=== PATIENT | female | born 1950 | race Caucasian/White ===

== ENCOUNTER → 2017-08-22 14:49 | Outpatient (POV) | payer MEDICARE, MEDICAID, OTHER, SELFPAY ==
[2017-08-22 15:03] VITALS: BP 134/78; PULSE 97; RESP 15; O2SAT 97; BMI 37.0
--- NOTE | 2017-08-22 15:57 | HMH.PAINSOAP ---
[facility] Pain Management SOAP Note Subjective:: Patient is a 67-year-old white female who presents today to discuss increased right knee pain. Patient is currently being treated for chronic pain secondary to degenerative disc disease of the lumbar spine and lumbar radiculopathy. Patient has had arthritis in her right knee for some time. She has had injections in the past which have been very beneficial to her. She states she had 80-90% relief for several months. Patient is currently on diclofenac 75 mg 1 p.o. twice daily and gabapentin 600 mg 1 p.o. 4 times daily. Patient states that both medications are very helpful. She does not find the gabapentin as effective as it used to be. She denies any side effects to the medication. Patient has tried physical therapy in the past with no relief. She has had cervical pain increase. Patient states that she feels a cracking and popping at times. Patient is currently working on losing weight. ROS General: no recent weight change, no fever, no sleep disturbances Respiratory: Chronic cough, COPD Cardiovascular/Peripheral Vascular: No chest pain, No palpitations, no edema, no shortness of breath. Gastrointestinal: no incontinence, normal bowel movements reported Genitourinary: no incontinence Musculoskeletal: Back pain, neck pain, right knee pain Psychiatric: normal mood/ affect, Neurological: [denies weakness in extremities], [denies balance issues] Objective:: Physical Exam General: Alert and oriented x3, no acute distress, pleasant and cooperative, [on room air] Lungs: Resps E/U, Symmetrical chest expansion, Eyes: PERRL Musculoskeletal: Flexion and extension of cervical and lumbar spine somewhat guarded secondary to pain, deep tendon reflexes normal, strength in upper and lower extremities [5/5], [abnormal gait noted], tenderness to palpation of right knee Neurological: speech clear, occupational therapy professor equal, no gross sensory deficits Assessment:: Degenerative joint disease right knee, degenerative disc disease of the lumbar spine, cervical pain Plan:: We will plan intra-articular right knee injection to help with her arthritis. She has had such good relief with this in the past I believe that this would be advantageous for her. We will also order cervical spine MRI to assess pathology potential worsening neck pain. We will also increase her gabapentin to 800 mg 1 p.o. 4 times daily. Patient's [facility] #[id number] reviewed and appropriate. Dr. Singh has reviewed this chart and approves of the plan. We will follow-up with the patient after her cervical MRI. This note was dictated using voice recognition software and may contain errors or omissions
--- NOTE | 2017-08-22 16:00 | P.CONS_ITS ---
[facility] Pain Management SOAP Note Subjective:: Patient is a 67-year-old white female who presents today to discuss increased right knee pain. Patient is currently being treated for chronic pain secondary to degenerative disc disease of the lumbar spine and lumbar radiculopathy. Patient has had arthritis in her right knee for some time. She has had injections in the past which have been very beneficial to her. She states she had 80-90% relief for several months. Patient is currently on diclofenac 75 mg 1 p.o. twice daily and gabapentin 600 mg 1 p.o. 4 times daily. Patient states that both medications are very helpful. She does not find the gabapentin as effective as it used to be. She denies any side effects to the medication. Patient has tried physical therapy in the past with no relief. She has had cervical pain increase. Patient states that she feels a cracking and popping at times. Patient is currently working on losing weight. ROS General: no recent weight change, no fever, no sleep disturbances Respiratory: Chronic cough, COPD Cardiovascular/Peripheral Vascular: No chest pain, No palpitations, no edema, no shortness of breath. Gastrointestinal: no incontinence, normal bowel movements reported Genitourinary: no incontinence Musculoskeletal: Back pain, neck pain, right knee pain Psychiatric: normal mood/ affect, Neurological: [denies weakness in extremities], [denies balance issues] Objective:: Physical Exam General: Alert and oriented x3, no acute distress, pleasant and cooperative, [ on room air] Lungs: Resps E/U, Symmetrical chest expansion, Eyes: PERRL Musculoskeletal: Flexion and extension of cervical and lumbar spine somewhat guarded secondary to pain, deep tendon reflexes normal, strength in upper and lower extremities [5/5], [abnormal gait noted], tenderness to palpation of right knee Neurological: speech clear, staffing recruiter equal, no gross sensory deficits Assessment:: Degenerative joint disease right knee, degenerative disc disease of the lumbar spine, cervical pain Plan:: We will plan intra-articular right knee injection to help with her arthritis. She has had such good relief with this in the past I believe that this would be advantageous for her. We will also order cervical spine MRI to assess pathology potential worsening neck pain. We will also increase her gabapentin to 800 mg 1 p.o. 4 times daily. Patient's [facility] #[id number] reviewed and appropriate. Dr. Singh has reviewed this chart and approves of the plan. We will follow-up with the patient after her cervical MRI. This note was dictated using voice recognition software and may contain errors or omissions
--- NOTE | 2017-08-24 08:03 | PC.PHONENOTE ---
08/22/17-called in Rx for Gabapentin 800mg QID with 2 refills to pt pharmacy
== END ==
PROVIDERS: Family Provider Emergency Medicine; PCP Emergency Medicine; Visit Provider Clinical Nurse Specialist Family Health
DX: M25.561 Pain in right knee (principal); M54.16 Radiculopathy, lumbar region
CPT/HCPCS: 99212

== ENCOUNTER → 2017-09-01 09:28 | Outpatient (CLI) | payer MEDICARE, MEDICAID, SELFPAY ==
--- NOTE | 2017-09-01 09:35 | MR_ITS ---
MR cervical spine wo con HISTORY: Neck pain with right arm pain ITS.REASON: NECK PAIN ORDERING PHYSICIAN: Rafy Kiser MD PATIENT AGE: 67 years COMPARISON: Plain films of 08/29/2014 TECHNIQUE: Standard multiplanar multiecho sequences are performed without contrast. 3-D MIP and myelographic images are also rendered and reviewed FINDINGS: There is normal alignment. The craniocervical junction has an unremarkable appearance. C2-C3: Small left paracentral disc protrusion/herniation abutting the anterior aspect of the cord on the left with minimal contour deformity. There is narrowing of the canal at this level C3-C4: Small central disc protrusion abutting the anterior central aspect of the cord with narrowing of the canal at 10 mm. C4-C5: Small central disc protrusion abutting the anterior aspect of the cord without displacement or deformity with narrowing of the canal at 10 mm. C5-C6: Mild degenerative disc disease with mild bulging disc along with uncovertebral hypertrophy. There is narrowing of the canal at 10 mm there is mild right-sided foraminal narrowing from uncovertebral hypertrophy. C6-C7: Degenerative disc disease with bulging disc with minimal lobular central and right paracentral disc protrusion with resulting narrowing of the canal and right lateral recess narrowing. Sagittal images of the upper thoracic spine demonstrate minimal central disc protrusion versus disc bulges at C7-T1 and T1-T2 without impingement upon the cord. IMPRESSION: 1. Abnormal MRI of the cervical spine with multilevel cervical spondylosis with degenerative disc disease and canal stenosis with multilevel small disc protrusions. Please see above for detailed description at each level. 2. Small left paracentral disc protrusion/herniation at C2-C3 with minimal impingement upon the cord 3. Minimal lobular central and right paracentral disc protrusion at C6-C7 with right lateral recess narrowing
== END ==
PROVIDERS: Family Provider Emergency Medicine; PCP Emergency Medicine; Visit Provider Emergency Medicine
DX: M54.2 Cervicalgia (principal)
CPT/HCPCS: 72141; 76376

== ENCOUNTER 2017-09-16 11:51 | Day surgery (SDC) | payer MEDICARE, MEDICAID, SELFPAY ==
[2017-09-16 12:16] VITALS: BP 102/52; PULSE 73; O2SAT 96; BMI 36.1
[2017-09-16 12:42] VITALS: BP 110/55; PULSE 80; RESP 20
[2017-09-16 12:44] VITALS: BP 112/88; PULSE 82; RESP 20
--- NOTE | 2017-09-16 12:51 | HMH.PMPROC ---
- Procedure Date: 09/16/17 Time: 12:45 Anesthesiologist:: Adam Singh MD Complications:: None Pre-procedure Diagnosis:: Osteoarthritis of the right knee Post-procedure Diagnosis:: Same Indications for Procedure:: Patient is a pleasant 67-year-old white female who presents today for right intra-articular knee injection. She has had these injections in the past with good relief. Patient states she had 80-90% relief for several months with her last injections. Patient is interested in an additional intra-articular right knee injection today. I discussed the risks and benefits with her and she wishes to proceed. Procedure Details:: Same benefits of the procedure were explained to the patient and informed consent was obtained. Patient was taken to the procedure room where noninvasive monitors were placed including noninvasive blood pressure cuff and pulse oximeter. Right knee was prepped with ChloraPrep used as a cleansing solution. A 25-gauge needle was used first medially and then laterally to inject 10 mL of bupivacaine 0.25% and Depo-Medrol 40 mg. Bandages were placed after procedure. Patient tolerated the procedure well. Plan and Disposition:: We will see this patient back in 2 weeks to reassess her symptoms at that time. Patient is instructed to call the office if she has any issues prior to her appointment.
[2017-09-16 13:07] VITALS: BP 104/68; PULSE 85; RESP 16; O2SAT 95
== END 2017-09-16 12:50 | disposition home or self-care (01) ==
LOC: SC.PAINP 11:54
PROVIDERS: Family Provider Emergency Medicine; PCP Emergency Medicine; Visit Provider Anesthesiology
DX: M17.11 Unilateral primary osteoarthritis, right knee (principal)
CPT/HCPCS: 20610; J1040

== ENCOUNTER → 2017-10-03 09:38 | Outpatient (POV) | payer MEDICARE, MEDICAID, SELFPAY ==
[2017-10-03 10:05] VITALS: BP 138/76; PULSE 60; RESP 18; TEMP 36.6; O2SAT 96; BMI 36.1
--- NOTE | 2017-10-03 10:38 | HMH.PAINSOAP ---
[facility] Pain Management SOAP Note Subjective:: Patient is a pleasant 67-year-old white female who presents today for follow-up after right intra-articular knee injection. Patient states she had 3 days of pain relief however all of her pain came back. Patient has had rooster comb injections by Dr. Pagan in the past and wishes to have another one of these. Patient states she had 3 months relief with that injection. Patient is currently being managed with gabapentin 800 mg 1 p.o. daily. Patient states she is also having new onset muscle spasms. She is having pain on the right side of her body at her neck down her right arm and her right leg. Patient states that it is intermittent and muscular in nature. She rates her pain a 5 out of 10 today. ROS General: no recent weight change, no fever, no sleep disturbances Respiratory: no cough, no shortness of air, no recurring pulmonary infections Cardiovascular/Peripheral Vascular: No chest pain, No palpitations, no edema, no shortness of breath. Gastrointestinal: no incontinence, normal bowel movements reported Genitourinary: no incontinence Musculoskeletal: Neck pain, right knee pain Psychiatric: normal mood/ affect, Neurological: [denies weakness in extremities], [denies balance issues] Objective:: Physical Exam General: Alert and oriented x3, no acute distress, pleasant and cooperative, [on room air] Lungs: Resps E/U, Symmetrical chest expansion, Eyes: PERRL Musculoskeletal: Range of motion right knee somewhat guarded secondary to pain, deep tendon reflexes normal, strength in upper and lower extremities [5/5], [abnormal gait noted] Neurological: speech clear, industrial methods consultant equal, no gross sensory deficits Assessment:: Osteoarthritis of the right knee, muscle spasms Plan:: We will send the patient to Dr. Pagan for another rooster comb injection. We will continue her gabapentin 800 mg 1 p.o. 4 times daily and we will: Zanaflex 4 mg 1 p.o. 3 times daily as needed for 1 month. Patient's [facility] #[id number] reviewed and appropriate. We will follow-up with this patient in 3 months and reassess her symptoms at that time. This note was dictated using voice recognition software and may contain errors or omissions
--- NOTE | 2017-10-03 10:44 | P.CONS_ITS ---
[facility] Pain Management SOAP Note Subjective:: Patient is a pleasant 67-year-old white female who presents today for follow-up after right intra-articular knee injection. Patient states she had 3 days of pain relief however all of her pain came back. Patient has had rooster comb injections by Dr. Pagan in the past and wishes to have another one of these. Patient states she had 3 months relief with that injection. Patient is currently being managed with gabapentin 800 mg 1 p.o. daily. Patient states she is also having new onset muscle spasms. She is having pain on the right side of her body at her neck down her right arm and her right leg. Patient states that it is intermittent and muscular in nature. She rates her pain a 5 out of 10 today. ROS General: no recent weight change, no fever, no sleep disturbances Respiratory: no cough, no shortness of air, no recurring pulmonary infections Cardiovascular/Peripheral Vascular: No chest pain, No palpitations, no edema, no shortness of breath. Gastrointestinal: no incontinence, normal bowel movements reported Genitourinary: no incontinence Musculoskeletal: Neck pain, right knee pain Psychiatric: normal mood/ affect, Neurological: [denies weakness in extremities], [denies balance issues] Objective:: Physical Exam General: Alert and oriented x3, no acute distress, pleasant and cooperative, [ on room air] Lungs: Resps E/U, Symmetrical chest expansion, Eyes: PERRL Musculoskeletal: Range of motion right knee somewhat guarded secondary to pain, deep tendon reflexes normal, strength in upper and lower extremities [5/5], [ abnormal gait noted] Neurological: speech clear, roller leveler operator equal, no gross sensory deficits Assessment:: Osteoarthritis of the right knee, muscle spasms Plan:: We will send the patient to Dr. Pagan for another rooster comb injection. We will continue her gabapentin 800 mg 1 p.o. 4 times daily and we will: Zanaflex 4 mg 1 p.o. 3 times daily as needed for 1 month. Patient's [facility] #[id number] reviewed and appropriate. We will follow-up with this patient in 3 months and reassess her symptoms at that time. This note was dictated using voice recognition software and may contain errors or omissions
--- NOTE | 2017-10-04 13:09 | PC.PHONENOTE ---
Addendum entered by Destinee Shetty RN 10/04/17 13:11: Original note was incorrect. Gabapentin 800mg TID with 2 refills and Zanaflex 4mg TID with no refills was called into pt's pharmacy Original Note: 10/03/17-called in Rx for Gabapentin 800mg TId with 2 refills, Naproxen 500mg BID with 2 refills and Prednisone 20mg BID x5 days, no refills
== END ==
PROVIDERS: Family Provider Emergency Medicine; PCP Emergency Medicine; Visit Provider Clinical Nurse Specialist Family Health
DX: M17.11 Unilateral primary osteoarthritis, right knee (principal)
CPT/HCPCS: 99212

== ENCOUNTER → 2017-10-07 11:10 | Outpatient (CLI) | payer MEDICARE, MEDICAID, SELFPAY ==
--- NOTE | 2017-10-07 11:19 | XR_ITS ---
XR knee RT 4V COMPARISON: Right knee 03/18/2017 HISTORY: Right knee TECHNIQUE: AP lateral and oblique weightbearing views and sunrise view FINDINGS: There is moderate joint space narrowing medially. There is marked spurring of tibial spines. This faint calcification of the lateral meniscus. There is moderate narrowing of the patellofemoral space with spurring of the superior and inferior borders of the patella. There is no definite effusion. IMPRESSION: Prominent osteoarthritic changes of the knee which have shown interval progression from the previous study with more prominent tibial spine spurring and more prominent joint space narrowing medially. Mild chondrocalcinosis of the lateral meniscus is again noted
== END ==
PROVIDERS: PCP Emergency Medicine; Visit Provider Clinical Nurse Specialist Family Health
DX: M25.561 Pain in right knee (principal)
CPT/HCPCS: 73564

== ENCOUNTER → 2018-01-02 09:32 | Outpatient (POV) | payer MEDICARE, MEDICAID, SELFPAY ==
[2018-01-02 09:37] VITALS: BP 105/66; PULSE 52; RESP 18; O2SAT 98; BMI 38.0
--- NOTE | 2018-01-02 09:45 | HMH.PAINSOAP ---
[facility] Pain Management SOAP Note Subjective:: patient Is a pleasant 67-year-old white female who presents today for medication refills. Patient has been getting knee injections from Dr. Pagan and states that it helps some however it does not improve all the way. Patient is uninterested in surgical intervention at this time. Patient's currently being medically managed with gabapentin 800 mg 1 p.o. 4 times daily and Zanaflex 4 mg 1 p.o. 3 times daily. Patient states she is doing well on this she denies any side effects to the medication. She rates her pain as 7 out of 10 today. Patient's [facility] #[id number] reviewed and appropriate. ROS General: no recent weight change, no fever, no sleep disturbances Respiratory: no cough, no shortness of air, no recurring pulmonary infections Cardiovascular/Peripheral Vascular: No chest pain, No palpitations, no edema, no shortness of breath. Gastrointestinal: no incontinence, normal bowel movements reported Genitourinary: no incontinence Musculoskeletal: Neck pain, right knee pain Psychiatric: normal mood/ affect Neurological: [denies weakness in extremities], [denies balance issues] Objective:: Physical Exam General: Alert and oriented x3, no acute distress, pleasant and cooperative, [on room air] Lungs: Resps E/U, Symmetrical chest expansion, Eyes: PERRL Musculoskeletal: Range motion right knee somewhat guarded secondary to pain, deep tendon reflexes normal, strength in upper and lower extremities [5/5], [abnormal gait noted] Neurological: speech clear, live ammunition inspector equal, no gross sensory deficits Assessment:: Osteoarthritis of the right knee, muscle spasms Plan:: We will refill the patient's gabapentin 800 mg 1 p.o. 4 times daily and Zanaflex 4 mg 1 p.o. 3 times daily. Patient's [facility] has been reviewed and appropriate. Dr. Singh is reviewed this chart and agrees with this plan of care we will follow-up with the patient in 3 months. Patient is going continue with Dr. Pagan receiving rooster comb injections. This note was dictated using voice recognition software and may contain errors or omissions
--- NOTE | 2018-01-02 09:48 | P.CONS_ITS ---
[facility] Pain Management SOAP Note Subjective:: patient Is a pleasant 67-year-old white female who presents today for medication refills. Patient has been getting knee injections from Dr. Pagan and states that it helps some however it does not improve all the way. Patient is uninterested in surgical intervention at this time. Patient's currently being medically managed with gabapentin 800 mg 1 p.o. 4 times daily and Zanaflex 4 mg 1 p.o. 3 times daily. Patient states she is doing well on this she denies any side effects to the medication. She rates her pain as 7 out of 10 today. Patient's [facility] #[id number] reviewed and appropriate. ROS General: no recent weight change, no fever, no sleep disturbances Respiratory: no cough, no shortness of air, no recurring pulmonary infections Cardiovascular/Peripheral Vascular: No chest pain, No palpitations, no edema, no shortness of breath. Gastrointestinal: no incontinence, normal bowel movements reported Genitourinary: no incontinence Musculoskeletal: Neck pain, right knee pain Psychiatric: normal mood/ affect Neurological: [denies weakness in extremities], [denies balance issues] Objective:: Physical Exam General: Alert and oriented x3, no acute distress, pleasant and cooperative, [ on room air] Lungs: Resps E/U, Symmetrical chest expansion, Eyes: PERRL Musculoskeletal: Range motion right knee somewhat guarded secondary to pain, deep tendon reflexes normal, strength in upper and lower extremities [5/5], [ abnormal gait noted] Neurological: speech clear, corporate officer equal, no gross sensory deficits Assessment:: Osteoarthritis of the right knee, muscle spasms Plan:: We will refill the patient's gabapentin 800 mg 1 p.o. 4 times daily and Zanaflex 4 mg 1 p.o. 3 times daily. Patient's [facility] has been reviewed and appropriate. Dr. Singh is reviewed this chart and agrees with this plan of care we will follow-up with the patient in 3 months. Patient is going continue with Dr. Pagan receiving rooster comb injections. This note was dictated using voice recognition software and may contain errors or omissions
== END ==
PROVIDERS: Family Provider Emergency Medicine; PCP Emergency Medicine; Visit Provider Clinical Nurse Specialist Family Health
DX: M17.11 Unilateral primary osteoarthritis, right knee (principal)
CPT/HCPCS: 99212

== ENCOUNTER → 2018-03-27 13:35 | Outpatient (POV) | payer MEDICARE, MEDICAID, SELFPAY ==
[2018-03-27 14:34] VITALS: BP 123/68; PULSE 71; RESP 18; O2SAT 98; BMI 39.5
--- NOTE | 2018-03-27 14:56 | HMH.PAINSOAP ---
[facility] Pain Management SOAP Note Subjective:: Patient is a [id number]-[id number]-cdo white female who presents today for medication refills. Patient's been getting the injections from Dr. Pagan however she states she still having knee pain. Patient is also asking me about a back brace. Patient states that her back is giving her trouble. Patient is currently on gabapentin 800 mg 1 p.o. 4 times daily and Zanaflex 4 mg 1 p.o. 3 times daily. Patient is doing well in regards to her medication and denies any side effects. She rates her pain today a 6 out of 10. ROS General: no recent weight change, no fever, no sleep disturbances Respiratory: no cough, no shortness of air, no recurring pulmonary infections Cardiovascular/Peripheral Vascular: No chest pain, No palpitations, no edema, no shortness of breath. Gastrointestinal: no incontinence, normal bowel movements reported Genitourinary: no incontinence Musculoskeletal: Back pain, right knee pain Psychiatric: normal mood/ affect Neurological: [denies weakness in extremities], [denies balance issues] Objective:: Physical Exam General: Alert and oriented x3, no acute distress, pleasant and cooperative, [on room air] Lungs: Resps E/U, Symmetrical chest expansion, Eyes: PERRL Musculoskeletal: Flexion and extension of lumbar spine somewhat guarded secondary to pain, deep tendon reflexes normal, strength in upper and lower extremities [5/5], [abnormal gait noted] Neurological: speech clear, meter shop supervisor equal, no gross sensory deficits Assessment:: Arthritis of the right knee, degenerative disc disease lumbar spine with lumbar radiculopathy Plan:: We will refill the patient's gabapentin 800 mg 1 p.o. 4 times daily. Patient's [facility] has been reviewed. Dr. Singh has agreed with this. We will follow-up with this patient and see if this is beneficial. This note was dictated using voice recognition software and may contain errors or omissions
--- NOTE | 2018-03-27 14:59 | P.CONS_ITS ---
[facility] Pain Management SOAP Note Subjective:: Patient is a unbvrapt-jonf-bfe white female who presents today for medication refills. Patient's been getting the injections from Dr. Pagan however she states she still having knee pain. Patient is also asking me about a back brace. Patient states that her back is giving her trouble. Patient is cu rrently on gabapentin 800 mg 1 p.o. 4 times daily and Zanaflex 4 mg 1 p.o. 3 times daily. Patient is doing well in regards to her medication and denies any side effects. She rates her pain today a 6 out of 10. ROS General: no recent weight change, no fever, no sleep disturbances Respiratory: no cough, no shortness of air, no recurring pulmonary infections Cardiovascular/Peripheral Vascular: No chest pain, No palpitations, no edema, no shortness of breath. Gastrointestinal: no incontinence, normal bowel movements reported Genitourinary: no incontinence Musculoskeletal: Back pain, right knee pain Psychiatric: normal mood/ affect Neurological: [denies weakness in extremities], [denies balance issues] Objective:: Physical Exam General: Alert and oriented x3, no acute distress, pleasant and cooperative, [on room air] Lungs: Resps E/U, Symmetrical chest expansion, Eyes: PERRL Musculoskeletal: Flexion and extension of lumbar spine somewhat guarded secondary to pain, deep tendon reflexes normal, strength in upper and lower extremities [5/5], [abnormal gait noted] Neurological: speech clear, barrel plater equal, no gross sensory deficits Assessment:: Arthritis of the right knee, degenerative disc disease lumbar spine with lumbar radiculopathy Plan:: We will refill the patient's gabapentin 800 mg 1 p.o. 4 times daily. Patient's [facility] has been reviewed. Dr. Singh has agreed with this. We will follow-up with this patient and see if this is beneficial. This note was dictated using voice recognition software and may contain errors or omissions
--- NOTE | 2018-07-28 13:45 | PC.NURSE ---
gabapentin 800mg qid with 2 refills faxed to [facility] per provider order
== END ==
PROVIDERS: Family Provider Emergency Medicine; PCP Emergency Medicine; Visit Provider Clinical Nurse Specialist Family Health
DX: M51.16 Intervertebral disc disorders with radiculopathy, lumbar region (principal); M17.11 Unilateral primary osteoarthritis, right knee
CPT/HCPCS: 99213

== ENCOUNTER → 2018-06-14 14:30 | Outpatient (CLI) | payer MEDICARE, MEDICAID, SELFPAY ==
--- NOTE | 2018-06-14 14:32 | XR_ITS ---
XR knee LT 4V HISTORY: Left knee pain ITS.REASON: knee pain ORDERING PHYSICIAN: Johnny Ruggiero PATIENT AGE: 68 years COMPARISON: None FINDINGS: No fracture or dislocation. No lytic or blastic change. Normal mineralization. Mild to moderate osteoarthritic changes are present involving all 3 compartments mainly manifested by osteophyte formation with some decrease in the joint space. IMPRESSION: [id number] osteoarthritis
--- NOTE | 2018-06-14 14:32 | XR_ITS ---
EXAM: XR lumbar spine 2-3V HISTORY: ITS.REASON: back pain ORDERING PHYSICIAN: Johnny Ruggiero PATIENT AGE: 68 years COMPARISON: None FINDINGS: Normal alignment. There is mild multilevel degenerative disc disease from T12 to S1 with some decrease in the disc spaces and anterior osteophytes. Facet arthritic changes are present at L4-5 and L5-S1. No fracture or dislocation. No lytic or blastic change. IMPRESSION: Lumbar spondylosis with degenerative disc disease and facet arthritic change
== END ==
PROVIDERS: PCP Nurse Practitioner Family; Visit Provider Nurse Practitioner Family
DX: M79.605 Pain in left leg (principal); M54.9 Dorsalgia, unspecified
CPT/HCPCS: 72100; 73564

== ENCOUNTER → 2018-07-12 09:52 | Outpatient (CLI) | payer MEDICARE, MEDICAID, SELFPAY ==
--- NOTE | 2018-07-12 10:00 | US_ITS ---
US Arterial Ankle Brachial Ind History: ITS.REASON: Leg pain bilateral rest pain left greater than right with claudication, ORDERING PHYSICIAN: Vicky Donohue PATIENT AGE: 68 years TECHNIQUE: Segmental pressures obtained of both right and left leg. These are compared to brachial blood pressure to yield index at each level sampled including summary FRANCISCO. The data sheets from the procedure are available in PACS FINDINGS Rest study only performed today No prior studies available for comparison. Blood pressures reported are in millimeters mercury. RIGHT LEG FRANCISCO = 1.0. RIGHT LEG TBI=1.0 Brachial BP: 143 Thigh BP: 147 Calf BP: 149 Ankle PT: 137 Ankle DP : 138 Digit =159 LEFT LEG FRANCISCO = 1.0 LEFT LEG TBI= 0.9 Brachial BPD: 132 Thigh BP: 156 Calf BP: 168 Ankle PT:147 Ankle DP: 147 Digit = 123 Pulses and waveforms: Normal IMPRESSION: The ABIs as reported above are within normal limits. Waveforms and pulses are also unremarkable.
[2018-07-12 13:20] LABS: Alanine Aminotransferase 28 U/L (12-78); Albumin Level 3.8 gm/dL (3.4-5.0); Alkaline Phosphatase 102 U/L (46-116); Aspartate Amino Transferase 15 U/L (15-37); Bilirubin,Direct 0.1 mg/dL (0.0-0.2); Bilirubin,Indirect 0.2 mg/dL (0.0-0.9); Bilirubin,Total 0.3 mg/dL (0.2-1.0); Chol/HDL Ratio 3.1 (1-3.5); Cholesterol 174 mg/dL (140-200); HDL Cholesterol 56 mg/dL (29-89); LDL Cholesterol 101 mg/dL (0-130); Total Protein,Serum 7.3 gm/dL (6.4-8.2); Triglycerides 86 mg/dL (30-200); VLDL Cholesterol 17 mg/dL (0-40)
== END ==
PROVIDERS: Visit Provider Urology
DX: E78.5 Hyperlipidemia, unspecified (principal); I10 Essential (primary) hypertension; I25.10 Atherosclerotic heart disease of native coronary artery without angina pectoris; R06.00 Dyspnea, unspecified; R07.89 Other chest pain; M79.604 Pain in right leg; M79.605 Pain in left leg; R09.89 Other specified symptoms and signs involving the circulatory and respiratory systems
CPT/HCPCS: 36415; 80061; 80076; 93922

== ENCOUNTER → 2018-10-10 11:40 | Outpatient (CLI) | payer MEDICARE, MEDICAID, SELFPAY ==
[2018-10-10 14:34] LABS: Anion Gap 15.1 mEq/L (5-15); Blood Urea Nitrogen 17 mg/dL (7-18); Calcium 8.9 mg/dL (8.5-10.1); Carbon Dioxide 26 mmol/L (21.0-32.0); Chloride 102 mmol/L (98-107); Creatinine,Serum 1.05 mg/dL (0.55-1.02); Estimated Glomerular Filt Rate 52 ml/min (>60); GFR (African American) 63 ML/MIN (>60); Glucose 112 mg/dL (74-106); Potassium 4.1 mmoL/L (3.5-5.1); Sodium 139 mmol/L (136-145)
== END ==
PROVIDERS: Visit Provider Nurse Practitioner Family
DX: I25.10 Atherosclerotic heart disease of native coronary artery without angina pectoris (principal); R06.02 Shortness of breath; R07.89 Other chest pain
CPT/HCPCS: 36415; 80048

== ENCOUNTER → 2018-10-19 09:51 | Outpatient (CLI) | payer MEDICARE, MEDICAID, SELFPAY ==
--- NOTE | 2018-10-19 09:53 | CA_ITS ---
PROCEDURE: 2-D M-mode and color Doppler study INDICATIONS FOR THE TEST: Chest pain x COPDx Heart Murmur Tobacco Smoking Palpitations Fatigue Syncope Edema Hypertension Diabetes Mellitus Rheumatic Fever SOBxDOExObesityxHyperlipidemiax Family History HD Additional History cad TDS COPD OBESITY PATIENT INFORMATION HEIGHT: 67 WEIGHT:256 GENDER: Female B/P:116/62 2-D/M-MODE INTERPRETATION: 2-D MEASUREMENTS OBSERVED VALUES IN CMS Right Ventricular Dimension (RVDd) 2.4 Interventricular Septum (Thickness)(IVsd) 1.0 Left Ventricular Internal Dimensions(LVIDd) 5.5 Left Ventricular Posterior Wall (Thickness)(LVPWd) 1.1 Aortic Root 3.1 Aortic Cusp Separation 1.8 Left Atrial Dimensions (LAD) 3.1 2D 1. Left atrium is mildly enlarged, left ventricle is normal size, mild concentric left ventricular hypertrophy, septum has sigmoid configuration, visually estimated ejection fraction 55% with no regional wall motion abnormality. 2. The right atrium and right ventricle are normal size and contractility. 3. The aortic, mitral and tricuspid valvular grossly normal. 4. The pulmonic valve is poorly present. 5. No significant pericardial effusion noted. DOPPLER INTERROGATION: Doppler interrogation of the aortic, mitral and tricuspid valvular presence of mild mitral and tricuspid regurgitation, tricuspid regurgitation jet velocity is inadequate for calculation of the right ventricular systolic pressure, grade 1 diastolic dysfunction seen with tissue Doppler evidence of raised left atrial pressure. CONCLUSION: 1. Mildly enlarged left atrium, normal left ventricular size, mild concentric left ventricular hypertrophy, septum has sigmoid configuration, visually estimated ejection fraction 55% with no regional wall motion abnormality, grade 1 diastolic dysfunction seen with tissue Doppler evidence of raised left atrial pressure. 2. Mild mitral and tricuspid regurgitation, tricuspid regurgitation jet velocity is inadequate for calculation of the right ventricular systolic pressure, inferior vena cava is poorly visualized. 3. No significant pericardial effusion noted.
== END ==
PROVIDERS: PCP Emergency Medicine; Visit Provider Nurse Practitioner Family
DX: I25.10 Atherosclerotic heart disease of native coronary artery without angina pectoris (principal); R06.02 Shortness of breath; R07.89 Other chest pain; R60.0 Localized edema; R94.30 Abnormal result of cardiovascular function study, unspecified
CPT/HCPCS: 93306

== ENCOUNTER → 2018-11-06 14:08 | Outpatient (POV) | payer MEDICARE, MEDICAID, SELFPAY ==
--- NOTE | 2018-11-06 14:33 | P.CONS_ITS ---
[facility] Pain Management SOAP Note Subjective:: She is a pleasant 68-year-old white female who presents today to discuss her left knee pain. Patient has extreme left knee pain. Patient has had multiple intra-articular knee injections with no success. Patient and I discussed geniculate block. She would like to proceed with this. Patient's been to physical therapy. ROS General: no recent weight change, no fever, no sleep disturbances Respiratory: no cough, no shortness of air, no recurring pulmonary infections Cardiovascular/Peripheral Vascular: No chest pain, No palpitations, no edema, no shortness of breath. Gastrointestinal: no incontinence, normal bowel movements reported Genitourinary: no incontinence Musculoskeletal: Left knee pain Psychiatric: normal mood/ affect Neurological: [denies weakness in extremities], [denies balance issues] Objective:: Physical Exam General: Alert and oriented x3, no acute distress, pleasant and cooperative, [on room air] Lungs: Resps E/U, Symmetrical chest expansion, Eyes: PERRL Musculoskeletal: Flexion and extension left knee somewhat guarded secondary to pain, deep tendon reflexes normal, strength in upper and lower extremities [5/5], [abnormal gait noted] Neurological: speech clear, occupational health physician equal, no gross sensory deficits Assessment:: Degenerative joint disease left knee, arthritis Plan:: We will schedule left geniculate knee block patient may be an ablation candidate I will follow-up with the patient after injection reassess her symptoms at that time. Dr. Singh has reviewed this note and agrees with this plan of care. This note was dictated using voice recognition software and may contain errors or omissions
[2018-11-06 14:48] VITALS: BP 100/71; PULSE 78; RESP 18; O2SAT 98; BMI 41.8
== END ==
PROVIDERS: PCP Emergency Medicine; Visit Provider Clinical Nurse Specialist Family Health
DX: M17.12 Unilateral primary osteoarthritis, left knee; M19.90 Unspecified osteoarthritis, unspecified site
CPT/HCPCS: 99212

== ENCOUNTER → 2018-12-04 12:46 | Outpatient (POV) | payer MEDICARE, MEDICAID, SELFPAY ==
--- NOTE | 2018-12-04 13:13 | HMH.PAINSOAP ---
[facility] Pain Management SOAP Note Subjective:: Patient is a pleasant 68-year-old white female who is being treated for left knee pain with degenerative osteoarthritis. She is following up after a genicular nerve block. The patient says her pain has returned, but she did have 100% relief for 3 days with the genicular block. The patient has had several intra-articular knee injections with little to no relief. He has attempted physical therapy and NSAIDs. She would like to discuss RFA today. She rates her pain today a 6 out of 10 ROS General: no recent weight change, no fever, no sleep disturbances Respiratory: no cough, no shortness of air, no recurring pulmonary infections Cardiovascular/Peripheral Vascular: No chest pain, No palpitations, no edema, no shortness of breath. Gastrointestinal: no incontinence, normal bowel movements reported Genitourinary: no incontinence Musculoskeletal: Left knee pain Psychiatric: normal mood/ affect, [denies depression], [denies anxiety] Neurological: [denies weakness in extremities], [denies balance issues] Objective:: Physical Exam General: Alert and oriented x3, no acute distress, pleasant and cooperative, [on room air] Lungs: Resps E/U, Symmetrical chest expansion, Eyes: PERRL Musculoskeletal: Flexion and extension of left leg somewhat guarded secondary to pain and with decreased range of motion, deep tendon reflexes normal, Neurological: speech clear, religion department chair equal, no gross sensory deficits Assessment:: Left knee pain with degenerative osteoarthritis Plan:: We will schedule the patient for RFA of the left knee. Is not on any anticoagulation therapy. She is continuing a home stretching program and NSAIDs. We will see her after her procedure. She is been instructed to call the office if she has any concerns prior to her next visit. Dr. Singh has reviewed this note and agrees with this plan of care. This note was dictated using voice recognition software and may contain errors or omissions
--- NOTE | 2018-12-04 13:17 | P.CONS_ITS ---
[facility] Pain Management SOAP Note Subjective:: Patient is a pleasant 68-year-old white female who is being treated for left knee pain with degenerative osteoarthritis. She is following up after a genicular nerve block. The patient says her pain has returned, but she did have 100% relief for 3 days with the genicular block. The patient has had several intra-articular knee injections with little to no relief. He has attempted physical therapy and NSAIDs. She would like to discuss RFA today. She rates her pain today a 6 out of 10 ROS General: no recent weight change, no fever, no sleep disturbances Respiratory: no cough, no shortness of air, no recurring pulmonary infections Cardiovascular/Peripheral Vascular: No chest pain, No palpitations, no edema, no shortness of breath. Gastrointestinal: no incontinence, normal bowel movements reported Genitourinary: no incontinence Musculoskeletal: Left knee pain Psychiatric: normal mood/ affect, [denies depression], [denies anxiety] Neurological: [denies weakness in extremities], [denies balance issues] Objective:: Physical Exam General: Alert and oriented x3, no acute distress, pleasant and cooperative, [on room air] Lungs: Resps E/U, Symmetrical chest expansion, Eyes: PERRL Musculoskeletal: Flexion and extension of left leg somewhat guarded secondary to pain and with decreased range of motion, deep tendon reflexes normal, Neurological: speech clear, oil burner journeyman equal, no gross sensory deficits Assessment:: Left knee pain with degenerative osteoarthritis Plan:: We will schedule the patient for RFA of the left knee. Is not on any anticoagulation therapy. She is continuing a home stretching program and NSAIDs. We will see her after her procedure. She is been instructed to call the office if she has any concerns prior to her next visit. Dr. Singh has reviewed this note and agrees with this plan of care. This note was dictated using voice recognition software and may contain errors or omissions
[2018-12-04 13:24] VITALS: BP 98/65; PULSE 84; RESP 18; O2SAT 98; BMI 38.7
== END ==
PROVIDERS: PCP Emergency Medicine; Visit Provider Clinical Nurse Specialist Family Health
DX: M17.12 Unilateral primary osteoarthritis, left knee (principal)
CPT/HCPCS: 99212

== ENCOUNTER → 2019-05-18 06:24 | Outpatient (CLI) | payer MEDICARE, OTHER, SELFPAY ==
--- NOTE | 2019-05-18 06:25 | CA_ITS ---
APPROVED REPORT EXAM: Comprehensive 2D, Doppler, and color-flow Echocardiogram Keysmith: Martha Medina CRT Ht: 5 ft 6 in Wt: 246lbs BSA: 2.18 BP: 111/69 mmHg Indications: CP, CAD,SOB, COPD, EDEMA, hyperlipidemia, hypertension, obesity. M-Mode Dimensions RVDd 1.93 cm (0.9-2.6) LVDd 3.75 cm (3.5-5.7) LVDs 2.61 cm (3.5-5.7) IVSd 1.14 cm (0.6-1.1) PWd 0.86 cm (0.6-1.1) EF (Teich) 58.70% FS 30.40% EDV (Teich) 60.00 mL ESV (Teich) 24.80 mL LV Diastology E/A Ratio 1.02 Mitral Valve MV A Velocity 69.00 (40-130 cm/s) Left Ventricle Left atrium is mildly enlarged, left ventricle is normal size, mild concentric left ventricular hypertrophy, visually estimated ejection fraction 55% with no regional wall motion abnormality, grade 1 diastolic dysfunction seen with tissue Doppler evidence of raise left atrial pressure. Right Ventricle Right atrium and right ventricle are normal size and contractility. Aortic Valve Aortic valve is minimally thickened and fibrosed. There is no aortic stenosis aortic insufficiency. Mitral Valve Mitral valve is grossly normal, there is mild mitral regurgitation. Tricuspid Valve Tricuspid valve is grossly normal, there is mild tricuspid regurgitation. Pulmonic Valve Pulmonic valve is poorly visualized. Great Vessels Aortic root is normal size. Pericardium No significant pericardial effusion noted. Conclusion 1. Mildly enlarged left atrium, normal left ventricular size, mild concentric left ventricular hypertrophy, visually estimated ejection fraction 55% with no regional wall motion abnormality, grade 1 diastolic dysfunction seen without tissue Doppler evidence of raise left atrial pressure. 2. Mild mitral and tricuspid regurgitation. 3. No significant pericardial effusion noted. Electronically signed by : Tom Snider, 05/18/2019 15:19:38
--- NOTE | 2019-05-18 06:33 | CA_ITS ---
APPROVED REPORT Exam: Pharmacologic Technologist: emma way, Ht: 5 ft 6 in Wt: 230 lbs BSA: 2.12 m2 HR: 70 bpm BP: 111/69 mmHg Rhythm: NSR Indications: CP, SOB Medical History Medications: Omeprazole,,,,, Verapamil,,,,, Trazadone,,,,, Escitalopram,,,,, Lasix,,,,, Albuterol,,,,, Bisprolol,,,,, Venlafaxine,,,,, SpirOnolactone,,,,, BusIPIRONE,,,,, LipTOR,,,,, INCrUSE,,,,, Allergies: No known drug allergies Cardiac Risk Factors: HTN, Hyperlipidemia Stress Test Details Test: LEXISCAN HR Resting HR: 72 bpm Max Heart Rate (APMHR): 151 bpm Max HR Achieved: 104 bpm Target HR (85% APMHR): 128 bpm % of APMHR: 68 Recovery HR: 82 bpm BP Resting BP: 111/66 mmHg Max BP: 123/56 mmHg Recovery BP: 123.0/56.0 mmHg ECG Resting ECG: NSR Clinical Reason for Termination: Completed Protocol Exercise duration: 04:10 min Highest Stage Achieved: Stress ECG Conclusion No symptoms or arrhythmias. Less than 1.5mm ST Segment Changes. Non-Diagnostic. Electronically signed by : Tom Snider, 05/18/2019 14:49:07
--- NOTE | 2019-05-18 06:33 | NM_ITS ---
APPROVED REPORT Exam: Nuclear Stress Test Indication: chest pain, short of breath, fatigue Patient Location: Outpatient Stress Tech: Luh ArizmendiElvia CO Tech:NIKKIE Prado RT(R)(N) Ht: 5 ft 6 in Wt: 230 lbs Bra Size: 38c HR: 70 bpm BP: 111/69 mmHg BSA: 2.12 m2 BMI: 37.1 History: chest pain, short of breath, fatigue Procedure: Patient received a 0.4 mg of intravenous Lexiscan, resting heart rate 70 bpm, resting blood pressure 111/69 mmHg, with Lexiscan maximum heart rate achived was 103 bpm which is Less than 85 % of the maximum predicted heart rate and blood pressure was 103/61 mmHg. With Lexiscan, patient denied any complaint of chest pain. Electrocardiogram Resting electro cardia Reese showed sinus rhythm, with Lexiscan less than 1.[address] segment depression noted from the baseline EKG. The EKG portion of the Lexiscan Myoview is nondiagnostic. Cardiac Stress and Resting SPECT Images: Cardiac Stress and Resting SPECT images were obtained using technetium 99m Myoview 32.2 mCi stress and 10.88 mCi at rest. Gated SPECT with analysis of segmental wall motion and calculation of the ejection fraction also done. Cardiac stress and resting SPECT images show decreased tracer activity in the anterolateral wall which improves on the resting images suggestive of reversible ischemia, computer derived ejection fraction is over 65% with no regional wall motion abnormality, right ventricle is normal size and contractility. This study is technically limited due to patient's body habitus. Conclusion: 1. The EKG portion of the Lexiscan Myoview is nondiagnostic. 2. Scintigraphic evidence of mild reversible ischemia involving the anterolateral wall, computer derived ejection fraction is over 65% with no regional wall motion abnormality, right ventricle is normal size and contractility. 3. Likely abnormal Lexiscan Myoview study however the study is technically limited due to patient's body habitus. Electronically signed by : Tom Snider, 05/18/2019 14:50:49
--- NOTE | 2019-05-18 10:51 | HMH.ITSHM ---
Current Home Medications as stated by this patient Anitra Zhou or pharmaceutical sales representative. [] verapamil venlafaxine trazodone omeprazole lisinopril gabapentin furosemide bisoprolol asa
== END ==
PROVIDERS: PCP Emergency Medicine; Visit Provider Urology
DX: I10 Essential (primary) hypertension; I25.10 Atherosclerotic heart disease of native coronary artery without angina pectoris; R06.02 Shortness of breath; R07.89 Other chest pain; R60.0 Localized edema; E78.49 Other hyperlipidemia
CPT/HCPCS: 78452; 93017; 93306; A9502; J2785

== ENCOUNTER → 2019-09-21 14:26 | Outpatient (CLI) | payer MEDICARE, OTHER, SELFPAY ==
--- NOTE | 2019-09-21 14:32 | XR_ITS ---
PROCEDURE: XR KNEE LT 4V CLINICAL INDICATION: left knee pain Knee pain COMPARISON: [id number] KNEE-3 VIEWS-RT from 03/18/2017 [id number] XR knee RT 4V from 10/07/2017 [id number] XR knee LT 4V from 06/14/2018 FINDINGS: No fracture or dislocation. No lytic or blastic change. There is normal mineralization. There are mild to moderate osteoarthritic changes involving all 3 compartments which is slightly progressed from 06/14/2018. There is a bone island along the lateral aspect of the intercondylar notch. There lucency is present at the bases tibial spurs possibly related underlying fracture of the spur. Other findings:None. IMPRESSION: Osteoarthritis with possible fracture of tibial spurs Dictated by: Sarmad Mensah MD 09/21/2019 15:41 Electronically signed by Sarmad Mensah MD in [place] 09/21/2019 15:41
== END ==
PROVIDERS: PCP Emergency Medicine; Visit Provider Orthopaedic Surgery
DX: M25.562 Pain in left knee (principal)
CPT/HCPCS: 73564

== ENCOUNTER 2019-09-21 15:21 | Outpatient (RCR) | payer MEDICARE, OTHER, SELFPAY | END 2019-09-21 16:00 | disposition home or self-care (01) | LOC: PT 15:21 | PROVIDERS: Visit Provider Orthopaedic Surgery | DX: M17.12 Unilateral primary osteoarthritis, left knee (principal) | CPT/HCPCS: 97760 ==

== ENCOUNTER → 2019-11-21 17:00 | Outpatient (CLI) | payer MEDICARE, OTHER, SELFPAY ==
[2019-11-21 18:29] LABS: Basophils # 0.1 K/mm3 (0-0.2); Basophils % 1.1 % (0.1-2.0); Eosinophils # 0.2 K/mm3 (0.0-0.4); Eosinophils % 2.8 % (0.1-12.0); Hematocrit 42.2 % (37.0-47.0); Hemoglobin 13.9 g/dL (12.2-16.2); Lymphocytes # 1.4 K/mm3 (0.7-4.5); Lymphocytes % 26.3 % (10-50); Mean Corpuscular HGB Conc 33.1 g/dL (31.8-35.4); Mean Corpuscular Hemoglobin 30.5 pg (27.0-31.2); Mean Corpuscular Volume 92.1 fl (81-99); Mean Platelet Volume 10.8 fl (7.4-10.4); Monocytes # 0.3 K/mm3 (0.1-1.0); Monocytes % 6.1 % (1.7-9.3); Neutrophils # 3.4 K/mm3 (1.8-7.8); Neutrophils % 63.6 % (37.0-80.0); Platelet Count 132 K/mm3 (142-424); Red Blood Count 4.58 M/mm3 (4.20-5.40); Red Cell Distribution Width 12.9 % (11.5-17.5); White Blood Count 5.3 K/mm3 (4.8-10.8)
[2019-11-21 18:31] LABS: Alanine Aminotransferase 16 U/L (12-78); Albumin Level 4.4 g/dl (3.5-5.0); Albumin/Globulin Ratio 1.4 (1.1-1.8); Alkaline Phosphatase 109 U/L (38-126); Anion Gap 9.7 mEq/L (5-15); Aspartate Amino Transferase 25 U/L (14-36); Bilirubin,Total 0.4 mg/dl (0.2-1.3); Blood Urea Nitrogen 17 mg/dl (7-17); Calcium 9.8 mg/dl (8.4-10.2); Carbon Dioxide 29 mmol/L (22.0-30.0); Chloride 102 mmol/L (98-107); Chol/HDL Ratio 2.5 (1-3.5); Cholesterol 161 mg/dl (140-200); Estimated Glomerular Filt Rate 62 ml/min (>60); GFR (African American) 75 ML/MIN (>60); Globulin 3.1 g/dL (1.3-3.2); Glucose 109 mg/dl (74-100); HDL Cholesterol 65 mg/dl (40-60); Potassium 4.7 mmoL/L (3.5-5.1); Sodium 136 mmol/L (136-145); Total Protein,Serum 7.5 g/dl (6.3-8.2); Triglycerides 133 mg/dl (30-150); VLDL Cholesterol 27 mg/dL (0-40)
[2019-11-21 18:42] LABS: Direct LDL Cholesterol 87.22 mg/dL (100-129)
[2019-11-21 18:49] LABS: T4 (Thyroxine) 7.1 ug/dl (5.53-11.0)
[2019-11-21 19:03] LABS: Thyroid Stimulating Hormone 3.17 uIU/mL (0.465-4.68)
[2019-11-23 20:32] LABS: Vitamin D 25 Hydroxy 34.1 ng/mL (30.0-100.0)
== END ==
PROVIDERS: Visit Provider Nurse Practitioner Family
DX: I10 Essential (primary) hypertension (principal); R60.9 Edema, unspecified; R07.89 Other chest pain; R04.0 Epistaxis
CPT/HCPCS: 80053; 80061; 82652; 84436; 84443; 85025

== ENCOUNTER → 2020-01-02 14:50 | Outpatient (CLI) | payer MEDICARE, OTHER, SELFPAY ==
[2020-01-02 15:42] LABS: Chloride 101 mmol/L (98-107); Potassium 4.7 mmoL/L (3.5-5.1); Sodium 135 mmol/L (136-145)
[2020-01-02 15:45] LABS: Blood Urea Nitrogen 13 mg/dl (7-17); Estimated Glomerular Filt Rate 83 ml/min (>60); GFR (African American) 100 ML/MIN (>60)
[2020-01-02 15:46] LABS: Anion Gap 10.7 mEq/L (5-15); Calcium 9.6 mg/dl (8.4-10.2); Carbon Dioxide 28 mmol/L (22.0-30.0); Glucose 103 mg/dl (74-100)
[2020-01-02 15:55] LABS: NT Pro Brain Natriuretic Pep. 111 pg/mL (0-125)
== END ==
PROVIDERS: Visit Provider Urology
DX: E78.2 Mixed hyperlipidemia (principal); I10 Essential (primary) hypertension; I20.9 Angina pectoris, unspecified; R06.02 Shortness of breath
CPT/HCPCS: 36415; 80048; 83880

== ENCOUNTER → 2020-02-06 14:25 | Outpatient (CLI) | payer MEDICARE, OTHER, SELFPAY | PROVIDERS: PCP Emergency Medicine; Visit Provider Nurse Practitioner Family | DX: R00.2 Palpitations (principal); E78.2 Mixed hyperlipidemia; I10 Essential (primary) hypertension; I25.10 Atherosclerotic heart disease of native coronary artery without angina pectoris; R06.02 Shortness of breath; R07.89 Other chest pain; R60.0 Localized edema | CPT/HCPCS: 93270 ==

== ENCOUNTER → 2020-10-22 18:11 | Outpatient (CLI) | payer MEDICARE, OTHER, SELFPAY ==
[2020-10-22 18:31] LABS: Basophils # 0.1 K/mm3 (0-0.2); Basophils % 0.5 % (0.1-2.0); Eosinophils # 0.1 K/mm3 (0.0-0.4); Eosinophils % 1.1 % (0.1-12.0); Hematocrit 43.6 % (37.0-47.0); Lymphocytes # 1.6 K/mm3 (0.7-4.5); Lymphocytes % 16.4 % (10-50); Mean Corpuscular Hemoglobin 29.8 pg (27.0-31.2); Mean Corpuscular Volume 93.2 fl (81-99); Monocytes # 0.5 K/mm3 (0.1-1.0); Monocytes % 5.7 % (1.7-9.3); Neutrophils # 7.2 K/mm3 (1.8-7.8); Neutrophils % 76.3 % (37.0-80.0); Platelet Count 151 K/mm3 (142-424); Red Blood Count 4.68 M/mm3 (4.20-5.40); Red Cell Distribution Width 13.4 % (11.5-17.5); White Blood Count 9.5 K/mm3 (4.8-10.8)
[2020-10-22 18:55] LABS: Alanine Aminotransferase 22 U/L (12-78); Albumin Level 4.4 g/dl (3.5-5.0); Albumin/Globulin Ratio 1.5 (1.1-1.8); Alkaline Phosphatase 104 U/L (38-126); Anion Gap 15.5 mEq/L (5-15); Aspartate Amino Transferase 27 U/L (14-36); Bilirubin,Total 0.3 mg/dl (0.2-1.3); Blood Urea Nitrogen 22 mg/dl (7-17); Calcium 9.9 mg/dl (8.4-10.2); Carbon Dioxide 25 mmol/L (22.0-30.0); Chloride 104 mmol/L (98-107); Chol/HDL Ratio 3.2 (1-3.5); Cholesterol 179 mg/dl (140-200); Estimated Glomerular Filt Rate 55 ml/min (>60); GFR (African American) 66 ML/MIN (>60); Globulin 2.9 g/dL (1.3-3.2); Glucose 120 mg/dl (74-100); HDL Cholesterol 56 mg/dl (40-60); Potassium 4.5 mmoL/L (3.5-5.1); Sodium 140 mmol/L (136-145); Total Protein,Serum 7.3 g/dl (6.3-8.2); Triglycerides 127 mg/dl (30-150); VLDL Cholesterol 25 mg/dL (0-40)
[2020-10-22 19:04] LABS: NT Pro Brain Natriuretic Pep. 131 pg/mL (0-125)
[2020-10-22 19:06] LABS: Direct LDL Cholesterol 87.11 mg/dL (100-129)
[2020-10-22 19:13] LABS: Free T4 (Free Thyroxine) 1.05 ng/dl (0.78-2.19)
[2020-10-22 19:26] LABS: Thyroid Stimulating Hormone 2.54 uIU/mL (0.465-4.68)
[2020-10-24 16:41] LABS: Hemoglobin A1C 6.3 % (4.0-6.0)
== END ==
PROVIDERS: Visit Provider Emergency Medicine
DX: G62.9 Polyneuropathy, unspecified (principal); I50.9 Heart failure, unspecified; R73.09 Other abnormal glucose
CPT/HCPCS: 80053; 80061; 83036; 83880; 84439; 84443; 85025

== ENCOUNTER → 2020-10-30 07:50 | Outpatient (CLI) | payer MEDICARE, OTHER, SELFPAY ==
--- NOTE | 2020-10-30 08:13 | CA_ITS ---
APPROVED REPORT EXAM: Comprehensive 2D, Doppler, and color-flow Echocardiogram Patent Paralegal: Akosua Martinez, DONNIE, RVS Ht: 5 ft 7 in Wt: 253lbs BSA: 2.24 BP: 126/79 mmHg Indications: Palpitations, CP, COPD, SOA, HTN, HLD Echo Enhancing Agent Comments: mild pericadial effusion 2D Dimensions IVSd 0.92 cm LVEF (Visual) 67.60 % PWd 1.00 cm LA Volume 60.00 mL LVDd 4.49 cm LA Volume Index 26.90 mL/m2 (M/F) 16-34 LVDs 2.81 cm LVOT 1.89 cm (M/F) 1.5-2.5 M-Mode Dimensions LA Diam 4.16 cm (1.9-4.0) Ao Diam 2.98 cm (2.0-3.7) EPSs 0.51 cm TAPSE 2.47 (<1.7) LV Diastology E Decel Time 243.00 (160-240 msec) E/A Ratio 0.80 MED E' 10.00 (< 7 cm/sec) MED A' 13.90 cm/s E'/MED E' Ratio 6.49 (>14) LAT E' 14.30 (<10 cm/sec) LAT A' 6.60 cm/s E/LAT E' Ratio 4.54 (>14) Aortic Valve LVOT Max 105.00 (70-110 cm/s) LVOT VTI 21.53 cm AoV Peak Antonio. 144.00 (50-130 cm/s) AO Peak GR. 8.20 mmHg AO Mean GR. 3.70 (<5 mmHg) AO VTI 25.27 (18-25 cm) KOLTON (VTI) 2.39 (2.5-4.5 cm2) Mitral Valve MV A Velocity 81.00 (40-130 cm/s) E/A Ratio 0.80 MV Decel. Time 243.00 (160-240 ms) Pulmonary Valve PV Peak Velocity 83.00 (50-150 cm/s) Tricuspid Valve TR P. Velocity 267.00 cm/s RAP Estimate 10.00 mmHg RVSP 38.50 mmHg Left Ventricle Left atrium is mildly enlarged, left ventricle is normal size, mild concentric left ventricular hypertrophy, visually estimated ejection fraction 55% with no regional wall motion abnormality, grade 1 diastolic dysfunction seen without tissue Doppler evidence of raise left atrial pressure. Right Ventricle Right atrium and right ventricle and normal size and contractility. Aortic Valve Aortic valve is minimally thickened and fibrosed, there is no aortic stenosis or aortic insufficiency. Mitral Valve Mitral valve is grossly normal, there is trace mitral regurgitation. Tricuspid Valve Tricuspid grossly normal, there is trace tricuspid regurgitation, tricuspid regurgitation jet velocity is inadequate for calculation of the right ventricular systolic pressure Pulmonic Valve Pulmonic valve is poorly visualized. Great Vessels Aortic root is normal size. Pericardium No significant pericardial effusion noted. Conclusion 1. Normal left ventricular size, mild concentric left ventricular hypertrophy, visually estimated ejection fraction 55% with no regional wall motion abnormality, grade 1 diastolic dysfunction seen without tissue Doppler evidence of raise left atrial pressure. 2. Trace mitral and tricuspid regurgitation. 3. No significant pericardial effusion noted. Electronically signed by : Tom Snider, 10/30/2020 16:55:14
== END ==
PROVIDERS: PCP Emergency Medicine; Visit Provider Emergency Medicine
DX: E78.2 Mixed hyperlipidemia (principal); I10 Essential (primary) hypertension; J44.9 Chronic obstructive pulmonary disease, unspecified; R06.02 Shortness of breath; R07.89 Other chest pain; R60.0 Localized edema; R94.30 Abnormal result of cardiovascular function study, unspecified
CPT/HCPCS: 93306

== ENCOUNTER → 2020-12-02 15:58 | Outpatient (CLI) | payer MEDICARE, OTHER, SELFPAY ==
[2020-12-02 17:23] LABS: Anion Gap 11.3 mEq/L (5-15); Blood Urea Nitrogen 12 mg/dl (7-17); Calcium 9.3 mg/dl (8.4-10.2); Carbon Dioxide 27 mmol/L (22.0-30.0); Chloride 106 mmol/L (98-107); Estimated Glomerular Filt Rate 71 ml/min (>60); GFR (African American) 86 ML/MIN (>60); Glucose 101 mg/dl (74-100); Potassium 4.3 mmoL/L (3.5-5.1); Sodium 140 mmol/L (136-145)
== END ==
PROVIDERS: Visit Provider Urology
DX: E78.2 Mixed hyperlipidemia (principal); I10 Essential (primary) hypertension; I25.10 Atherosclerotic heart disease of native coronary artery without angina pectoris; R00.2 Palpitations; R06.02 Shortness of breath; R07.89 Other chest pain; R60.0 Localized edema
CPT/HCPCS: 36415; 80048

== ENCOUNTER → 2021-01-03 12:36 | Outpatient (CLI) | payer MEDICARE, OTHER, SELFPAY | PROVIDERS: PCP Emergency Medicine; Visit Provider Ophthalmology | DX: Z01.812 Encounter for preprocedural laboratory examination (principal) ==

== ENCOUNTER → 2021-01-03 13:25 | Outpatient (CLI) | payer MEDICARE, OTHER, SELFPAY | PROVIDERS: Visit Provider Ophthalmology | DX: Z01.812 Encounter for preprocedural laboratory examination (principal); Z20.822 Contact with and (suspected) exposure to COVID-19 | CPT/HCPCS: U0003 ==

== ENCOUNTER → 2021-02-02 14:59 | Outpatient (CLI) | payer MEDICARE, OTHER, SELFPAY | PROVIDERS: Visit Provider Ophthalmology | DX: Z01.812 Encounter for preprocedural laboratory examination (principal); Z20.822 Contact with and (suspected) exposure to COVID-19 | CPT/HCPCS: U0003 ==

== ENCOUNTER 2021-02-03 07:19 | Day surgery (SDC) | payer MEDICARE, OTHER, SELFPAY ==
[2021-01-30 12:31] VITALS: BMI 40.5
[2021-02-03] VITALS (9 sets, daily range): BP systolic 104–136; BP diastolic 59–70; PULSE 50–61; RESP 16–18; TEMP 36.4–36.7; O2SAT 93–99
== END 2021-02-03 10:05 | disposition home or self-care (01) ==
LOC: OR 07:21
PROVIDERS: PCP Emergency Medicine; Visit Provider Ophthalmology
DX: H25.813 Combined forms of age-related cataract, bilateral (principal); I25.10 Atherosclerotic heart disease of native coronary artery without angina pectoris; F32.9 Major depressive disorder, single episode, unspecified; E78.5 Hyperlipidemia, unspecified; R03.0 Elevated blood-pressure reading, without diagnosis of hypertension; Z79.82 Long term (current) use of aspirin; Z79.899 Other long term (current) drug therapy
CPT/HCPCS: 66984; V2632

== ENCOUNTER → 2021-02-16 14:28 | Outpatient (CLI) | payer MEDICARE, OTHER, SELFPAY | PROVIDERS: Visit Provider Ophthalmology | DX: Z01.812 Encounter for preprocedural laboratory examination (principal); Z20.822 Contact with and (suspected) exposure to COVID-19 | CPT/HCPCS: U0003 ==

== ENCOUNTER 2021-02-17 07:50 | Day surgery (SDC) | payer MEDICARE, OTHER, SELFPAY ==
[2021-02-13 08:31] VITALS: BMI 42.7
[2021-02-17 08:02] VITALS: BP 152/36; PULSE 53; RESP 18; TEMP 36.1; O2SAT 93
[2021-02-17 09:40] VITALS: BP 128/65; PULSE 51; RESP 16; O2SAT 96
[2021-02-17 09:45] VITALS: BP 128/72; PULSE 50; RESP 16; O2SAT 98
[2021-02-17 09:50] VITALS: BP 127/68; PULSE 50; RESP 16; O2SAT 98
[2021-02-17 09:55] VITALS: BP 143/63; PULSE 51; RESP 16; O2SAT 98
[2021-02-17 09:58] VITALS: BP 99/65; PULSE 62; RESP 16; TEMP 36.1; O2SAT 94
== END 2021-02-17 10:08 | disposition home or self-care (01) ==
LOC: OR 07:52
PROVIDERS: PCP Emergency Medicine; Visit Provider Ophthalmology
DX: H25.813 Combined forms of age-related cataract, bilateral (principal); H53.149 Visual discomfort, unspecified; E78.5 Hyperlipidemia, unspecified; I10 Essential (primary) hypertension; I25.10 Atherosclerotic heart disease of native coronary artery without angina pectoris; F32.9 Major depressive disorder, single episode, unspecified; R03.0 Elevated blood-pressure reading, without diagnosis of hypertension; Z79.82 Long term (current) use of aspirin; Z79.899 Other long term (current) drug therapy
CPT/HCPCS: 66984; V2632

== ENCOUNTER → 2021-03-20 17:09 | Outpatient (CLI) | payer MEDICARE, OTHER, SELFPAY ==
[2021-03-20 19:09] LABS: Basophils # 0.1 K/mm3 (0-0.2); Basophils % 0.9 % (0.1-2.0); Eosinophils # 0.2 K/mm3 (0.0-0.4); Hematocrit 40.9 % (37.0-47.0); Hemoglobin 13.3 g/dL (12.2-16.2); Lymphocytes # 1.2 K/mm3 (0.7-4.5); Lymphocytes % 23.5 % (10-50); Mean Corpuscular HGB Conc 32.5 g/dL (31.8-35.4); Mean Corpuscular Hemoglobin 31.1 pg (27.0-31.2); Mean Corpuscular Volume 95.9 fl (81-99); Mean Platelet Volume 11.5 fl (7.4-10.4); Monocytes # 0.3 K/mm3 (0.1-1.0); Monocytes % 6.7 % (1.7-9.3); Neutrophils # 3.3 K/mm3 (1.8-7.8); Neutrophils % 64.8 % (37.0-80.0); Platelet Count 117 K/mm3 (142-424); Red Blood Count 4.27 M/mm3 (4.20-5.40); Red Cell Distribution Width 12.8 % (11.5-17.5); White Blood Count 5.1 K/mm3 (4.8-10.8)
[2021-03-20 19:18] LABS: Alanine Aminotransferase 19 U/L (12-78); Albumin Level 3.7 g/dl (3.5-5.0); Albumin/Globulin Ratio 1.3 (1.1-1.8); Alkaline Phosphatase 101 U/L (38-126); Anion Gap 15.2 mEq/L (5-15); Aspartate Amino Transferase 30 U/L (14-36); Bilirubin,Total 0.2 mg/dl (0.2-1.3); Blood Urea Nitrogen 19 mg/dl (7-17); Calcium 8.9 mg/dl (8.4-10.2); Carbon Dioxide 25 mmol/L (22.0-30.0); Chloride 105 mmol/L (98-107); Chol/HDL Ratio 3.3 (1-3.5); Cholesterol 160 mg/dl (140-200); Estimated Glomerular Filt Rate 55 ml/min (>60); GFR (African American) 66 ML/MIN (>60); Globulin 2.9 g/dL (1.3-3.2); Glucose 81 mg/dl (74-100); HDL Cholesterol 48 mg/dl (40-60); Potassium 4.2 mmoL/L (3.5-5.1); Sodium 141 mmol/L (136-145); Total Protein,Serum 6.6 g/dl (6.3-8.2); Triglycerides 206 mg/dl (30-150); VLDL Cholesterol 41 mg/dL (0-40)
[2021-03-20 19:19] LABS: Amphetamine/Metha Screen,Urine Negative ng/ml (<1000); Barbiturates Screen,Urine Negative ng/ml (<200)
[2021-03-20 19:20] LABS: Benzodiazepines Screen,Urine Negative ng/ml (<200)
[2021-03-20 19:21] LABS: Cannabinoid Screen,Urine Negative ng/ml (<50); Cocaine Screen,Urine Negative ng/ml (<300)
[2021-03-20 19:22] LABS: Methadone Screen,Urine Negative ng/ml (<300); Opiate Screen,Urine Negative ng/ml (<300)
[2021-03-20 19:23] LABS: Phencyclidine Screen,Urine Negative ng/ml (<25)
[2021-03-20 19:29] LABS: Direct LDL Cholesterol 84.32 mg/dL (100-129)
[2021-03-20 19:36] LABS: 25-OH Vitamin D, Total 38.8 ng/mL (30-100)
[2021-03-20 19:37] LABS: T4 (Thyroxine) 6.4 ug/dl (5.53-11.0)
[2021-03-20 19:50] LABS: Thyroid Stimulating Hormone 1.93 uIU/mL (0.465-4.68)
[2021-03-20 20:22] LABS: Hemoglobin A1C 6.4 % (4.0-6.0)
== END ==
PROVIDERS: Visit Provider Emergency Medicine
DX: E78.5 Hyperlipidemia, unspecified (principal); G47.9 Sleep disorder, unspecified; I10 Essential (primary) hypertension; J44.9 Chronic obstructive pulmonary disease, unspecified; R60.9 Edema, unspecified; R73.03 Prediabetes; E55.9 Vitamin D deficiency, unspecified; I25.10 Atherosclerotic heart disease of native coronary artery without angina pectoris; R40.0 Somnolence; Z79.899 Other long term (current) drug therapy
CPT/HCPCS: 80053; 80061; 80305; 82306; 83036; 84436; 84443; 85025

== ENCOUNTER → 2021-04-24 10:01 | Outpatient (CLI) | payer MEDICARE, OTHER, SELFPAY ==
--- NOTE | 2021-04-24 10:04 | XR_ITS ---
PROCEDURE INFORMATION: Exam: XR Right Knee Exam date and time: 04/24/2021 10:04 AM Age: 71 years old Clinical indication: Pain; Knee; Right; Additional info: Bl knee pain TECHNIQUE: Imaging protocol: XR Right knee. Views: 4 or more views. COMPARISON: CR [id number] XR knee RT 4V 10/07/2017 11:43 AM FINDINGS: Bones/joints: Moderate degenerative changes within the medial compartment and the lateral compartment. Joint space narrowing with osteophytosis. severe patellofemoral degenerative changes. Soft tissues: Normal. IMPRESSION: 1. Moderate degenerative changes within the medial compartment and the lateral compartment. Joint space narrowing with osteophytosis. 2. Severe patellofemoral degenerative changes.
--- NOTE | 2021-04-24 10:04 | XR_ITS ---
PROCEDURE INFORMATION: Exam: XR Left Knee Exam date and time: 04/24/2021 10:04 AM Age: 71 years old Clinical indication: Pain; Knee; Left; Additional info: Bl knee pain TECHNIQUE: Imaging protocol: XR Left knee. Views: 4 or more views. COMPARISON: CR XR KNEE LT 4V 09/21/2019 2:34 PM FINDINGS: Bones/joints: Moderate degenerative changes within the medial compartment and to a lesser degree the lateral compartment. Joint space narrowing with osteophytosis. severe patellofemoral degenerative changes. Soft tissues: Normal. IMPRESSION: 1. Moderate degenerative changes within the medial compartment and to a lesser degree the lateral compartment. Joint space narrowing with osteophytosis. 2. Severe patellofemoral degenerative changes.
== END ==
PROVIDERS: PCP Emergency Medicine; Visit Provider Orthopaedic Surgery
DX: M25.561 Pain in right knee (principal); M25.562 Pain in left knee
CPT/HCPCS: 73564

== ENCOUNTER 2021-09-15 10:44 | Emergency (ER) | payer MEDICARE, OTHER, SELFPAY ==
[2021-09-15] VITALS (10 sets, daily range): BP systolic 103–126; BP diastolic 61–78; PULSE 65–89; RESP 12–24; TEMP 36.7; O2SAT 96–99; BMI 45.1
--- NOTE | 2021-09-15 10:44 | ECG_ITS ---
APPROVED REPORT Exam: Resting ECG HR:88 bpm ECG Measurements Heart Rate 88 AXES DC 163 P 60 QRSd 98 QRS -20 QT 294 T 62 QTc 339 Conclusion SINUS RHYTHM NONSPECIFIC T-WAVE ABNORMALITY BORDERLINE ECG UNCONFIRMED REPORT Electronically signed by : Chris Cool MD 09/16/2021 18:13:56
--- NOTE | 2021-09-15 10:59 | XR_ITS ---
FINAL REPORT CLINICAL HISTORY: Chest heaviness, SOA, cOPD COMPARISON: 05/25/2019 FINDINGS: SINGLE VIEW CHEST The heart is normal in size. The mediastinum is unremarkable. The lungs are clear. There is no pneumothorax. IMPRESSION: No acute cardiopulmonary process. Reviewed, Interpreted and Dictated by Mingo Evans MD Transcribed by Marlin Power Authenticated by Mingo Evans MD on 09/15/2021 11:49:19 AM [facility]
--- NOTE | 2021-09-15 11:00 | PC.NURSE ---
Notified Uli in Rad of CXR order
[2021-09-15 11:07] LABS: Basophils # 0.1 K/mm3 (0-0.2); Basophils % 1.2 % (0.1-2.0); Chloride 106 mmol/L (98-107); Eosinophils # 0.2 K/mm3 (0.0-0.4); Eosinophils % 3.8 % (0.1-12.0); Hematocrit 43.6 % (37.0-47.0); Hemoglobin 13.9 g/dL (12.2-16.2); Lymphocytes # 1.2 K/mm3 (0.7-4.5); Lymphocytes % 25.2 % (10-50); Mean Corpuscular HGB Conc 31.9 g/dL (31.8-35.4); Mean Corpuscular Hemoglobin 30.8 pg (27.0-31.2); Mean Corpuscular Volume 96.5 fl (81-99); Mean Platelet Volume 10.1 fl (7.4-10.4); Monocytes # 0.3 K/mm3 (0.1-1.0); Neutrophils # 2.9 K/mm3 (1.8-7.8); Neutrophils % 62.9 % (37.0-80.0); Platelet Count 129 K/mm3 (142-424); Red Blood Count 4.52 M/mm3 (4.20-5.40); White Blood Count 4.6 K/mm3 (4.8-10.8)
[2021-09-15 11:08] LABS: Potassium 3.9 mmoL/L (3.5-5.1); Sodium 138 mmol/L (136-145)
[2021-09-15 11:10] LABS: Blood Urea Nitrogen 17 mg/dl (7-17); Creatinine Clearance Estimated 48 mL/min (50-200); Estimated Glomerular Filt Rate 71 ml/min (>60); GFR (African American) 86 ML/MIN (>60)
[2021-09-15 11:11] LABS: Anion Gap 12.9 mEq/L (5-15); Carbon Dioxide 23 mmol/L (22.0-30.0); Glucose 121 mg/dl (74-100)
[2021-09-15 11:26] LABS: Troponin I < 0.01 ng/ml (0.00-0.034)
--- NOTE | 2021-09-15 13:21 | HMH.EDGENADL ---
ED Disposition Clinical Impression: COPD exacerbation Disposition: Home, Self-Care Condition on Discharge: Good Prescriptions: Azithromycin 1 gm PO DIRECTED #1 packet Transmission Status: Received by [facility] Referrals: Rafy Kiser MD [Primary Care Provider] - - Critical Care Critical Care Time: No Attestation: On 09/15/21, the high probability of a clinically significant, sudden or life threatening deterioration of the following system(s) required my full and direct attention, intervention and personal management. The time I documented below is in addition to time spent performing reported procedures but includes the following listed in this critical care notation. Medical Decision Making - Medical Records Medical records reviewed: Yes: I reviewed the patient's medical records. - Sumeet Inquiry Pt receiving controlled substance: No Sumeet was queried for this patient: No Vital Signs: 09/15/21 10:44 09/15/21 12:13 Temperature 98.1 F Temperature Source Oral Pulse Rate 70 Pulse Rate [Right Radial] 89 Respiratory Rate 21 Blood Pressure [Right Arm] 126/68 Blood Pressure Mean [Right Arm] 87 Blood Pressure Source [Right Arm] Automatic Cuff Blood Pressure Position [Right Arm] Sitting 02 Sat by Pulse Oximetry 99 Oxygen Delivery Method Room Air - Lab Data Lab Results 09/15/21 10:50: WBC 4.6 L, RBC 4.52, Hgb 13.9, Hct 43.6, MCV 96.5, MCH 30.8, MCHC 31.9, RDW 13.0, Plt Count 129 L, MPV 10.1, Neut % (Auto) 62.9, Lymph % (Auto) 25.2, Dent % (Auto) 7.0, Eos % (Auto) 3.8, Baso % (Auto) 1.2, Neut # (Auto) 2.9, Lymph # (Auto) 1.2, Dent # (Auto) 0.3, Eos # (Auto) 0.2, Baso # (Auto) 0.1 09/15/21 10:50: Sodium 138, Potassium 3.9, Chloride 106, Carbon Dioxide 23, Anion Gap 12.9, BUN 17, Creatinine 0.80, Estimated Creat Clear 48, Estimated GFR 71, Est GFR ( Amer) 86, Glucose 121 H, Calcium 9.0, Troponin I < 0.01 Result diagrams: 09/15/21 10:50 09/15/21 10:50 Orders (Tests/Meds): ED MEDICATIONS Generic Name Dose Route Start Last Admin Trade Name Freq PRN Reason Stop Dose Admin Sodium Chloride 10 ml 09/15/21 10:59 Sodium Chloride 0.9% 10ml Flush Syringe IV 10/15/21 10:58 NEEDED PRN Maintain IV Site Discontinued Medications Generic Name Dose Route Start Last Admin Trade Name Freq PRN Reason Stop Dose Admin Albuterol/Ipratropium 3 ml 09/15/21 11:59 09/15/21 12:12 Ipratropium/Albuterol 3 Ml Neb IH 09/15/21 12:00 3 ml ONCE ONE Administration Hydroxyzine Pamoate 50 mg 09/15/21 11:59 09/15/21 12:01 Hydroxyzine Pamoate 25mg Capsule PO 09/15/21 12:00 50 mg ONCE ONE Administration ORDERS Category Date Time Status Troponin I Q3H Lab 09/15/21 14:00 Ordered Troponin I Q3H Lab 09/15/21 17:00 Ordered - JOSE Score for Non-Stemi Age of Patient: 70-79 years old Heart Rate: 70-89 bpm Systolic Blood Pressure: 120-139 mmhg Serum Creatinine: 0.80-1.19 mg/dl CHF Killip Class: I-No CHF Other Risk Factors: None Non-Stemi Risk Score: 125 Medical Decision Narrative: Patient is a 71-year-old female presenting to the emergency department chief complaint of pain, chest pressure. Differential diagnosis the patient includes ACS, pneumothorax, COPD exacerbation, pneumonia, influenza others. Given this we will order CBC, CMP, chest x-ray, EKG, troponins. Patient does not have elevation in her initial troponin. Patient is also describing some mild weakness more on the left side, patient exhibiting no signs of an acute stroke, no dysarthria. Patient had some mild wheezing on examination, will give her a duo nebs. EKG normal sinus rhythm, patient was hemodynamically stable throughout the emergency department stay. CBC and CMP did not have any significant abnormalities, troponin was not elevated. Chest x-ray showed no signs of pneumonia or acute consolidation. When I reevaluated the patient, she had relief of symptoms, stated that
== END 2021-09-15 14:38 | disposition home or self-care (01) ==
PROVIDERS: Emergency Provider Emergency Medicine; PCP Emergency Medicine
DX: J44.1 Chronic obstructive pulmonary disease with (acute) exacerbation (principal); F41.8 Other specified anxiety disorders; E78.5 Hyperlipidemia, unspecified; I10 Essential (primary) hypertension; Z79.899 Other long term (current) drug therapy
CPT/HCPCS: 71045; 80048; 84484; 85025; 93005; 99283

== ENCOUNTER → 2022-04-08 13:45 | Outpatient (CLI) | payer MEDICARE, OTHER, SELFPAY ==
--- NOTE | 2022-04-08 13:46 | CA_ITS ---
APPROVED REPORT EXAM: Comprehensive 2D, Doppler, and color-flow Echocardiogram Cook Starch: DONNIE Sullivan, RVS Ht: 5 ft 6 in Wt: 260lbs BSA: 2.24 BP: 158/84 mmHg Indications: HILLIARD, COPD, HTN, HLD, Palpitations, Obesity Echo Enhancing Agent Comments: Poor acoustic windows throughout exam due to lung impedence/body habitus 2D Dimensions Aortic Root 2.95 cm LA Volume 47.50 mL Left Atrium 3.76 cm LA Volume Index 21.20 mL/m2 (M/F) 16-34 LVOT 1.92 cm (M/F) 1.5-2.5 Ascending Aorta 2.64 cm M-Mode Dimensions RVDd 2.09 cm (0.9-2.6) LA Diam 4.28 cm (1.9-4.0) LVDd 4.86 cm (3.5-5.7) Ao Diam 2.78 cm (2.0-3.7) LVDs 2.85 cm (3.5-5.7) IVSd 1.04 cm (0.6-1.1) PWd 0.96 cm (0.6-1.1) EF (Teich) 72.10% EPSs 0.57 cm FS 41.40% EDV (Teich) 110.70 mL TAPSE 3.06 (<1.7) ESV (Teich) 30.90 mL LV Diastology E Decel Time 193.00 (160-240 msec) E/A Ratio 0.91 MED E' 6.50 (< 7 cm/sec) MED A' 11.30 cm/s E'/MED E' Ratio 11.42 (>14) LAT E' 4.90 (<10 cm/sec) LAT A' 9.10 cm/s E/LAT E' Ratio 15.14 (>14) Aortic Valve LVOT Max 124.00 (70-110 cm/s) LVOT VTI 23.91 cm AoV Peak Antonio. 145.00 (50-130 cm/s) AO Peak GR. 8.40 mmHg AO Mean GR. 4.20 (<5 mmHg) AO VTI 27.16 (18-25 cm) KOLTON (VTI) 2.55 (2.5-4.5 cm2) Mitral Valve MV A Velocity 82.00 (40-130 cm/s) E/A Ratio 0.91 MV Decel. Time 193.00 (160-240 ms) MV PHT 57.00 ms Pulmonary Valve PV Peak Velocity 98.00 (50-150 cm/s) Tricuspid Valve TR P. Velocity 236.00 cm/s RAP Estimate 10.00 mmHg RVSP 32.20 mmHg Left Ventricle Technically difficult study because of the patient factors and poor acoustic windows. Left atrium is mildly enlarged, left ventricle is normal size, mild concentric left ventricular hypertrophy, estimated ejection fraction 55% with no regional wall motion abnormality, grade 1 diastolic dysfunction seen without tissue Doppler evidence of raise left atrial pressure. Right Ventricle Right atrium and right ventricle are normal size and contractility. Aortic Valve Aortic valve is minimally thickened and fibrosed there is no aortic stenosis or aortic insufficiency. Mitral Valve Mitral valve grossly normal, there is trace mitral regurgitation. Tricuspid Valve Tricuspid valve grossly normal, there is trace tricuspid regurgitation, tricuspid regurgitation jet velocity is inadequate for calculation of the right ventricular systolic pressure. Pulmonic Valve Pulmonic valve is poorly visualized Great Vessels Aortic root is normal size. Inferior vena cava is normal size with normal inspiratory collapse. Pericardium No significant pericardial effusion noted. Conclusion 1. Mildly enlarged left atrium, normal left ventricular size, mild concentric left ventricular hypertrophy, estimated ejection fraction 55% with no regional wall motion abnormality, grade 1 diastolic dysfunction seen without tissue Doppler evidence of raise left atrial pressure. 2. Trace mitral and tricuspid regurgitation. 3. No significant pericardial effusion noted. 4. Inferior vena cava is normal size with normal inspiratory collapse. Electronically signed by : Tom Snider MD 04/09/2022 12:36:23
== END ==
PROVIDERS: PCP Emergency Medicine; Visit Provider Physician Assistant
DX: I10 Essential (primary) hypertension (principal); J44.9 Chronic obstructive pulmonary disease, unspecified; R00.2 Palpitations; R06.00 Dyspnea, unspecified; R06.01 Orthopnea; R06.02 Shortness of breath
CPT/HCPCS: 93306

== ENCOUNTER 2022-04-28 13:22 | Emergency (ER) | payer MEDICARE, OTHER, SELFPAY ==
[2022-04-28] VITALS (8 sets, daily range): BP systolic 133–150; BP diastolic 75–91; PULSE 64–77; RESP 15–21; TEMP 36.9; O2SAT 95–98; BMI 41.9
--- NOTE | 2022-04-28 13:20 | ECG_ITS ---
APPROVED REPORT Exam: Resting ECG HR:78 bpm ECG Measurements Heart Rate 78 AXES RI 151 P 65 QRSd 98 QRS 8 QT 376 T 82 QTc 410 Conclusion SINUS RHYTHM NORMAL ECG UNCONFIRMED REPORT Electronically signed by : Chris Cool MD 04/30/2022 13:30:40
--- NOTE | 2022-04-28 13:49 | XR_ITS ---
FINAL REPORT CLINICAL HISTORY: SOA, CHEST PAIN COMPARISON: 09/15/2021 FINDINGS: SINGLE-VIEW CHEST There is cardiomegaly. The mediastinum is normal. The lungs are clear. There is no pneumothorax. IMPRESSION: No acute cardiopulmonary process. Reviewed, Interpreted and Dictated by Scot Munoz III, MD Transcribed by Marlin Power Authenticated and [facility]
[2022-04-28 14:11] LABS: Anion Gap 16.2 mEq/L (5-15); Basophils # 0.1 K/mm3 (0-0.2); Basophils % 0.9 % (0.1-2.0); Blood Urea Nitrogen 20 mg/dl (7-17); Carbon Dioxide 26 mmol/L (22.0-30.0); Chloride 100 mmol/L (98-107); Creatinine Clearance Estimated 48 mL/min (50-200); Eosinophils # 0.1 K/mm3 (0.0-0.4); Eosinophils % 2.1 % (0.1-12.0); Estimated Glomerular Filt Rate 62 ml/min (>60); GFR (African American) 74 ML/MIN (>60); Glucose 95 mg/dl (74-100); Hematocrit 42.6 % (37.0-47.0); Hemoglobin 13.8 g/dL (12.2-16.2); Lymphocytes # 1.3 K/mm3 (0.7-4.5); Lymphocytes % 21.8 % (10-50); Mean Corpuscular HGB Conc 32.3 g/dL (31.8-35.4); Mean Corpuscular Hemoglobin 29.5 pg (27.0-31.2); Mean Corpuscular Volume 91.2 fl (81-99); Mean Platelet Volume 11.1 fl (7.4-10.4); Monocytes # 0.5 K/mm3 (0.1-1.0); Neutrophils # 4.1 K/mm3 (1.8-7.8); Neutrophils % 67.2 % (37.0-80.0); Platelet Count 130 K/mm3 (142-424); Potassium 4.2 mmoL/L (3.5-5.1); Red Blood Count 4.67 M/mm3 (4.20-5.40); Red Cell Distribution Width 13.3 % (11.5-17.5); Sodium 138 mmol/L (136-145); White Blood Count 6.1 K/mm3 (4.8-10.8)
[2022-04-28 14:23] LABS: NT Pro Brain Natriuretic Pep. 72.8 pg/mL (0-125)
[2022-04-28 14:33] LABS: Troponin I < 0.01 ng/ml (0.00-0.034)
--- NOTE | 2022-04-28 14:44 | HMH.EDGENADL ---
Discharge Plan Disposition Patient Disposition: Home, Self-Care Condition: Good Prescriptions Prescriptions: No Action aspirin 81 mg tablet,delayed release (DR/EC) 81 mg PO DAILY Qty: 90 0RF gabapentin 800 mg tablet 800 mg PO QID Qty: 120 2RF ipratropium-albuterol 0.5 mg-3 mg(2.5 mg base)/3 mL solution for nebulization 3 ml INHALATION Q4-6H PRN (Reason: shortness of breath or wheezing) Qty: 180 0RF furosemide 40 mg tablet See Rx Instructions .ROUTE .COMPLEX Qty: 30 5RF Dose Instruction: TAKE ONE TABLET BY MOUTH ONCE A DAY Rx Instructions: TAKE ONE TABLET BY MOUTH ONCE A DAY cetirizine 10 mg tablet See Rx Instructions .ROUTE .COMPLEX Qty: 30 0RF Dose Instruction: TAKE ONE TABLET BY MOUTH ONCE A DAY Rx Instructions: TAKE ONE TABLET BY MOUTH ONCE A DAY atorvastatin 40 mg tablet See Rx Instructions .ROUTE .COMPLEX Qty: 30 2RF Dose Instruction: TAKE ONE TABLET BY MOUTH ONCE A DAY FOR CHOLESTEROL Rx Instructions: TAKE ONE TABLET BY MOUTH ONCE A DAY FOR CHOLESTEROL buspirone 10 mg tablet See Rx Instructions .ROUTE .COMPLEX Qty: 90 2RF Dose Instruction: TAKE ONE TABLET BY MOUTH 3 TIMES A DAY FOR ANXIETY Rx Instructions: TAKE ONE TABLET BY MOUTH 3 TIMES A DAY FOR ANXIETY lisinopril 20 mg tablet See Rx Instructions .ROUTE .COMPLEX Qty: 30 2RF Dose Instruction: TAKE ONE TABLET BY MOUTH ONCE A DAY FOR HYPERTENSION Rx Instructions: TAKE ONE TABLET BY MOUTH ONCE A DAY FOR HYPERTENSION venlafaxine 37.5 mg tablet See Rx Instructions .ROUTE .COMPLEX Qty: 60 2RF Dose Instruction: TAKE ONE TABLET BY MOUTH 2 TIMES A DAY FOR DEPRESSION Rx Instructions: TAKE ONE TABLET BY MOUTH 2 TIMES A DAY FOR DEPRESSION spironolactone 25 mg tablet See Rx Instructions .ROUTE .COMPLEX Qty: 60 2RF Dose Instruction: TAKE ONE TABLET BY MOUTH 2 TIMES A DAY FOR DIURETIC Rx Instructions: TAKE ONE TABLET BY MOUTH 2 TIMES A DAY FOR DIURETIC albuterol sulfate 90 mcg/actuation HFA aerosol inhaler See Rx Instructions .ROUTE .COMPLEX Qty: 8.5 2RF Dose Instruction: INHALE 2 PUFFS BY MOUTH EVERY 6 HOURS NEEDED FOR SHORTNESS OF BREATH Rx Instructions: INHALE 2 PUFFS BY MOUTH EVERY 6 HOURS NEEDED FOR SHORTNESS OF BREATH hydroxyzine pamoate 25 mg capsule See Rx Instructions .ROUTE .COMPLEX Qty: 30 2RF Dose Instruction: TAKE ONE CAPSULE BY MOUTH AT BEDTIME Rx Instructions: TAKE ONE CAPSULE BY MOUTH AT BEDTIME verapamil 80 mg tablet See Rx Instructions .ROUTE .COMPLEX Qty: 90 2RF Dose Instruction: TAKE ONE TABLET BY MOUTH 3 TIMES A DAY FOR HIGH BLOOD PRESSURE Rx Instructions: TAKE ONE TABLET BY MOUTH 3 TIMES A DAY FOR HIGH BLOOD PRESSURE escitalopram oxalate 20 mg tablet See Rx Instructions .ROUTE .COMPLEX Qty: 30 2RF Dose Instruction: TAKE ONE TABLET BY MOUTH ONCE A DAY Rx Instructions: TAKE ONE TABLET BY MOUTH ONCE A DAY omeprazole 20 mg capsule,delayed release(DR/EC) See Rx Instructions .ROUTE .COMPLEX Qty: 30 2RF Dose Instruction: TAKE ONE CAPSULE BY MOUTH ONCE A DAY NEEDED FOR GERD Rx Instructions: TAKE ONE CAPSULE BY MOUTH ONCE A DAY NEEDED FOR GERD Anoro Ellipta 62.5-25 mcg/actuation blister with device See Rx Instructions .ROUTE .COMPLEX Qty: 60 2RF Dose Instruction: INHALE 1 PUFF BY MOUTH ONCE A DAY FOR ASTHMA Rx Instructions: INHALE 1 PUFF BY MOUTH ONCE A DAY FOR ASTHMA trazodone 100 mg tablet 100 mg PO HS PRN (Reason: insomnia) Qty: 90 0RF Activity Restrictions/Add. Instructions Additional Instructions/Restrictions: You were evaluated in the emergency department today. Please follow-up with your primary care provider over the next 48 hours. Return to the emergency department for any new or worsening symptoms. Continue using her medications at home as prescribed. Clinical Impressions Cl
[2022-04-28 17:52] LABS: Troponin I < 0.01 ng/ml (0.00-0.034)
== END 2022-04-28 19:01 | disposition home or self-care (01) ==
PROVIDERS: Emergency Provider Emergency Medicine; PCP Emergency Medicine
DX: R07.9 Chest pain, unspecified (principal); R61 Generalized hyperhidrosis; R50.9 Fever, unspecified; R05.9 Cough, unspecified; I25.10 Atherosclerotic heart disease of native coronary artery without angina pectoris; G89.29 Other chronic pain; R40.0 Somnolence; J44.9 Chronic obstructive pulmonary disease, unspecified; E66.9 Obesity, unspecified; F41.9 Anxiety disorder, unspecified; Z79.51 Long term (current) use of inhaled steroids; Z79.52 Long term (current) use of systemic steroids; Z79.82 Long term (current) use of aspirin; Z79.899 Other long term (current) drug therapy; Z95.5 Presence of coronary angioplasty implant and graft; Z68.41 Body mass index [BMI] 40.0-44.9, adult; Z82.49 Family history of ischemic heart disease and other diseases of the circulatory system; Z83.3 Family history of diabetes mellitus; Z82.5 Family history of asthma and other chronic lower respiratory diseases
CPT/HCPCS: 36415; 71045; 80048; 83880; 84484; 85025; 93005; 99284

== ENCOUNTER 2022-05-02 13:04 | Emergency (ER) | payer MEDICARE, OTHER, SELFPAY ==
[2022-05-02] VITALS (9 sets, daily range): BP systolic 111–129; BP diastolic 62–71; PULSE 64–73; RESP 18–20; TEMP 36.6; O2SAT 96–98; BMI 41.9
--- NOTE | 2022-05-02 13:01 | ECG_ITS ---
APPROVED REPORT Exam: Resting ECG HR:78 bpm ECG Measurements Heart Rate 78 AXES MA 150 P 57 QRSd 94 QRS -12 QT 381 T 70 QTc 415 Conclusion SINUS RHYTHM WITH OCCASIONAL VENTRICULAR PREMATURE COMPLEXES BORDERLINE ECG UNCONFIRMED REPORT Electronically signed by : Chris Cool MD 05/04/2022 18:10:04
--- NOTE | 2022-05-02 13:06 | XR_ITS ---
PROCEDURE INFORMATION: Exam: XR Chest Exam date and time: 05/02/2022 1:12 PM Age: 72 years old Clinical indication: Pain; Chest pressure; Additional info: Chest pain TECHNIQUE: Imaging protocol: Radiologic exam of the chest. Views: 2 views. COMPARISON: CR XR CHEST PORTABLE 04/28/2022 2:03 PM FINDINGS: Lungs: Unremarkable. No consolidation. Pleural spaces: Unremarkable. No pleural effusion. No pneumothorax. Heart/Mediastinum: Cardiomegaly. Bones/joints: Thoracic spondylosis. IMPRESSION: No evidence of acute cardiopulmonary disease.
[2022-05-02 13:19] LABS: Coronavirus 19, PCR Not Detected (NotDetected); Influenza A, PCR Not Detected (NotDetected); Influenza B, PCR Not Detected (NotDetected)
[2022-05-02 13:22] LABS: Chloride 103 mmol/L (98-107); Sodium 138 mmol/L (136-145)
[2022-05-02 13:23] LABS: Potassium 4.2 mmoL/L (3.5-5.1)
[2022-05-02 13:24] LABS: Basophils # 0.1 K/mm3 (0-0.2); Basophils % 1.1 % (0.1-2.0); Eosinophils # 0.1 K/mm3 (0.0-0.4); Eosinophils % 1.8 % (0.1-12.0); Hematocrit 43.2 % (37.0-47.0); Hemoglobin 13.7 g/dL (12.2-16.2); Lymphocytes # 1.2 K/mm3 (0.7-4.5); Mean Corpuscular HGB Conc 31.7 g/dL (31.8-35.4); Mean Corpuscular Volume 94.7 fl (81-99); Mean Platelet Volume 10.1 fl (7.4-10.4); Monocytes # 0.4 K/mm3 (0.1-1.0); Monocytes % 7.4 % (1.7-9.3); Neutrophils # 3.3 K/mm3 (1.8-7.8); Neutrophils % 65.7 % (37.0-80.0); Platelet Count 120 K/mm3 (142-424); Red Blood Count 4.56 M/mm3 (4.20-5.40); Red Cell Distribution Width 13.2 % (11.5-17.5); White Blood Count 5.1 K/mm3 (4.8-10.8)
[2022-05-02 13:25] LABS: Alanine Aminotransferase 24 U/L (12-78); Albumin Level 4.3 g/dl (3.5-5.0); Albumin/Globulin Ratio 1.4 (1.1-1.8); Alkaline Phosphatase 117 U/L (38-126); Anion Gap 14.2 mEq/L (5-15); Aspartate Amino Transferase 44 U/L (14-36); Bilirubin,Total 0.4 mg/dl (0.2-1.3); Blood Urea Nitrogen 15 mg/dl (7-17); Carbon Dioxide 25 mmol/L (22.0-30.0); Creatinine Clearance Estimated 48 mL/min (50-200); Estimated Glomerular Filt Rate 62 ml/min (>60); GFR (African American) 74 ML/MIN (>60); Total Protein,Serum 7.3 g/dl (6.3-8.2)
[2022-05-02 13:26] LABS: Calcium 9.9 mg/dl (8.4-10.2); Glucose 109 mg/dl (74-100)
--- NOTE | 2022-05-02 13:26 | PC.NURSE ---
pt to rad
[2022-05-02 13:45] LABS: Troponin I < 0.01 ng/ml (0.00-0.034)
--- NOTE | 2022-05-02 14:04 | HMH.EDGENADL ---
Discharge Plan Disposition Patient Disposition: Home, Self-Care Condition: Fair Prescriptions Prescriptions: New prednisone 20 mg tablet 40 mg PO DAILY 5 Days Qty: 10 0RF azithromycin 250 mg tablet See Rx Instructions .ROUTE .COMPLEX Qty: 6 0RF Rx Instructions: For 250 mg dose pack: take 500 mg today (day 1), then 250 mg for 4 days (days 2-5) No Action aspirin 81 mg tablet,delayed release (DR/EC) 81 mg PO DAILY Qty: 90 0RF gabapentin 800 mg tablet 800 mg PO QID Qty: 120 2RF ipratropium-albuterol 0.5 mg-3 mg(2.5 mg base)/3 mL solution for nebulization 3 ml INHALATION Q4-6H PRN (Reason: shortness of breath or wheezing) Qty: 180 0RF furosemide 40 mg tablet See Rx Instructions .ROUTE .COMPLEX Qty: 30 5RF Dose Instruction: TAKE ONE TABLET BY MOUTH ONCE A DAY Rx Instructions: TAKE ONE TABLET BY MOUTH ONCE A DAY cetirizine 10 mg tablet See Rx Instructions .ROUTE .COMPLEX Qty: 30 0RF Dose Instruction: TAKE ONE TABLET BY MOUTH ONCE A DAY Rx Instructions: TAKE ONE TABLET BY MOUTH ONCE A DAY atorvastatin 40 mg tablet See Rx Instructions .ROUTE .COMPLEX Qty: 30 2RF Dose Instruction: TAKE ONE TABLET BY MOUTH ONCE A DAY FOR CHOLESTEROL Rx Instructions: TAKE ONE TABLET BY MOUTH ONCE A DAY FOR CHOLESTEROL buspirone 10 mg tablet See Rx Instructions .ROUTE .COMPLEX Qty: 90 2RF Dose Instruction: TAKE ONE TABLET BY MOUTH 3 TIMES A DAY FOR ANXIETY Rx Instructions: TAKE ONE TABLET BY MOUTH 3 TIMES A DAY FOR ANXIETY lisinopril 20 mg tablet See Rx Instructions .ROUTE .COMPLEX Qty: 30 2RF Dose Instruction: TAKE ONE TABLET BY MOUTH ONCE A DAY FOR HYPERTENSION Rx Instructions: TAKE ONE TABLET BY MOUTH ONCE A DAY FOR HYPERTENSION venlafaxine 37.5 mg tablet See Rx Instructions .ROUTE .COMPLEX Qty: 60 2RF Dose Instruction: TAKE ONE TABLET BY MOUTH 2 TIMES A DAY FOR DEPRESSION Rx Instructions: TAKE ONE TABLET BY MOUTH 2 TIMES A DAY FOR DEPRESSION spironolactone 25 mg tablet See Rx Instructions .ROUTE .COMPLEX Qty: 60 2RF Dose Instruction: TAKE ONE TABLET BY MOUTH 2 TIMES A DAY FOR DIURETIC Rx Instructions: TAKE ONE TABLET BY MOUTH 2 TIMES A DAY FOR DIURETIC albuterol sulfate 90 mcg/actuation HFA aerosol inhaler See Rx Instructions .ROUTE .COMPLEX Qty: 8.5 2RF Dose Instruction: INHALE 2 PUFFS BY MOUTH EVERY 6 HOURS NEEDED FOR SHORTNESS OF BREATH Rx Instructions: INHALE 2 PUFFS BY MOUTH EVERY 6 HOURS NEEDED FOR SHORTNESS OF BREATH hydroxyzine pamoate 25 mg capsule See Rx Instructions .ROUTE .COMPLEX Qty: 30 2RF Dose Instruction: TAKE ONE CAPSULE BY MOUTH AT BEDTIME Rx Instructions: TAKE ONE CAPSULE BY MOUTH AT BEDTIME verapamil 80 mg tablet See Rx Instructions .ROUTE .COMPLEX Qty: 90 2RF Dose Instruction: TAKE ONE TABLET BY MOUTH 3 TIMES A DAY FOR HIGH BLOOD PRESSURE Rx Instructions: TAKE ONE TABLET BY MOUTH 3 TIMES A DAY FOR HIGH BLOOD PRESSURE escitalopram oxalate 20 mg tablet See Rx Instructions .ROUTE .COMPLEX Qty: 30 2RF Dose Instruction: TAKE ONE TABLET BY MOUTH ONCE A DAY Rx Instructions: TAKE ONE TABLET BY MOUTH ONCE A DAY omeprazole 20 mg capsule,delayed release(DR/EC) See Rx Instructions .ROUTE .COMPLEX Qty: 30 2RF Dose Instruction: TAKE ONE CAPSULE BY MOUTH ONCE A DAY NEEDED FOR GERD Rx Instructions: TAKE ONE CAPSULE BY MOUTH ONCE A DAY NEEDED FOR GERD Anoro Ellipta 62.5-25 mcg/actuation blister with device See Rx Instructions .ROUTE .COMPLEX Qty: 60 2RF Dose Instruction: INHALE 1 PUFF BY MOUTH ONCE A DAY FOR ASTHMA Rx Instructions: INHALE 1 PUFF BY MOUTH ONCE A DAY FOR ASTHMA trazodone 100 mg tablet 100 mg PO HS PRN (Reason: insomnia) Qty: 90 0RF Referrals Follow up/Referrals: Rafy Kiser MD [Primary Care Provider] - See instructions
[2022-05-02 16:47] LABS: Troponin I < 0.01 ng/ml (0.00-0.034)
== END 2022-05-02 17:25 | disposition home or self-care (01) ==
PROVIDERS: Emergency Provider Student in an Organized Health Care Education/Training Program; PCP Emergency Medicine
DX: J44.1 Chronic obstructive pulmonary disease with (acute) exacerbation (principal); R07.2 Precordial pain; E78.5 Hyperlipidemia, unspecified; R50.9 Fever, unspecified; Z20.822 Contact with and (suspected) exposure to COVID-19; I10 Essential (primary) hypertension; I25.10 Atherosclerotic heart disease of native coronary artery without angina pectoris; F32.A Depression, unspecified; F41.9 Anxiety disorder, unspecified; Z79.51 Long term (current) use of inhaled steroids; Z79.52 Long term (current) use of systemic steroids; Z79.82 Long term (current) use of aspirin; Z79.899 Other long term (current) drug therapy; Z82.49 Family history of ischemic heart disease and other diseases of the circulatory system; Z82.5 Family history of asthma and other chronic lower respiratory diseases; Z83.3 Family history of diabetes mellitus
CPT/HCPCS: 36415; 71046; 80053; 84484; 85025; 93005; 96372; 96374; 99284; C9803; U0003; U0005

== ENCOUNTER → 2022-06-02 14:21 | Outpatient (CLI) | payer MEDICARE, OTHER, SELFPAY ==
--- NOTE | 2022-06-02 14:21 | CT_ITS ---
FINAL REPORT CLINICAL HISTORY: SOB FINDINGS: Axial images were obtained from the lung apex to the mid abdomen by computed tomography. Coronal reformatted images were obtained. This study was performed with techniques to keep radiation doses as low as reasonably achievable, (ALARA). Individualized dose reduction techniques using automated exposure control or adjustment of mA and/or kV according to the patient's size were employed. There is no axillary adenopathy. There is no hilar or mediastinal adenopathy. Heart size is normal. There is a small pericardial effusion. There is no pleural effusion. Limited images of the upper abdomen demonstrate a moderate hiatal hernia. 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 No suspicious infiltrate or nodule is identified. There are mild areas of scarring. IMPRESSION: No suspicious infiltrate or nodule. Small pericardial effusion. Moderate hiatal hernia. Reviewed, Interpreted and Dictated by Scot Munoz III, MD Transcribed by Weston Trotter Authenticated and . [facility]
[2022-06-02 15:30] VITALS: PULSE 70; PULSE 76
== END ==
PROVIDERS: PCP Emergency Medicine; Visit Provider Internal Medicine Pulmonary Disease
DX: R93.89 Abnormal findings on diagnostic imaging of other specified body structures (principal); R06.09 Other forms of dyspnea
CPT/HCPCS: 71250; 94060; 94618; 94640; 94727; 94729; 94762

== ENCOUNTER → 2022-07-09 08:32 | Outpatient (CLI) | payer MEDICARE, OTHER, SELFPAY ==
--- NOTE | 2022-07-09 08:41 | FL_ITS ---
FINAL REPORT CLINICAL HISTORY: dysphagia, pain, heart burn fluoro time: .40 FINDINGS: ESOPHAGRAM HISTORY: Abdominal pain, nausea. PROCEDURE: The patient ingested barium. Effervescent crystals were also administered. Spot and overhead films were obtained. FINDINGS: The esophagus is normal. There is a small to moderate hiatal hernia. There is Marked gastroesophageal reflux to the proximal third of the esophagus. A 13 mm barium tablet was administered which passed through the entirety of the esophagus without delay. Peristalsis is normal. IMPRESSION: Hiatal hernia with marked gastroesophageal reflux. No evidence of stricture. fluoroscopy time: 0.4 minutes Films reviewed , interpreted and dictated by Dr. Munoz Transcribed by Adal Dangelo PA-C. Reviewed, Interpreted and Dictated by Scot Munoz III, MD Transcribed by JENN Jaramillo Authenticated and [facility]
== END ==
PROVIDERS: PCP Emergency Medicine; Visit Provider Surgery
DX: R13.10 Dysphagia, unspecified (principal)
CPT/HCPCS: 74220

== ENCOUNTER 2022-07-30 07:08 | Day surgery (SDC) | payer MEDICARE, OTHER, SELFPAY ==
[2022-07-27 14:33] VITALS: BMI 41.9
[2022-07-30 07:28] VITALS: BP 130/71; PULSE 86; RESP 18; TEMP 36.6; O2SAT 95
--- NOTE | 2022-07-30 08:02 | P.PN_ITS ---
[facility] Disclaimer: The information contained in this section may have been updated after the patient was seen, as this information can be updated by other users. 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 Anesthesia Checklist Patient Identification Patient Identification: Arm Band and Verbal (Name & ) Structural Data Admitted From: Home Planned Operative Procedure/s: EGD Consent for Planned Operative Procedure(s) Verified: Yes Verified Documents: Surgical Consent NPO Status Verified Time NPO: 19:00 Airway Assessment C-Spine Mobility Assessed: Yes TMJ Mobility Assessed: Yes Dentition: Poor Dentition Neurological Assessment Level of Consciousness: Awake, Alert and Appropriate Anesthesia Plan ASA Class: III Anesthesia Type: MAC
[2022-07-30 08:04] VITALS: O2SAT 95
--- NOTE | 2022-07-30 08:22 | HMH.SCOPE ---
Procedure: Date: 07/30/22 Patient Date of :: 1950 Procedure Performed:: Esophagogastroduodenoscopy with biopsies Indications:: Patient presents for upper endoscopy.? She is a 72-year-old female with history of COPD, coronary artery disease with apparent previous coronary stenting, atypical chest pain, hypertension.? Primary care provider is Dr. Kiser.? She was apparently referred by cardiology for possible upper endoscopy.? She is somewhat of a poor historian.? She has a longstanding history of upper GI symptomatology.? She describes symptoms occurring for a long time .? She describes when she lays down at night she has some substernal burning.? She also has some difficulty swallowing.? She states that I have a high hernia .? She feels that this is causing a multitude of problems with her chest pain and difficulty swallowing.? She does state that she had previously had a scope done and had her esophagus tube stretched apparently.? Review of the record reveals that she had an upper endoscopy by Dr. Fuentes in 2013 and this revealed esophageal dysmotility, medium sized hiatal hernia, esophageal diverticulum.? Patient is currently on omeprazole and states that it ain't no good. ? Dr. Mcneil had ordered a barium swallow in 2016 and this revealed degenerative disc disease, epiphrenic diverticulum, small hiatal hernia with marked radiographic reflux.? Patient states that years ago she had a stomach tumor removed surgically in [place] but she does not know the details.? After my initial evaluation I informed her that upper endoscopy would not be a treatment for reflux or hiatal hernia but diagnostic measure.? Given prior endoscopic findings and prior barium swallow I ordered a repeat barium swallow.? This revealed findings of hiatal hernia with marked gastroesophageal reflux and no evidence of any stricture.? There is no mention of any diverticulum. Performing Provider:: Scot Gallagher MD Referring Provider:: Charlie Kiser Sedation:: MAC sedation Procedure:: Patient was taken to endoscopy procedure room. She was positioned in lateral decubitus position. Adequate intravenous sedation was achieved with anesthesia titration of propofol. Olympus endoscope was inserted via the oropharynx. Esophagus was cannulated. There were findings suggestive of esophageal dysmotility. Gastroesophageal junction was encountered at 35 cm. Stomach was cannulated and insufflated. There is some diffuse gastropathy. Attempt was made to insufflate the stomach but this proved somewhat difficult as she had persistent belching of gas. Therefore the hiatal hernia was difficult to evaluate regarding size but this appeared to be moderate to moderately large. Pylorus was traversed. Duodenum appeared normal. Gastric antral mucosal biopsies obtained for CLOtest for H. pylori. Additional gastric mucosal biopsies obtained for histopathologic analysis. Several biopsies were obtained at the gastroesophageal junction to evaluate for potential Kelley's esophagus. Stomach was desufflated and the endoscope was withdrawn. Findings:: Findings suggestive of esophageal dysmotility Gastroesophageal junction at 35 cm Probable moderate to moderately large sliding hiatal hernia Diffuse nonerosive gastropathy Recommendations:: Follow-up on histopathology. Much of her symptoms may be secondary to hiatal hernia. Complications:: None immediately apparent Estimated blood obtained (mL): 3
[2022-07-30 08:25] VITALS: BP 94/49; PULSE 72; RESP 17; TEMP 36.2; O2SAT 91
[2022-07-30 08:35] VITALS: BP 105/50; PULSE 74; RESP 16; O2SAT 92
[2022-07-30 08:45] VITALS: BP 122/65; PULSE 75; RESP 16; O2SAT 93
[2022-07-30 08:55] VITALS: BP 109/65; PULSE 69; RESP 18; O2SAT 94
== END 2022-07-30 08:55 | disposition home or self-care (01) ==
PROVIDERS: PCP Emergency Medicine; Visit Provider Surgery
PROC: 0DJ08ZZ Inspection of Upper Intestinal Tract, Via Natural or Artificial Opening Endoscopic (ICD-10-PCS; CPT 43235; principal; 2022-07-30 07:30)
DX: K21.9 Gastro-esophageal reflux disease without esophagitis (principal); K31.9 Disease of stomach and duodenum, unspecified; Z72.0 Tobacco use
CPT/HCPCS: 43239; 71045; 80053; 83605; 84484; 85007; 85025; 87040; 87339; 88305; 93005

== ENCOUNTER 2022-07-30 15:47 | Emergency (ER) | payer MEDICARE, OTHER, SELFPAY ==
--- NOTE | 2022-07-30 15:47 | ECG_ITS ---
APPROVED REPORT Exam: Resting ECG HR:98 bpm ECG Measurements Heart Rate 98 AXES IA 126 P 34 QRSd 89 QRS 8 QT 332 T 57 QTc 387 Conclusion SINUS RHYTHM INDETERMINATE AXIS NORMAL ECG UNCONFIRMED REPORT Electronically signed by : Chris Cool MD 07/30/2022 20:53:07
--- NOTE | 2022-07-30 15:52 | XR_ITS ---
FINAL REPORT CLINICAL HISTORY: chest pain COMPARISON: 05/02/2022 FINDINGS: SINGLE-VIEW CHEST There is cardiomegaly. The mediastinum is normal. The lungs are clear. There is no pneumothorax. IMPRESSION: No acute cardiopulmonary process. Reviewed, Interpreted and Dictated by Scot Munoz III, MD Transcribed by Marlin Power Authenticated and [facility]
[2022-07-30 16:00] VITALS: BP 172/81; PULSE 106; RESP 20; O2SAT 93; BMI 39.1
[2022-07-30 16:07] LABS: Basophils # 0.1 K/mm3 (0-0.2); Basophils % 0.5 % (0.1-2.0); Eosinophils # 0.1 K/mm3 (0.0-0.4); Eosinophils % 0.4 % (0.1-12.0); Hematocrit 44.7 % (37.0-47.0); Hemoglobin 14.3 g/dL (12.2-16.2); Lymphocytes # 0.7 K/mm3 (0.7-4.5); Lymphocytes % 5.9 % (10-50); Mean Corpuscular HGB Conc 32.1 g/dL (31.8-35.4); Mean Corpuscular Hemoglobin 29.5 pg (27.0-31.2); Mean Corpuscular Volume 92.2 fl (81-99); Mean Platelet Volume 9.4 fl (7.4-10.4); Monocytes # 0.5 K/mm3 (0.1-1.0); Monocytes % 4.2 % (1.7-9.3); Neutrophils # 10.1 K/mm3 (1.8-7.8); Neutrophils % 88.9 % (37.0-80.0); Platelet Count 139 K/mm3 (142-424); Red Blood Count 4.85 M/mm3 (4.20-5.40); Red Cell Distribution Width 13.1 % (11.5-17.5); White Blood Count 11.4 K/mm3 (4.8-10.8)
[2022-07-30 16:09] LABS: MANUAL DIFFERENTIAL MANUAL DIFFERENTIAL (MANUAL DIFF)
[2022-07-30 16:18] LABS: Alanine Aminotransferase 33 U/L (12-78); Albumin Level 4.4 g/dl (3.5-5.0); Albumin/Globulin Ratio 1.4 (1.1-1.8); Alkaline Phosphatase 117 U/L (38-126); Anion Gap 11.7 mEq/L (5-15); Aspartate Amino Transferase 36 U/L (14-36); Bilirubin,Total 0.4 mg/dl (0.2-1.3); Blood Urea Nitrogen 14 mg/dl (7-17); Calcium 9.3 mg/dl (8.4-10.2); Carbon Dioxide 27 mmol/L (22.0-30.0); Chloride 104 mmol/L (98-107); Estimated Glomerular Filt Rate 62 ml/min (>60); GFR (African American) 74 ML/MIN (>60); Globulin 3.1 g/dL (1.3-3.2); Glucose 150 mg/dl (74-100); Potassium 3.7 mmoL/L (3.5-5.1); Sodium 139 mmol/L (136-145); Total Protein,Serum 7.5 g/dl (6.3-8.2)
--- NOTE | 2022-07-30 16:20 | HMH.EDGENADL ---
Discharge Plan Disposition Patient Disposition: Home, Self-Care Prescriptions Prescriptions: No Action aspirin 81 mg tablet,delayed release (DR/EC) 81 mg PO DAILY Qty: 90 0RF ipratropium-albuterol 0.5 mg-3 mg(2.5 mg base)/3 mL solution for nebulization 3 ml INHALATION Q4-6H PRN (Reason: shortness of breath or wheezing) Qty: 180 0RF gabapentin 800 mg tablet 800 mg PO QID Qty: 120 2RF furosemide 40 mg tablet See Rx Instructions .ROUTE .COMPLEX Rx Instructions: TAKE ONE TABLET BY MOUTH ONCE A DAY atorvastatin 40 mg tablet See Rx Instructions .ROUTE .COMPLEX Rx Instructions: TAKE ONE TABLET BY MOUTH ONCE A DAY FOR CHOLESTEROL cetirizine 10 mg tablet See Rx Instructions .ROUTE .COMPLEX Rx Instructions: TAKE ONE TABLET BY MOUTH ONCE A DAY lisinopril 20 mg tablet See Rx Instructions .ROUTE .COMPLEX Rx Instructions: TAKE ONE TABLET BY MOUTH ONCE A DAY FOR HYPERTENSION spironolactone 25 mg tablet 25 mg PO BID trazodone 100 mg tablet See Rx Instructions .ROUTE .COMPLEX Rx Instructions: TAKE ONE TABLET BY MOUTH AT BEDTIME NEEDED FOR INSOMNIA venlafaxine 37.5 mg tablet See Rx Instructions .ROUTE .COMPLEX Rx Instructions: TAKE ONE TABLET BY MOUTH 2 TIMES A DAY FOR DEPRESSION buspirone 10 mg tablet See Rx Instructions .ROUTE .COMPLEX Rx Instructions: TAKE ONE TABLET BY MOUTH 3 TIMES A DAY FOR ANXIETY omeprazole 20 mg capsule,delayed release(DR/EC) See Rx Instructions .ROUTE .COMPLEX Rx Instructions: TAKE ONE CAPSULE BY MOUTH ONCE A DAY NEEDED FOR GERD verapamil 80 mg tablet See Rx Instructions .ROUTE .COMPLEX Rx Instructions: TAKE ONE TABLET BY MOUTH 3 TIMES A DAY FOR HIGH BLOOD PRESSURE albuterol sulfate 90 mcg/actuation HFA aerosol inhaler See Rx Instructions .ROUTE .COMPLEX Rx Instructions: INHALE 2 PUFFS BY MOUTH EVERY 6 HOURS NEEDED FOR SHORTNESS OF BREATH hydroxyzine pamoate 25 mg capsule See Rx Instructions .ROUTE .COMPLEX Rx Instructions: TAKE ONE CAPSULE BY MOUTH AT BEDTIME escitalopram oxalate 20 mg tablet See Rx Instructions .ROUTE .COMPLEX Rx Instructions: TAKE ONE TABLET BY MOUTH ONCE A DAY budesonide-formoterol [Symbicort] 160-4.5 mcg/actuation HFA aerosol inhaler 2 puff inhalation BID Referrals Follow up/Referrals: Rafy Kiser MD [Primary Care Provider] - See instructions Activity Restrictions/Add. Instructions Additional Instructions/Restrictions: Your chest discomfort and throat discomfort today was relieved with a GI cocktail. Given the fact that your EKG your blood test and your chest x-ray were unremarkable this is most likely secondary to recent instrumentation from being intubated and having an endoscopy. There is no evidence of any acute perforation. Please return to the emergency department with any worsening symptoms. Your symptoms should improve over time as the superficial mucosal inflammation from the surgical procedures improve. Please follow-up with your surgeon and your primary care doctor as needed Clinical Impressions Clinical Impression: Atypical chest pain Discharge ED Provider: Chet Treadwell General Adult HPI General Chief complaint: Shortness of Breath/Dyspnea Stated complaint: chest pain Time Seen by Provider: 07/30/22 16:20 History of Present Illness HPI narrative: Patient is a 72-year-old female who presents today status post an EGD here at [facility] Dr. Gallagher. Patient states that she felt fine prior to the procedure however following the procedure she complains of bilateral neck pain left upper extremity pain and chest pain. She states that this is worsened with any type of swallowing and that her mouth feels dry. She also is very anxious secondary to this and deals with chronic anxiety. She denies any exertional symptoms denies any fevers. Denies being told any co
[2022-07-30 16:24] LABS: Lactic Acid 1.9 mmol/L (0.7-2.1)
[2022-07-30 16:31] LABS: Troponin I < 0.01 ng/ml (0.00-0.034)
[2022-07-30 17:00] VITALS: BP 114/63; PULSE 83; RESP 18; O2SAT 96
[2022-07-30 17:01] LABS: Lymphocytes % 11 % (10-50); Monocytes % 3 % (2-9); Neutrophils % 86 % (42-76); Total Cells Counted 100
[2022-07-30 17:02] LABS: Platelet Estimate Slight Decrease; RBC Morphology Normal
[2022-07-30 17:30] VITALS: BP 122/63; PULSE 87; RESP 18; O2SAT 98
[2022-07-30 18:01] VITALS: BP 102/58; PULSE 87; RESP 15; O2SAT 98
[2022-07-30 18:36] VITALS: BP 110/78; PULSE 84; RESP 20; TEMP 36.8; O2SAT 98
== END 2022-07-30 18:38 | disposition home or self-care (01) ==
PROVIDERS: Emergency Provider Student in an Organized Health Care Education/Training Program; PCP Emergency Medicine
DX: R07.89 Other chest pain (principal); J44.9 Chronic obstructive pulmonary disease, unspecified; K21.9 Gastro-esophageal reflux disease without esophagitis; E78.5 Hyperlipidemia, unspecified; I10 Essential (primary) hypertension; K44.9 Diaphragmatic hernia without obstruction or gangrene; Z90.710 Acquired absence of both cervix and uterus; Z95.828 Presence of other vascular implants and grafts; F17.210 Nicotine dependence, cigarettes, uncomplicated; Z83.3 Family history of diabetes mellitus; Z82.49 Family history of ischemic heart disease and other diseases of the circulatory system
CPT/HCPCS: 71045; 80053; 83605; 84484; 85007; 85025; 87040; 93005; 99285

== ENCOUNTER → 2022-08-24 13:54 | Outpatient (CLI) | payer MEDICARE, OTHER, SELFPAY ==
[2022-08-24 14:50] LABS: Basophils # 0.1 K/mm3 (0-0.2); Basophils % 0.9 % (0.1-2.0); Eosinophils # 0.1 K/mm3 (0.0-0.4); Eosinophils % 2.3 % (0.1-12.0); Hematocrit 42.6 % (37.0-47.0); Hemoglobin 13.6 g/dL (12.2-16.2); Lymphocytes # 1.3 K/mm3 (0.7-4.5); Lymphocytes % 26.9 % (10-50); Mean Corpuscular Hemoglobin 29.9 pg (27.0-31.2); Mean Corpuscular Volume 93.6 fl (81-99); Mean Platelet Volume 10.3 fl (7.4-10.4); Monocytes # 0.4 K/mm3 (0.1-1.0); Monocytes % 8.8 % (1.7-9.3); Neutrophils % 61.1 % (37.0-80.0); Platelet Count 138 K/mm3 (142-424); Red Blood Count 4.55 M/mm3 (4.20-5.40); White Blood Count 4.9 K/mm3 (4.8-10.8)
[2022-08-24 15:07] LABS: Anion Gap 7.2 mEq/L (5-15); Blood Urea Nitrogen 12 mg/dl (7-17); Calcium 9.2 mg/dl (8.4-10.2); Carbon Dioxide 25 mmol/L (22.0-30.0); Chloride 107 mmol/L (98-107); Estimated Glomerular Filt Rate 71 ml/min (>60); GFR (African American) 85 ML/MIN (>60); Glucose 106 mg/dl (74-100); Potassium 4.2 mmoL/L (3.5-5.1); Sodium 135 mmol/L (136-145)
== END ==
PROVIDERS: PCP Emergency Medicine; Visit Provider Nurse Practitioner
DX: R60.0 Localized edema (principal); J44.9 Chronic obstructive pulmonary disease, unspecified
CPT/HCPCS: 36415; 80048; 85025

== ENCOUNTER → 2022-09-07 10:58 | Outpatient (CLI) | payer MEDICARE, OTHER, SELFPAY ==
--- NOTE | 2022-09-07 | CA_ITS ---
APPROVED REPORT Exam: Pharmacologic Technologist: Hali Willis Ht: 5 ft 6 in Wt: 255 lbs BSA: 2.22 m2 HR: 68 bpm BP: 116/64 mmHg Indications: Shortness of Breath, CAD, Abnormal EKG Medical History Medications: Lisinopril,,,,, Omeprazole,,,,, Aspirin,,,,, Verapamil,,,,, Gabapentin,,,,, Pantoprazole,,,,, Atorvastatin,,,,, Escitalopram,,,,, Buspirone,,,,, Duoneb,,,,, SyMBICORT,,,,, Albuterol,,,,, Stress Test Details Test: LEXISCAN HR Resting HR: 72 bpm Max Heart Rate (APMHR): 148.105099 bpm Max HR Achieved: 100 bpm Target HR (85% APMHR): 125.765831 bpm % of APMHR: 67.57 Recovery HR: 77 bpm BP Resting BP: 116.0/64.0 mmHg Max BP: 146.0/72.0 mmHg Recovery BP: 112.0/70.0 mmHg ECG Resting ECG: Normal sinus rhythm, rightward axis, low voltage QRS Clinical Exercise duration: 04:12 min Highest Stage Achieved: Stress ECG Conclusion Symptoms: Shortness of air, mild chest and stomach discomfort. Arrhythmias/Ectopy: None ST-T Changes: No significant changes. Conclusion: Unremarkable Lexiscan stress. Myoview images reported separately. Test Summary REST . . . . . . . Resting REST 03:32 . . 72 . 116/ 64 . . Stage 1 . . . . . . . Myoview Injected Stage 1 01:00 . . 86 . . . . Stage 2 01:00 . . 98 . 143/ 73 . . Stage 3 01:00 . . 88 . 146/ 72 . . Stage 4 01:00 . . 85 . 134/ 65 . . Stage 4 01:12 . . 85 . 134/ 65 . Stop exercise at 04:12 RECOVERY 01:00 . . 79 . . . . RECOVERY 02:00 . . 78 . 133/ 65 . . RECOVERY 03:00 . . 77 . 112/ 70 . . RECOVERY 03:18 . . 76 . 112/ 70 . . Electronically signed by : Tom Snider MD 09/07/2022 18:57:28
--- NOTE | 2022-09-07 11:01 | CA_ITS ---
APPROVED REPORT EXAM: Comprehensive 2D, Doppler, and color-flow Echocardiogram Director Of Casino: Martha Medina CRT Ht: 5 ft 6 in Wt: 255lbs BSA: 2.22 BP: 133/73 mmHg Indications: Chest Pain, COPD, Shortness of Breath, asthma 2D Dimensions LVOT 1.90 cm (M/F) 1.5-2.5 M-Mode Dimensions RVDd 2.84 cm (0.9-2.6) LA Diam 4.45 cm (1.9-4.0) LVDd 4.33 cm (3.5-5.7) Ao Diam 3.81 cm (2.0-3.7) LVDs 2.88 cm (3.5-5.7) IVSd 1.82 cm (0.6-1.1) PWd 1.70 cm (0.6-1.1) EF (Teich) 62.40% FS 33.50% EDV (Teich) 84.40 mL TAPSE 1.87 (<1.7) ESV (Teich) 31.70 mL LV Diastology E Decel Time 183.00 (160-240 msec) E/A Ratio 0.83 MED E' 5.20 (< 7 cm/sec) MED A' 8.80 cm/s E'/MED E' Ratio 14.19 (>14) LAT E' 5.40 (<10 cm/sec) LAT A' 10.60 cm/s E/LAT E' Ratio 13.67 (>14) Aortic Valve AO Peak GR. 10.50 mmHg Mitral Valve MV E Max Antonio. 74.00 (40-130 cm/s) MV A Velocity 89.00 (40-130 cm/s) E/A Ratio 0.83 MV Decel. Time 183.00 (160-240 ms) MV PHT 54.00 ms Pulmonary Valve PV Peak Velocity 147.00 (50-150 cm/s) Tricuspid Valve TR P. Velocity 242.00 cm/s RAP Estimate 10.00 mmHg RVSP 33.40 mmHg Left Ventricle Left atrium is mildly enlarged left ventricle is normal size mild concentric left ventricular hypertrophy estimated ejection fraction 55% with no regional wall motion abnormality, grade 1 diastolic dysfunction seen without tissue Doppler evidence of late left atrial pressure. Right Ventricle Right atrium and right ventricular mildly enlarged with normal contractility. Aortic Valve Aortic valve is minimally thickened and fibrosed there is no aortic stenosis or aortic insufficiency. Mitral Valve Mitral valve is grossly normal, there is trace mitral regurgitation. Tricuspid Valve Tricuspid grossly normal, there is trace tricuspid regurgitation, tricuspid regurgitation jet velocity is inadequate for calculation of the right ventricular systolic pressure. Pulmonic Valve Pulmonic valve is poorly visualized. Great Vessels Aortic root is normal size. Inferior vena cava normal 7 normal inspiratory collapse. Pericardium No significant pericardial effusion noted. Conclusion 1. Mild biatrial enlargement, normal left ventricular size mild concentric left ventricular hypertrophy, estimated ejection fraction 55% with no regional wall motion abnormality, grade 1 diastolic dysfunction seen without tissue Doppler evidence of raise left atrial pressure. 2. Mildly enlarged right ventricle with normal contractility. 3. Trace mitral and tricuspid regurgitation. 4. No significant pericardial effusion noted. 5. Inferior vena cava normal size with normal inspiratory collapse. Electronically signed by : Tom Snider MD 09/07/2022 19:31:40
--- NOTE | 2022-09-07 11:53 | NM_ITS ---
APPROVED REPORT Exam: Nuclear Stress Test Indication: chest pain..short of breath..palpiations..syncope..fatigue Patient Location: Outpatient Stress Tech: Hali Willis NM Tech:NIKKIE Warner RT (R)(N)(M) Ht: 5 ft 6 in Wt: 250 lbs Bra Size: B HR: 68 bpm BP: 116/64 mmHg BSA: 2.20 m2 TID: 1.40 BMI: 40.3 History: chest pain..short of breath..palpiations..syncope..fatigue Procedure: Patient received 0.4 mg of intravenous Lexiscan, resting heart rate 68 bpm, resting blood pressure 116/64 mmHg, with Lexiscan maximum heart rate achieved was 98 bpm which is Less than 85 % of the maximum predicted heart rate and blood pressure was 143/73 mmHg. With Lexiscan, patient denied any complaint of chest pain. The patient was unable to lay on her belly for prone images. Electrocardiogram Resting electrocardiogram shows sinus rhythm with Lexiscan there is less than 1.[address] segment depression noted from the baseline EKG. The EKG portion of the Lexiscan is nondiagnostic. Cardiac Stress and Resting SPECT Images: Cardiac Stress and Resting SPECT images were obtained using technetium 99m Myoview 31.2 mCi stress and 10.07 mCi at rest. Gated SPECT analysis of segmental wall motion and calculation of the ejection fraction also done. Cardiac stress and rest respectively show uniform myocardial activity without segmental perfusion abnormality, computer derived ejection fraction over 65% with no regional wall motion abnormality, right ventricle is mildly enlarged with normal contractility. There is transient ischemic dilatation of the left ventricle is noted which is likely artifactual. Conclusion: 1. The EKG portion of the Lexiscan is nondiagnostic. 2. No scintigraphic evidence of reversible ischemia seen, computer derived ejection fraction is over 65% with no regional wall motion abnormality, right ventricle is mildly enlarged with normal contractility. There is transient ischemic dilatation reported in the study which is likely artifactual. 3. Likely normal Lexiscan Myoview study. Electronically signed by : Tom Snider MD 09/07/2022 19:03:33
== END ==
PROVIDERS: PCP Emergency Medicine; Visit Provider Nurse Practitioner
DX: R06.00 Dyspnea, unspecified (principal); R60.0 Localized edema; R07.89 Other chest pain
CPT/HCPCS: 78452; 93017; 93306; A9502; J2785

== ENCOUNTER → 2023-02-21 12:28 | Outpatient (CLI) | payer MEDICARE, OTHER, SELFPAY ==
--- NOTE | 2023-02-21 12:28 | CT_ITS ---
FINAL REPORT TECHNIQUE: Routine axial images were obtained from the lung apices to below the diaphragm following IV contrast administration. Individualized dose reduction techniques using automated exposure control or adjustment of the mA and/or kV according to the patient size were employed. CLINICAL HISTORY: rule out neoplasia COMPARISON: 06/02/2022 FINDINGS: Mediastinal vasculature is well opacified. There are few small scattered mediastinal lymph nodes. There are mild chronic changes at the lung bases. No acute lung disease is present. No pleural or pericardial effusion is seen. Moderate hiatal hernia is noted. There are calcified granulomas in the spleen. IMPRESSION: Moderate hiatal hernia. Reviewed, Interpreted and Dictated by Mingo Evans MD Transcribed by Christina Reilly Authenticated and [facility]
[2023-02-21 13:00] LABS: Blood Urea Nitrogen 19 mg/dl (7-17); Estimated Glomerular Filt Rate 61 ml/min (>60); GFR (African American) 74 ML/MIN (>60)
== END ==
PROVIDERS: PCP Emergency Medicine; Visit Provider Emergency Medicine
DX: K44.9 Diaphragmatic hernia without obstruction or gangrene (principal); D49.9 Neoplasm of unspecified behavior of unspecified site
CPT/HCPCS: 36415; 71260; 82565; 84520; Q9967

== ENCOUNTER → 2023-03-02 12:38 | Outpatient (CLI) | payer MEDICARE, OTHER, SELFPAY ==
--- NOTE | 2023-03-02 12:38 | MM_ITS ---
PROCEDURE INFORMATION: Exam: MG Bilateral Screening 3D Mammography Exam date and time: 03/02/2023 1:05 PM Age: 73 years old Clinical indication: Screening examination TECHNIQUE: Imaging protocol: Bilateral Screening tomosynthesis and 2D mammography including computer-aided detection (CAD) when performed. COMPARISON: 1. MG DMBAV DIG MAMM- SHARMILA ADD VIEWS 06/18/2016 1:12 PM 2. MG DMSB DIG MAMM-SCREEN SHARMILA 05/24/2016 5:02 PM FINDINGS: MAMMOGRAPHY: Breast composition: The breasts are heterogeneously dense, which may obscure small masses. Mass: Three adjacent masses in the posterior right approximate 11-1 o'clock axis measuring 1.7, 1.4, and 1.3 cm respectively. These are likely on the basis of underlying cystic change Architectural distortion: None. Calcifications: No suspicious calcifications. Asymmetric density: None. Skin thickening: None. Axillary adenopathy: None. IMPRESSION: Patient to be recalled for right breast ultrasound further evaluation of multiple right breast masses ASSESSMENT: BI-RADS Category 0: Incomplete- Need Additional Imaging Evaluation and/or Prior Mammograms for Comparison
== END ==
PROVIDERS: PCP Emergency Medicine; Visit Provider Emergency Medicine
DX: Z12.31 Encounter for screening mammogram for malignant neoplasm of breast (principal)
CPT/HCPCS: 77063; 77067

== ENCOUNTER → 2023-03-08 14:10 | Outpatient (CLI) | payer MEDICARE, OTHER, SELFPAY ==
--- NOTE | 2023-03-08 14:39 | US_ITS ---
PROCEDURE INFORMATION: Exam: US Right Breast, Complete Exam date and time: 03/08/2023 2:45 PM Age: 73 years old Clinical indication: Patient recalled for further evaluation of 3 right breast masses TECHNIQUE: Imaging protocol: Complete ultrasound of all four quadrants of the right breast and the retroareolar regions, including ultrasound of the axilla when performed. COMPARISON: BR US BREAST-RT COMPLETE W/AXILLA 06/18/2016 1:43 PM FINDINGS: Breast: Sonographic images of the right 1 o'clock axis 5 cm from the nipple demonstrates 3 adjacent cysts with a combined dimension of 2.2 cm corresponding to the 3 masses seen on mammography. An additional 0.4 cm cyst is noted in the right 2 o'clock axis 6 cm from the nipple. 0.4 cm cyst in the right 9 o'clock axis 5 cm from the nipple. 1.4 cm cyst in the right 10 o'clock axis 3 cm from the nipple. No solid masses. No architectural distortion or acoustical shadowing. No axillary adenopathy. IMPRESSION: Masses on screening mammography correspond to underlying benign cystic change sonographically. No mammographic evidence of malignancy. Annual screening is recommended unless otherwise clinically indicated. ASSESSMENT: BI-RADS Category 2: Benign
== END ==
PROVIDERS: PCP Emergency Medicine; Visit Provider Emergency Medicine
DX: R92.8 Other abnormal and inconclusive findings on diagnostic imaging of breast (principal)
CPT/HCPCS: 76641

== ENCOUNTER 2023-04-01 16:31 | Emergency (ER) | payer MEDICARE, OTHER, SELFPAY ==
[2023-04-01] VITALS (7 sets, daily range): BP systolic 117–146; BP diastolic 65–75; PULSE 62–95; RESP 19–26; TEMP 36.7–36.8; O2SAT 96–98; BMI 29.9
--- NOTE | 2023-04-01 16:34 | HMH.EDGENADL ---
Discharge Plan Disposition Patient Disposition: Home, Self-Care Condition: Good Prescriptions Prescriptions: New doxycycline hyclate 100 mg tablet 100 mg PO BID 7 Days Qty: 14 0RF prednisone 20 mg tablet 20 mg PO BID 5 Days Qty: 10 0RF No Action aspirin 81 mg tablet,delayed release (DR/EC) 81 mg PO DAILY Qty: 90 0RF pantoprazole [Protonix] 40 mg tablet,delayed release (DR/EC) 40 mg PO DAILY Qty: 30 5RF ipratropium-albuterol 0.5 mg-3 mg(2.5 mg base)/3 mL solution for nebulization 3 ml INHALATION Q4-6H PRN (Reason: shortness of breath or wheezing) Qty: 270 2RF budesonide-formoterol [Symbicort] 160-4.5 mcg/actuation HFA aerosol inhaler 2 puff inhalation BID 90 Days Qty: 10.2 2RF albuterol sulfate 90 mcg/actuation HFA aerosol inhaler 2 inh inhalation QID PRN (Reason: shortness of breath or wheezing) 90 Days Qty: 8.5 2RF gabapentin 800 mg tablet 800 mg PO QID Qty: 120 2RF furosemide 40 mg tablet 40 mg PO DAILY Qty: 90 1RF escitalopram oxalate 20 mg tablet See Rx Instructions .ROUTE .COMPLEX Qty: 30 3RF Dose Instruction: TAKE ONE TABLET BY MOUTH ONCE A DAY Rx Instructions: TAKE ONE TABLET BY MOUTH ONCE A DAY atorvastatin 40 mg tablet See Rx Instructions .ROUTE .COMPLEX Qty: 30 2RF Dose Instruction: TAKE ONE TABLET BY MOUTH ONCE A DAY FOR CHOLESTEROL Rx Instructions: TAKE ONE TABLET BY MOUTH ONCE A DAY FOR CHOLESTEROL buspirone 10 mg tablet See Rx Instructions .ROUTE .COMPLEX Qty: 90 2RF Dose Instruction: TAKE ONE TABLET BY MOUTH 3 TIMES A DAY FOR ANXIETY Rx Instructions: TAKE ONE TABLET BY MOUTH 3 TIMES A DAY FOR ANXIETY venlafaxine 37.5 mg tablet See Rx Instructions .ROUTE .COMPLEX Qty: 60 2RF Dose Instruction: TAKE ONE TABLET BY MOUTH 2 TIMES A DAY FOR DEPRESSION Rx Instructions: TAKE ONE TABLET BY MOUTH 2 TIMES A DAY FOR DEPRESSION lisinopril 20 mg tablet See Rx Instructions .ROUTE .COMPLEX Qty: 30 2RF Dose Instruction: TAKE ONE TABLET BY MOUTH ONCE A DAY FOR HYPERTENSION Rx Instructions: TAKE ONE TABLET BY MOUTH ONCE A DAY FOR HYPERTENSION hydroxyzine pamoate 25 mg capsule See Rx Instructions .ROUTE .COMPLEX Qty: 30 1RF Dose Instruction: TAKE ONE CAPSULE BY MOUTH AT BEDTIME Rx Instructions: TAKE ONE CAPSULE BY MOUTH AT BEDTIME spironolactone 25 mg tablet 25 mg PO BID Qty: 180 1RF cetirizine 10 mg tablet See Rx Instructions .ROUTE .COMPLEX Rx Instructions: TAKE ONE TABLET BY MOUTH ONCE A DAY furosemide 40 mg tablet 40 mg PO DAILY atorvastatin 40 mg tablet 40 mg PO DAILY ipratropium-albuterol 0.5 mg-3 mg(2.5 mg base)/3 mL solution for nebulization 3 ml INHALATION Q6HP PRN (Reason: Dyspnea) spironolactone 25 mg tablet 25 mg PO DAILY trazodone 100 mg tablet 100 mg PO HS pantoprazole 40 mg tablet,delayed release (DR/EC) 40 mg PO DAILY albuterol sulfate [Ventolin HFA] 90 mcg/actuation HFA aerosol inhaler 90 mcg INHALATION Q6HP PRN (Reason: Dyspnea) hydroxyzine pamoate 25 mg capsule 25 mg PO BID budesonide-formoterol [Symbicort] 160-4.5 mcg/actuation HFA aerosol inhaler 1 inh INHALATION Q6HP PRN (Reason: Dyspnea) trazodone 100 mg tablet 100 mg PO HS Rx Instructions: TAKE ONE TABLET BY MOUTH AT BEDTIME NEEDED FOR INSOMNIA verapamil 80 mg tablet 80 mg PO TID Rx Instructions: TAKE ONE TABLET BY MOUTH 3 TIMES A DAY FOR HIGH BLOOD PRESSURE Referrals Follow up/Referrals: Rafy Kiser MD [Primary Care Provider] - See instructions Activity Restrictions/Add. Instructions Additional Instructions/Restrictions: Please return if you have any new or worsening symptoms. Clinical Impressions Clinical Impression: COPD exacerbation Instructions Patient Instructions: DI for Chronic Obstructive Pulmonary Disease Discharge ED Provider: Ranjit Keys
--- NOTE | 2023-04-01 16:37 | ECG_ITS ---
APPROVED REPORT Exam: Resting ECG HR:75 bpm ECG Measurements Heart Rate 75 AXES DC 152 P 56 QRSd 94 QRS -9 QT 385 T 76 QTc 414 Conclusion SINUS RHYTHM LOW QRS VOLTAGE IN PRECORDIAL LEADS [QRS DEFLECTION < 1.0 mV IN CHEST LEADS] BORDERLINE ECG UNCONFIRMED REPORT Electronically signed by : Chris Cool MD 04/02/2023 07:55:51
--- NOTE | 2023-04-01 17:23 | XR_ITS ---
PROCEDURE INFORMATION: Exam: XR Chest Exam date and time: 04/01/2023 5:30 PM Age: 73 years old Clinical indication: Shortness of breath; Additional info: SOA TECHNIQUE: Imaging protocol: Radiologic exam of the chest. Views: 2 views. COMPARISON: CT CHEST W CON 02/21/2023 1:17 PM FINDINGS: Lungs: Unremarkable. No consolidation. Pleural spaces: Unremarkable. No pleural effusion. No pneumothorax. Heart/Mediastinum: Cardiac silhouette is mildly enlarged and stable. Bones/joints: Moderate degenerative changes throughout the thoracic spine and both shoulders. No acute fracture. IMPRESSION: No acute interval change
[2023-04-01 17:28] LABS: Alanine Aminotransferase 30 U/L (12-78); Albumin Level 3.9 g/dl (3.5-5.0); Albumin/Globulin Ratio 1.1 (1.1-1.8); Alkaline Phosphatase 110 U/L (38-126); Anion Gap 11.4 mEq/L (5-15); Aspartate Amino Transferase 33 U/L (14-36); Bilirubin,Total 0.2 mg/dl (0.2-1.3); Blood Urea Nitrogen 14 mg/dl (7-17); Calcium 8.9 mg/dl (8.4-10.2); Carbon Dioxide 25 mmol/L (22.0-30.0); Chloride 108 mmol/L (98-107); Creatinine Clearance Estimated 67 mL/min (50-200); Estimated Glomerular Filt Rate 61 ml/min (>60); GFR (African American) 74 ML/MIN (>60); Globulin 3.5 g/dL (1.3-3.2); Glucose 132 mg/dl (74-100); Potassium 4.4 mmoL/L (3.5-5.1); Sodium 140 mmol/L (136-145); Total Protein,Serum 7.4 g/dl (6.3-8.2)
[2023-04-01 17:29] LABS: Basophils % 0.4 % (0.1-2.0); Eosinophils # 0.3 K/mm3 (0.0-0.4); Eosinophils % 5.8 % (0.1-12.0); Hematocrit 41.2 % (37.0-47.0); Hemoglobin 13.2 g/dL (12.2-16.2); Lymphocytes # 1.5 K/mm3 (0.7-4.5); Lymphocytes % 26.2 % (10-50); Mean Corpuscular Hemoglobin 29.8 pg (27.0-31.2); Mean Platelet Volume 9.4 fl (7.4-10.4); Monocytes # 0.4 K/mm3 (0.1-1.0); Monocytes % 7.1 % (1.7-9.3); Neutrophils # 3.4 K/mm3 (1.8-7.8); Neutrophils % 60.6 % (37.0-80.0); Platelet Count 131 K/mm3 (142-424); Red Blood Count 4.43 M/mm3 (4.20-5.40); Red Cell Distribution Width 13.1 % (11.5-17.5); White Blood Count 5.6 K/mm3 (4.8-10.8)
[2023-04-01 17:36] LABS: VBG Base Excess -2.4 mmol/L (-2.4-2.3); VBG HCO3 22.4 mmol/L (23-30); VBG PCO2 36.9 mmol/L (35-51); VBG Total CO2 23.5 mmol/L (23-27)
[2023-04-01 17:51] LABS: Coronavirus 19, PCR Not Detected (NotDetected); Influenza A, PCR Not Detected (NotDetected); Influenza B, PCR Not Detected (NotDetected)
[2023-04-01 17:54] LABS: Troponin I < 0.01 ng/ml (0.00-0.034)
[2023-04-01 18:14] LABS: NT Pro Brain Natriuretic Pep. 119 pg/mL (0-125)
[2023-04-01 20:26] LABS: Troponin I < 0.01 ng/ml (0.00-0.034)
--- NOTE | 2023-04-01 20:28 | PC.NURSE ---
ready for re eval
== END 2023-04-01 20:38 | disposition home or self-care (01) ==
PROVIDERS: Emergency Provider Emergency Medicine; PCP Emergency Medicine
DX: J44.1 Chronic obstructive pulmonary disease with (acute) exacerbation (principal); R07.89 Other chest pain; M62.831 Muscle spasm of calf; E11.9 Type 2 diabetes mellitus without complications; K21.9 Gastro-esophageal reflux disease without esophagitis; I10 Essential (primary) hypertension; E78.5 Hyperlipidemia, unspecified; G25.81 Restless legs syndrome; K44.9 Diaphragmatic hernia without obstruction or gangrene; F41.9 Anxiety disorder, unspecified; Z79.4 Long term (current) use of insulin
CPT/HCPCS: 71046; 80053; 82803; 83880; 84484; 85025; 87636; 93005; 96365; 96374; 96375; 99284; J3475

== ENCOUNTER 2023-04-02 01:02 | Emergency (ER) | payer MEDICARE, OTHER, SELFPAY ==
[2023-04-02 01:05] VITALS: BP 154/72; PULSE 107; RESP 28; TEMP 37.2; O2SAT 98; BMI 29.9
--- NOTE | 2023-04-02 01:39 | HMH.EDGENADL ---
Discharge Plan Disposition Patient Disposition: Home, Self-Care Condition: Fair Prescriptions Prescriptions: New azithromycin 250 mg tablet See Rx Instructions .ROUTE .COMPLEX Qty: 6 0RF Rx Instructions: For 250 mg dose pack: take 500 mg today (day 1), then 250 mg for 4 days (days 2-5) prednisone 50 mg tablet 50 mg PO DAILY 5 Days Qty: 5 0RF Discontinued doxycycline hyclate 100 mg tablet 100 mg PO BID 7 Days Qty: 14 0RF prednisone 20 mg tablet 20 mg PO BID 5 Days Qty: 10 0RF No Action aspirin 81 mg tablet,delayed release (DR/EC) 81 mg PO DAILY Qty: 90 0RF pantoprazole [Protonix] 40 mg tablet,delayed release (DR/EC) 40 mg PO DAILY Qty: 30 5RF ipratropium-albuterol 0.5 mg-3 mg(2.5 mg base)/3 mL solution for nebulization 3 ml INHALATION Q4-6H PRN (Reason: shortness of breath or wheezing) Qty: 270 2RF budesonide-formoterol [Symbicort] 160-4.5 mcg/actuation HFA aerosol inhaler 2 puff inhalation BID 90 Days Qty: 10.2 2RF albuterol sulfate 90 mcg/actuation HFA aerosol inhaler 2 inh inhalation QID PRN (Reason: shortness of breath or wheezing) 90 Days Qty: 8.5 2RF gabapentin 800 mg tablet 800 mg PO QID Qty: 120 2RF furosemide 40 mg tablet 40 mg PO DAILY Qty: 90 1RF escitalopram oxalate 20 mg tablet See Rx Instructions .ROUTE .COMPLEX Qty: 30 3RF Dose Instruction: TAKE ONE TABLET BY MOUTH ONCE A DAY Rx Instructions: TAKE ONE TABLET BY MOUTH ONCE A DAY atorvastatin 40 mg tablet See Rx Instructions .ROUTE .COMPLEX Qty: 30 2RF Dose Instruction: TAKE ONE TABLET BY MOUTH ONCE A DAY FOR CHOLESTEROL Rx Instructions: TAKE ONE TABLET BY MOUTH ONCE A DAY FOR CHOLESTEROL buspirone 10 mg tablet See Rx Instructions .ROUTE .COMPLEX Qty: 90 2RF Dose Instruction: TAKE ONE TABLET BY MOUTH 3 TIMES A DAY FOR ANXIETY Rx Instructions: TAKE ONE TABLET BY MOUTH 3 TIMES A DAY FOR ANXIETY venlafaxine 37.5 mg tablet See Rx Instructions .ROUTE .COMPLEX Qty: 60 2RF Dose Instruction: TAKE ONE TABLET BY MOUTH 2 TIMES A DAY FOR DEPRESSION Rx Instructions: TAKE ONE TABLET BY MOUTH 2 TIMES A DAY FOR DEPRESSION lisinopril 20 mg tablet See Rx Instructions .ROUTE .COMPLEX Qty: 30 2RF Dose Instruction: TAKE ONE TABLET BY MOUTH ONCE A DAY FOR HYPERTENSION Rx Instructions: TAKE ONE TABLET BY MOUTH ONCE A DAY FOR HYPERTENSION hydroxyzine pamoate 25 mg capsule See Rx Instructions .ROUTE .COMPLEX Qty: 30 1RF Dose Instruction: TAKE ONE CAPSULE BY MOUTH AT BEDTIME Rx Instructions: TAKE ONE CAPSULE BY MOUTH AT BEDTIME spironolactone 25 mg tablet 25 mg PO BID Qty: 180 1RF cetirizine 10 mg tablet See Rx Instructions .ROUTE .COMPLEX Rx Instructions: TAKE ONE TABLET BY MOUTH ONCE A DAY furosemide 40 mg tablet 40 mg PO DAILY atorvastatin 40 mg tablet 40 mg PO DAILY ipratropium-albuterol 0.5 mg-3 mg(2.5 mg base)/3 mL solution for nebulization 3 ml INHALATION Q6HP PRN (Reason: Dyspnea) spironolactone 25 mg tablet 25 mg PO DAILY trazodone 100 mg tablet 100 mg PO HS pantoprazole 40 mg tablet,delayed release (DR/EC) 40 mg PO DAILY albuterol sulfate [Ventolin HFA] 90 mcg/actuation HFA aerosol inhaler 90 mcg INHALATION Q6HP PRN (Reason: Dyspnea) hydroxyzine pamoate 25 mg capsule 25 mg PO BID budesonide-formoterol [Symbicort] 160-4.5 mcg/actuation HFA aerosol inhaler 1 inh INHALATION Q6HP PRN (Reason: Dyspnea) trazodone 100 mg tablet 100 mg PO HS Rx Instructions: TAKE ONE TABLET BY MOUTH AT BEDTIME NEEDED FOR INSOMNIA verapamil 80 mg tablet 80 mg PO TID Rx Instructions: TAKE ONE TABLET BY MOUTH 3 TIMES A DAY FOR HIGH BLOOD PRESSURE Referrals Follow up/Referrals: Rafy Kiser MD [Primary Care Provider] - See instructions Activity Restrictions/Add. Instructions Additional Instructi
--- NOTE | 2023-04-02 01:55 | ECG_ITS ---
APPROVED REPORT Exam: Resting ECG HR:84 bpm ECG Measurements Heart Rate 84 AXES MS 148 P 42 QRSd 93 QRS -15 QT 365 T 58 QTc 405 Conclusion SINUS RHYTHM NORMAL ECG UNCONFIRMED REPORT Electronically signed by : Chris Cool MD 04/03/2023 07:34:43
[2023-04-02 02:00] VITALS: BP 134/63; PULSE 89; O2SAT 96
[2023-04-02 02:20] LABS: Troponin I < 0.01 ng/ml (0.00-0.034)
[2023-04-02 02:45] VITALS: BP 134/63; PULSE 89; RESP 20; TEMP 36.9; O2SAT 95
== END 2023-04-02 02:51 | disposition home or self-care (01) ==
PROVIDERS: Emergency Provider Emergency Medicine; PCP Emergency Medicine
DX: J44.1 Chronic obstructive pulmonary disease with (acute) exacerbation (principal); E11.9 Type 2 diabetes mellitus without complications; K21.9 Gastro-esophageal reflux disease without esophagitis; I10 Essential (primary) hypertension; E78.5 Hyperlipidemia, unspecified; G25.81 Restless legs syndrome; K44.9 Diaphragmatic hernia without obstruction or gangrene; F41.9 Anxiety disorder, unspecified; Z79.4 Long term (current) use of insulin
CPT/HCPCS: 84484; 93005; 99283

== ENCOUNTER 2023-06-30 09:08 | Outpatient (CLI) | payer MEDICARE, OTHER, SELFPAY ==
[2023-06-30 10:05] VITALS: PULSE 76; PULSE 78
[2023-06-30] MEDS: ALBUTEROL 0.083% 2.5 MG/3 ML NEB IH (10:05)
== END 2023-06-30 23:59 ==
LOC: RT 09:08
PROVIDERS: PCP Emergency Medicine; Visit Provider Internal Medicine Pulmonary Disease
DX: R06.02 Shortness of breath (principal)
CPT/HCPCS: 94060; 94640

== ENCOUNTER 2023-07-02 18:13 | Emergency (ER) | payer MEDICARE, OTHER, SELFPAY ==
[2023-07-02 18:14] VITALS: BP 171/89; PULSE 102; RESP 18; TEMP 36.6; O2SAT 97; BMI 46.1
[2023-07-02 18:29] VITALS: BMI 46.1
[2023-07-02 18:30] VITALS: BP 133/77; PULSE 94; O2SAT 99
--- NOTE | 2023-07-02 18:33 | ECG_ITS ---
APPROVED REPORT Exam: Resting ECG HR:78 bpm ECG Measurements Heart Rate 78 AXES SD 159 P 69 QRSd 92 QRS 52 QT 389 T 77 QTc 422 Conclusion SINUS RHYTHM POSSIBLE RIGHT VENTRICULAR CONDUCTION DELAY [RSR (QR) IN V1/V2] BORDERLINE ECG UNCONFIRMED REPORT Electronically signed by : Chris Cool MD 07/03/2023 09:02:53
[2023-07-02 18:34] LABS: Coronavirus 19, PCR Not Detected (NotDetected); Influenza A, PCR Not Detected (NotDetected); Influenza B, PCR Not Detected (NotDetected)
--- NOTE | 2023-07-02 18:34 | XR_ITS ---
PROCEDURE INFORMATION: Exam: XR Chest Exam date and time: 07/02/2023 6:43 PM Age: 73 years old Clinical indication: Cough and shortness of breath; Additional info: Cough SOB edema TECHNIQUE: Imaging protocol: Radiologic exam of the chest. Views: 1 view. COMPARISON: 1. CT CHEST W CON 02/21/2023 1:17 PM 2. CR XR CHEST 2V 04/01/2023 5:30 PM FINDINGS: Lungs: Left lower lobe haziness likely related to a prominent epicardial fat pad. No consolidation. Pleural spaces: Unremarkable. No pleural effusion. No pneumothorax. Heart/Mediastinum: Cardiomegaly. Calcified atherosclerotic changes of the thoracic aorta. Bones/joints: Unremarkable. IMPRESSION: No acute findings.
[2023-07-02 18:36] LABS: Microscopic, Urine URINE MICROSCOPIC (MICROSCOPIC)
[2023-07-02 18:46] LABS: Appearance,Urine CLEAR (Clear); Blood, Urine Negative (Negative); Color,Urine YELLOW (Yellow); Glucose,Urine (UA) Negative (Negative); Ketones,Urine Negative (Negative); Leukocyte Esterase,Urine TRACE (Negative); Nitrate,Urine Negative (Negative); Protein,Urine Negative (Negative); Specific Gravity, Urine 1.025 (1.005-1.030)
[2023-07-02 18:52] LABS: Basophils # 0.1 K/mm3 (0-0.2); Basophils % 0.8 % (0.1-2.0); Eosinophils # 0.3 K/mm3 (0.0-0.4); Hematocrit 40.8 % (37.0-47.0); Lymphocytes # 1.4 K/mm3 (0.7-4.5); Lymphocytes % 23.3 % (10-50); Mean Corpuscular HGB Conc 34.3 g/dL (31.8-35.4); Mean Corpuscular Hemoglobin 30.8 pg (27.0-31.2); Mean Corpuscular Volume 89.9 fl (81-99); Mean Platelet Volume 10.4 fl (7.4-10.4); Monocytes # 0.4 K/mm3 (0.1-1.0); Monocytes % 6.4 % (1.7-9.3); Neutrophils # 3.9 K/mm3 (1.8-7.8); Neutrophils % 64.5 % (37.0-80.0); Platelet Count 111 K/mm3 (142-424); Red Blood Count 4.54 M/mm3 (4.20-5.40); Red Cell Distribution Width 13.2 % (11.5-17.5)
[2023-07-02 18:54] LABS: Bilirubin,Urine 1+ (Negative)
[2023-07-02 18:58] LABS: Alanine Aminotransferase 26 U/L (12-78); Albumin Level 4.1 g/dl (3.5-5.0); Albumin/Globulin Ratio 1.3 (1.1-1.8); Alkaline Phosphatase 128 U/L (38-126); Anion Gap 12.9 mEq/L (5-15); Aspartate Amino Transferase 34 U/L (14-36); Bilirubin,Total 0.3 mg/dl (0.2-1.3); Blood Urea Nitrogen 20 mg/dl (7-17); Calcium 9.1 mg/dl (8.4-10.2); Carbon Dioxide 23 mmol/L (22.0-30.0); Chloride 101 mmol/L (98-107); Creatinine Clearance Estimated 47 mL/min (50-200); Estimated Glomerular Filt Rate 61 ml/min (>60); GFR (African American) 74 ML/MIN (>60); Globulin 3.2 g/dL (1.3-3.2); Glucose 119 mg/dl (74-100); Magnesium 1.8 mg/dl (1.6-2.3); Potassium 3.9 mmoL/L (3.5-5.1); Sodium 133 mmol/L (136-145); Total Protein,Serum 7.3 g/dl (6.3-8.2)
--- NOTE | 2023-07-02 18:58 | HMH.EDGENADL ---
Discharge Plan Disposition Patient Disposition: Home, Self-Care Prescriptions Prescriptions: New sulfamethoxazole-trimethoprim 800-160 mg tablet 1 tab PO BID 7 Days Qty: 14 0RF sulfamethoxazole-trimethoprim 800-160 mg tablet 1 tab PO BID 7 Days Qty: 14 0RF No Action aspirin 81 mg tablet,delayed release (DR/EC) 81 mg PO DAILY Qty: 90 0RF gabapentin 800 mg tablet 800 mg PO QID Qty: 120 2RF escitalopram oxalate 20 mg tablet See Rx Instructions .ROUTE .COMPLEX Qty: 30 1RF Dose Instruction: TAKE ONE TABLET BY MOUTH ONCE A DAY Rx Instructions: TAKE ONE TABLET BY MOUTH ONCE A DAY hydroxyzine pamoate 25 mg capsule See Rx Instructions .ROUTE .COMPLEX Qty: 30 2RF Dose Instruction: TAKE ONE CAPSULE BY MOUTH AT BEDTIME Rx Instructions: TAKE ONE CAPSULE BY MOUTH AT BEDTIME venlafaxine 37.5 mg tablet See Rx Instructions .ROUTE .COMPLEX Qty: 60 0RF Dose Instruction: TAKE ONE TABLET BY MOUTH 2 TIMES A DAY FOR DEPRESSION Rx Instructions: TAKE ONE TABLET BY MOUTH 2 TIMES A DAY FOR DEPRESSION buspirone 10 mg tablet See Rx Instructions .ROUTE .COMPLEX Qty: 90 0RF Dose Instruction: TAKE ONE TABLET BY MOUTH 3 TIMES A DAY FOR ANXIETY Rx Instructions: TAKE ONE TABLET BY MOUTH 3 TIMES A DAY FOR ANXIETY furosemide 40 mg tablet 40 mg PO DAILY Qty: 90 1RF atorvastatin 40 mg tablet See Rx Instructions .ROUTE .COMPLEX Qty: 30 0RF Dose Instruction: TAKE ONE TABLET BY MOUTH ONCE A DAY FOR CHOLESTEROL Rx Instructions: TAKE ONE TABLET BY MOUTH ONCE A DAY FOR CHOLESTEROL verapamil 80 mg tablet See Rx Instructions .ROUTE .COMPLEX Qty: 90 0RF Dose Instruction: TAKE ONE TABLET BY MOUTH 3 TIMES A DAY FOR HIGH BLOOD PRESSURE Rx Instructions: TAKE ONE TABLET BY MOUTH 3 TIMES A DAY FOR HIGH BLOOD PRESSURE trazodone 100 mg tablet See Rx Instructions .ROUTE .COMPLEX Qty: 30 0RF Dose Instruction: TAKE ONE TABLET BY MOUTH AT BEDTIME NEEDED FOR INSOMNIA Rx Instructions: TAKE ONE TABLET BY MOUTH AT BEDTIME NEEDED FOR INSOMNIA lisinopril 20 mg tablet See Rx Instructions .ROUTE .COMPLEX Qty: 30 0RF Dose Instruction: TAKE ONE TABLET BY MOUTH ONCE A DAY FOR HYPERTENSION Rx Instructions: TAKE ONE TABLET BY MOUTH ONCE A DAY FOR HYPERTENSION cetirizine 10 mg tablet See Rx Instructions .ROUTE .COMPLEX Rx Instructions: TAKE ONE TABLET BY MOUTH ONCE A DAY ipratropium-albuterol 0.5 mg-3 mg(2.5 mg base)/3 mL solution for nebulization 3 ml INHALATION Q6HP PRN (Reason: Dyspnea) spironolactone 25 mg tablet 25 mg PO DAILY pantoprazole 40 mg tablet,delayed release (DR/EC) 40 mg PO DAILY albuterol sulfate [Ventolin HFA] 90 mcg/actuation HFA aerosol inhaler 90 mcg INHALATION Q6HP PRN (Reason: Dyspnea) budesonide-formoterol [Symbicort] 160-4.5 mcg/actuation HFA aerosol inhaler 1 inh INHALATION Q6HP PRN (Reason: Dyspnea) Referrals Follow up/Referrals: Desmond Anderson DO [Primary Care Provider] - See instructions Activity Restrictions/Add. Instructions Additional Instructions/Restrictions: Please take Bactrim as prescribed for urinary tract infection. Please take your Lasix 40 mg twice a day for the next 2 days instead of once a day. Please follow-up with your primary care provider as soon as possible for reassessment. Please follow-up to have a DVT ultrasound performed, they should be calling. Please return to the emergency department if you develop any new or worsening symptoms or become concerned for your health. Clinical Impressions Clinical Impression: Acute UTI, SOB (shortness of breath), Volume overload, Acute pain of right lower extremity Discharge ED Provider: Dion Cox General Adult HPI General Chief complaint: Shortness of Breath/Dyspnea Stated complaint: cold sweats, poss dehydration, soa Time Seen by Provider: 07/02/23 18:19 Mode of Arrival: Ambulatory Source of Information: Patient Limitations: No Limitations Description of Symptoms (Recalled from ER Triage Doc. by RN): pt comes in with c/o increased shortness of air, staying on oxygen at all times, breaks out in cold sweats, productive cough with muscus, body aches. History of Present Illness HPI narrative: 73-year-old female presents with worsening shortness of breath as well as cold sweats, productive cough, body aches and chest pain this morning. She reports that her chest pain was this morning, resolved after taking her anxiety medications. She reports worsening lower extremity swelling despite taking her water pills and peeing a lot. She has oxygen at home as needed, but has required it 17/01 for the last few days. Patient reports some burning with urination. After multiple discussions with patient, she has essentially stewart positive review of systems and has somewhat low health literacy. Related Data Home Medications Medication Instructions Recorded Confirmed cetirizine 10 mg tablet See Rx Instructions .Route 07/30/22 07/02/23 .COMPLEX allergies albuterol sulfate 90 mcg/actuation 90 mcg inhalation Q6HP PRN Dyspnea 04/02/23 07/02/23 aerosol inhaler (Ventolin HFA) budesonide-formoterol HFA 160 1 inh inhalation Q6HP PRN Dyspnea 04/02/23 07/02/23 mcg-4.5 mcg/actuation aerosol inhaler (Symbicort) ipratropium 0.5 mg-albuterol 3 mg 3 ml inhalation Q6HP PRN Dyspnea 04/02/23 07/02/23 (2.5 mg base)/3 mL nebulization soln pantoprazole 40 mg tablet,delayed 40 mg PO DAILY 04/02/23 07/02/23 release spironolactone 25 mg tablet 25 mg PO DAILY 04/02/23 07/02/23 Previous Rx's Medication Instructions Recorded aspirin 81 mg tablet,delayed 81 mg PO DAILY heart [place] #90 11/21/19 release tabs buspirone 10 mg tablet See Rx Instructions .Route 05/06/23 .COMPLEX #90 tabs escitalopram oxalate 20 mg tablet See Rx Instructions .Route 05/06/23 .COMPLEX #30 tabs furosemide 40 mg tablet 40 mg PO DAILY Fluid #90 tabs 05/06/23 hydroxyzine pamoate 25 mg capsule See Rx Instructions .Route 05/06/23 .COMPLEX #30 caps venlafaxine 37.5 mg tablet See Rx Instructions .Route 05/06/23 .COMPLEX #60 tabs gabapentin 800 mg tablet 800 mg PO QID neuropathy #120 tabs 05/16/23 atorvastatin 40 mg tablet See Rx Instructions .Route 05/18/23 .COMPLEX #30 tabs trazodone 100 mg tablet See Rx Instructions .Route 06/07/23 .COMPLEX #30 tabs verapamil 80 mg tablet See Rx Instructions .Route 06/07/23 .COMPLEX #90 tabs lisinopril 20 mg tablet See Rx Instructions .Route 06/28/23 .COMPLEX #30 tabs sulfamethoxazole 800 1 tab PO BID 7 days #14 tabs 07/02/23 mg-trimethoprim 160 mg tablet sulfamethoxazole 800 1 tab PO BID 7 days #14 tabs 07/02/23 mg-trimethoprim 160 mg tablet Allergies Allergy/AdvReac Type Severity Reaction Status Date / Time No Known Allergies Allergy Verified 05/16/23 13:07 [facility] Disclaimer: The information contained in this section may have been updated after the patient was seen, as this information can be updated by other users. Medical History Anxiety Asthma Chronic obstructive pulmonary disease Daytime somnolence Dyspnea on exertion GERD (gastroesophageal reflux disease) Symptomatic Hiatal hernia She has a moderate size hiatal hernia associated with epigastric discomfort, symptomatic GERD and dyspnea with essentially noncontributory PFTs and overnight oximetry without evidence of significant SaO2 saturation. Hiatal hernia may be the main etiology for dyspnea since on occasion taken because left atrial compression, increased pulmonary venous pressure with production of interstitial edema and reduction of pulmonary compliance. Hyperlipidemia Hypertensive disorder On statin therapy Pulmonary emphysema Restless sleeper Surgical History History of abdominal surgery History of breast surgery History of cardiac cath History of esophagogastroduodenoscopy (EGD) History of heart artery stent History of hysterectomy Hx of heart artery stent Family History Other COPD (chronic obstructive pulmonary disease) Diabetes Heart disease Social History Smoking Status: Never smoker second hand exposure: No alcohol intake: never substance use type: denies use current occupational status: disabled Travel in the last 8 weeks: None household members: spouse housing: house current occupational exposures/hazards: No caffeine: Yes ROS Obtained: Yes All systems reviewed & no additional complaints except as documented Physical Exam General General appearance: alert and in no apparent distress Head Head exam: atraumatic and normocephalic Eye Eye exam: Present normal appearance, PERRL and EOMI ENT ENT exam: Present normal oropharynx and normal external ear exam Neck Neck exam: Present normal inspection and full ROM Chest Chest inspection: Present normal inspection and symmetric chest wall rise; Absent tenderness Respiratory Respiratory exam: Present normal lung sounds bilaterally; Absent respiratory distress, wheezes or stridor Cardiovascular Cardiovascular exam: Present regular rate and normal rhythm Abdominal Exam Abdominal exam: Present soft; Absent distention, tenderness or guarding Extremities Exam Extremities exam: Present normal inspection and edema (Bilateral lower extremity. Mild posterior calf and popliteal tenderness in the right side. No unilateral changes in color or swelling noted); Absent joint swelling Back Exam Back exam: Present normal inspection; Absent tenderness Neurological Exam Neurological exam: Present alert and oriented X3; Absent motor sensory deficit Psychiatric Psychiatric exam: Present normal affect and normal mood Skin Skin exam: Present warm, dry and normal color Lymphatic Lymphatic Findings: no adenopathy Medical Decision Making Medical Records Medical records reviewed: Yes I reviewed the patient's medical records. Sumeet Inquiry Pt receiving controlled substance: No Sumeet was queried for this patient: No Vital Signs: 07/02/23 18:14 07/02/23 18:30 07/02/23 19:00 Temperature 97.8 F Temperature Source Oral Pulse Rate 94 H 75 Pulse Rate [Left Radial] 102 H Respiratory Rate 18 18 Blood Pressure 133/77 126/76 Blood Pressure [Right Arm] 171/89 H Blood Pressure Mean 95 88 Blood Pressure Mean [Right Arm] 116 02 Sat by Pulse Oximetry 97 99 98 Oxygen Delivery Method Nasal Cannula Room Air Nasal Cannula Oxygen Flow Rate (LPM) 3 3 07/02/23 19:30 07/02/23 20:00 07/02/23 20:55 Temperature 97.8 F Temperature Source Oral Pulse Rate 73 71 67 Pulse Rate [Left Radial] Respiratory Rate 20 18 18 Blood Pressure 126/65 137/74 134/75 Blood Pressure [Right Arm] Blood Pressure Mean 78 90 Blood Pressure Mean [Right Arm] 02 Sat by Pulse Oximetry 98 97 Oxygen Delivery Method Nasal Cannula Nasal Cannula Nasal Cannula Oxygen Flow Rate (LPM) 3 3 3 Lab Data Lab results reviewed: Yes I reviewed the patient's lab results. Lab Results 07/02/23 18:20: Urine Color Yellow, Urine Appearance Clear, Urine pH 6.0, Ur Specific [place] 1.025, Urine Protein Negative, Urine Glucose (UA) Negative, Urine Ketones Negative, Urine Blood Negative, Urine Nitrate Negative, Urine Bilirubin 1+ A, Urine Urobilinogen 1.0, Ur Leukocyte Esterase Trace, Urine RBC None, Urine WBC 3-5, Ur Squamous Epith Cells 3-5, Urine Bacteria Trace 07/02/23 18:25: SARS-CoV-2 (PCR) Not detected, Influenza A Untype (PCR) Not detected, Influenza Type B (PCR) Not detected 07/02/23 18:37: WBC 6.0, RBC 4.54, Hgb 14.0, Hct 40.8, MCV 89.9, MCH 30.8, MCHC 34.3, RDW 13.2, Plt Count 111 L, MPV 10.4, Neut % (Auto) 64.5, Lymph % (Auto) 23.3, [place] % (Auto) 6.4, Eos % (Auto) 5.0, Baso % (Auto) 0.8, Neut # (Auto) 3.9, Lymph # (Auto) 1.4, [place] # (Auto) 0.4, Eos # (Auto) 0.3, Baso # (Auto) 0.1, D-Dimer 0.83 H, Sodium 133 L, Potassium 3.9, Chloride 101, Carbon Dioxide 23, Anion Gap 12.9, BUN 20 H, Creatinine 0.90, Estimated Creat Clear 47, Estimated GFR 61, Est GFR ( Amer) 74, Glucose 119 H, Calcium 9.1, Magnesium 1.8, Total Bilirubin 0.3, AST 34, ALT 26, Alkaline Phosphatase 128 H, Troponin I < 0.01, NT-Pro-B Natriuret Pep 73.6, Total Protein 7.3, Albumin 4.1, Globulin 3.2, Albumin/Globulin Ratio 1.3 07/02/23 18:37 07/02/23 18:37 Orders (Tests/Meds): ED MEDICATIONS Discontinued Medications Generic Name Dose Route Start Last Admin Trade Name Freq PRN Reason Stop Dose Admin Sodium Chloride 10 ml 07/02/23 18:51 Sodium Chloride 0.9% 10ml Flush Syringe IV 08/01/23 18:50 NEEDED PRN Maintain IV Site Trimethoprim/Sulfamethoxazole 1 each 07/02/23 20:25 07/02/23 20:44 Sulfa/Trimethoprim 1 Tablet PO 07/02/23 20:26 1 each ONCE ONE Administration ORDERS Category Date Time Status CXR --portable [XR chest portable] Stat Exams 07/02/23 18:34 Completed BNP [Brain Natriuretic Peptide] Stat Lab 07/02/23 18:37 Completed CBC w/Auto Diff [Complete Blood Count Auto Diff] Stat Lab 07/02/23 18:37 Completed CMP [Comprehensive Metabolic Panel] Stat Lab 07/02/23 18:37 Completed D-Dimer Stat Lab 07/02/23 18:37 Completed Magnesium Stat Lab 07/02/23 18:37 Completed Rapid PCR Covid and Flu A/B Stat Lab 07/02/23 18:25 Completed Troponin I Q3H Lab 07/02/23 18:37 Completed Urinalysis and Microscopic Stat Lab 07/02/23 18:20 Completed ECG initial [place] Routine Y 07/02/23 18:33 Completed ECG Data Tracing #1: I reviewed this ECG and interpreted as documented below: Sinus rhythm, rate of 78, no concerning ST changes or arrhythmias ECG initial impression date: 07/02/23 ECG initial impression time: 19:03 HEART Score History (anamnesis): Slightly suspicious ECG: Normal Age: >65 years Risk factors: Atherosclerosis history Troponin: </= normal limit HEART Score: 4 Medical Decision Narrative: 73-year-old female, history of COPD on intermittent oxygen at home, heart failure coronary artery disease presents with a wide variety of complaints including worsening shortness of breath at home, increased oxygen use, cold chills, chest pain earlier today. Patient also reports burning with urination starting today. History was obtained via conversation with patient, family, chart review. On arrival, patient is [afebrile, hemodynamically stable, satting appropriately on 2 L nasal cannula, alert, oriented x4, GCS 15], moving all extremities spontaneously. Full physical exam performed and significant for clear lungs bilaterally, bilateral lower extremity edema noted, intermittent cough Differential includes but is not limited to COVID, flu, ACS, heart failure, PE, COPD exacerbation. Workup initiated including CBC CMP D-dimer troponin mag COVID flu UA chest x-ray. On re-evaluation, patient [remains afebrile, HD stable.] Continues to sat appropriately on home oxygen, continues to be chest pain-free. Laboratory workup independently interpreted by me and significant for D-dimer 0.83, negative by years criteria. Initial troponin negative (1 will be sufficient given her episode of chest pain was this morning, several hours ago). Urine shows 3-5 WBCs and trace bacteria. In the setting of burning with urination, we will treat as UTI. Negative COVID flu. Imaging independently interpreted by me and significant for no focal opacity. See radiology read for full review of final results. EKG independently interpreted by me and significant for Sinus rhythm, rate of 78, no significant ST changes. Given patient history, exam and workup, patient's presentation most likely represents urinary tract infection, mild volume overload. Patient is on Lasix 40 daily and spironolactone. I instructed patient to take her Lasix twice a day for the next few days. Patient was given dose of Bactrim in ED and discharged with prescription for same. At the time of this discussion, patient began to complain about unilateral right leg pain which she says has been ongoing for the last few days. On exam she does have calf tenderness and popliteal tenderness, but no significant swelling or erythema compared to contralateral side. She has never had a blood clot before. She is relatively high risk for blood thinner usage given her age and fall risk. She is moderate risk by Wells criteria for DVT, in the setting of positive dimer she needs a DVT ultrasound. I cannot call an ultrasound to assess at this time given weekend night. I ordered an outpatient ultrasound with the plan that she will be called back in the morning and have the ultrasound performed and then be reassessed. I had extensive discussion with patient and family regarding blood thinner usage, given we will plan for ultrasound in the next 24 hours, we will hold off on initiating anticoagulation therapy at this time. Family in agreement. Patient discharged in stable condition with plan to come back for DVT ultrasound tomorrow. Procedures Risk/Benefits of Procedure(s) Were Explained: Yes Critical Care Critical Care Time Critical Care Time: No
[2023-07-02 19:00] VITALS: BP 126/76; PULSE 75; RESP 18; O2SAT 98
[2023-07-02 19:02] LABS: D-Dimer 0.83 ug/mL (0.0-0.5)
[2023-07-02 19:05] LABS: Bacteria,Urine Trace /lpf
[2023-07-02 19:13] LABS: Troponin I < 0.01 ng/ml (0.00-0.034)
[2023-07-02 19:17] LABS: NT Pro Brain Natriuretic Pep. 73.6 pg/mL (0-125)
[2023-07-02 19:30] VITALS: BP 126/65; PULSE 73; RESP 20; O2SAT 98
[2023-07-02 20:00] VITALS: BP 137/74; PULSE 71; RESP 18; O2SAT 97
[2023-07-02] MEDS: SULFA/TRIMETHOPRIM 1 TABLET 1 EACH PO (20:44)
[2023-07-02 20:55] VITALS: BP 134/75; PULSE 67; RESP 18; TEMP 36.6; O2SAT 97
== END 2023-07-02 21:01 | disposition home or self-care (01) ==
PROVIDERS: Emergency Provider Emergency Medicine; PCP Internal Medicine
DX: N39.0 Urinary tract infection, site not specified (principal); R06.02 Shortness of breath; E87.70 Fluid overload, unspecified; M79.604 Pain in right leg; J43.9 Emphysema, unspecified; E78.5 Hyperlipidemia, unspecified; I11.0 Hypertensive heart disease with heart failure; I50.9 Heart failure, unspecified; I25.10 Atherosclerotic heart disease of native coronary artery without angina pectoris
CPT/HCPCS: 71045; 80053; 81001; 83735; 83880; 84484; 85025; 85378; 87636; 93005; 99285

== ENCOUNTER 2023-07-03 15:58 | Outpatient (CLI) | payer MEDICARE, OTHER, SELFPAY ==
--- NOTE | 2023-07-03 | CA_ITS ---
FINAL REPORT TECHNIQUE: Multiple transverse and longitudinal images were performed of right the femoral-popliteal deep venous system with augmentation and compression maneuvers. CLINICAL HISTORY: Edema and pain x years FINDINGS: Right lower extremity duplex ultrasound demonstrates normal flow in the deep venous system. There is no abnormal echogenicity to suggest thrombus. There is normal compression and augmentation. IMPRESSION: No evidence of right DVT. Reviewed, Interpreted and Dictated by Scot Munoz III, MD Transcribed by Dagmar Carter Authenticated and [facility]
== END 2023-07-03 23:59 ==
LOC: RT 16:00
PROVIDERS: PCP Internal Medicine
DX: M79.604 Pain in right leg (principal); R60.0 Localized edema
CPT/HCPCS: 93971

== ENCOUNTER 2023-07-05 17:20 | Outpatient (CLI) | payer MEDICARE, OTHER, SELFPAY ==
--- NOTE | 2023-07-05 17:38 | XR_ITS ---
PROCEDURE INFORMATION: Exam: XR Chest Exam date and time: 07/05/2023 5:31 PM Age: 73 years old Clinical indication: Shortness of breath; Patient HX: SOA x4 days; Additional info: SOB TECHNIQUE: Imaging protocol: Radiologic exam of the chest. Views: 2 views. COMPARISON: CR XR CHEST PORTABLE 07/02/2023 6:43 PM FINDINGS: Lungs: Bibasilar atelectasis versus parenchymal scarring. The mild changes of peribronchial thickening. Pleural spaces: Unremarkable. No pleural effusion. No pneumothorax. Heart/Mediastinum: Unremarkable. No cardiomegaly. Bones/joints: Unremarkable. IMPRESSION: Findings compatible with bronchitis.
== END 2023-07-05 23:59 ==
LOC: RAD 17:25
PROVIDERS: PCP Internal Medicine; Visit Provider Internal Medicine Pulmonary Disease
DX: R06.02 Shortness of breath (principal)
CPT/HCPCS: 71046

== ENCOUNTER 2023-08-03 22:01 | Outpatient (CLI) | payer MEDICARE, OTHER, SELFPAY ==
[2023-08-03 18:57] LABS: Alanine Aminotransferase 18 U/L (12-78); Albumin Level 3.9 g/dl (3.5-5.0); Albumin/Globulin Ratio 1.4 (1.1-1.8); Alkaline Phosphatase 101 U/L (38-126); Anion Gap 10.4 mEq/L (5-15); Aspartate Amino Transferase 24 U/L (14-36); Bilirubin,Total 0.3 mg/dl (0.2-1.3); Blood Urea Nitrogen 23 mg/dl (7-17); Calcium 9.6 mg/dl (8.4-10.2); Carbon Dioxide 28 mmol/L (22.0-30.0); Chloride 102 mmol/L (98-107); Chol/HDL Ratio 5.6 (1-3.5); Cholesterol 245 mg/dl (140-200); Estimated Glomerular Filt Rate 49 ml/min (>60); GFR (African American) 59 ML/MIN (>60); Globulin 2.7 g/dL (1.3-3.2); Glucose 104 mg/dl (74-100); HDL Cholesterol 44 mg/dl (40-60); Potassium 4.4 mmoL/L (3.5-5.1); Sodium 136 mmol/L (136-145); Total Protein,Serum 6.6 g/dl (6.3-8.2); Triglycerides 216 mg/dl (30-150); VLDL Cholesterol 43 mg/dL (0-40)
[2023-08-03 19:13] LABS: Direct LDL Cholesterol 133.84 mg/dL (100-129)
[2023-08-03 19:16] LABS: 25-OH Vitamin D, Total 13.1 ng/mL (30-100)
[2023-08-03 19:24] LABS: Hemoglobin A1C 5.9 % (4.0-6.0)
[2023-08-03 19:29] LABS: Thyroid Stimulating Hormone 2.12 uIU/mL (0.465-4.68)
== END 2023-08-03 23:59 ==
LOC: LAB.DROPOF 22:01
PROVIDERS: PCP Nurse Practitioner Family; Visit Provider Nurse Practitioner Family
DX: E78.5 Hyperlipidemia, unspecified (principal); I10 Essential (primary) hypertension; E11.9 Type 2 diabetes mellitus without complications; R53.83 Other fatigue; E55.9 Vitamin D deficiency, unspecified; Z79.899 Other long term (current) drug therapy
CPT/HCPCS: 80053; 80061; 82306; 83036; 84443

== ENCOUNTER 2024-06-26 10:50 | Outpatient (CLI) | payer MEDICARE, OTHER, SELFPAY ==
[2024-06-26 19:35] LABS: Basophils % 0.6 % (0.1-2.0); Eosinophils # 0.1 K/mm3 (0.0-0.4); Eosinophils % 2.3 % (0.1-12.0); Hematocrit 38.4 % (37.0-47.0); Hemoglobin 12.7 g/dL (12.2-16.2); Lymphocytes # 1.1 K/mm3 (0.7-4.5); Lymphocytes % 21.9 % (10-50); Mean Corpuscular HGB Conc 33.1 g/dL (31.8-35.4); Mean Corpuscular Volume 90.8 fl (81-99); Mean Platelet Volume 12.7 fl (7.4-10.4); Monocytes # 0.4 K/mm3 (0.1-1.0); Monocytes % 8.4 % (1.7-9.3); Neutrophils # 3.5 K/mm3 (1.8-7.8); Neutrophils % 66.6 % (37.0-80.0); Platelet Count 116 K/mm3 (142-424); Red Blood Count 4.23 M/mm3 (4.20-5.40); Red Cell Distribution Width 11.9 % (11.5-17.5); White Blood Count 5.2 K/mm3 (4.8-10.8)
[2024-06-26 19:52] LABS: Alanine Aminotransferase 20 U/L (12-78); Alkaline Phosphatase 108 U/L (38-126); Aspartate Amino Transferase 26 U/L (14-36); Bilirubin,Total 0.5 mg/dl (0.2-1.3); Blood Urea Nitrogen 16 mg/dl (7-17); Calcium 9.8 mg/dl (8.4-10.2); Chloride 102 mmol/L (98-107); Chol/HDL Ratio 2.7 (1-3.5); Cholesterol 134 mg/dl (140-200); Estimated Glomerular Filt Rate 61 ml/min (>60); GFR (African American) 74 ML/MIN (>60); Glucose 102 mg/dl (74-100); HDL Cholesterol 50 mg/dl (40-60); Potassium 4.8 mmoL/L (3.5-5.1); Sodium 133 mmol/L (136-145); Total Protein,Serum 6.5 g/dl (6.3-8.2); Triglycerides 84 mg/dl (30-150); VLDL Cholesterol 17 mg/dL (0-40)
[2024-06-26 19:54] LABS: Albumin Level 4.1 g/dl (3.5-5.0); Albumin/Globulin Ratio 1.7 (1.1-1.8); Anion Gap 10.8 mEq/L (5-15); Carbon Dioxide 25 mmol/L (22.0-30.0); Globulin 2.4 g/dL (1.3-3.2)
[2024-06-26 20:04] LABS: Direct LDL Cholesterol 64.47 mg/dL (100-129)
[2024-06-26 20:13] LABS: 25-OH Vitamin D, Total 73.3 ng/mL (30-100)
[2024-06-26 20:24] LABS: Thyroid Stimulating Hormone 2.71 uIU/mL (0.465-4.68)
== END 2024-06-26 23:59 | disposition home or self-care (01) ==
LOC: LAB.DROPOF 06-28 12:40
PROVIDERS: PCP Nurse Practitioner Family; Visit Provider Nurse Practitioner Family
DX: E55.9 Vitamin D deficiency, unspecified (principal); I10 Essential (primary) hypertension; J44.9 Chronic obstructive pulmonary disease, unspecified; E78.5 Hyperlipidemia, unspecified; E66.9 Obesity, unspecified; Z68.41 Body mass index [BMI] 40.0-44.9, adult
CPT/HCPCS: 80053; 80061; 82306; 84443; 85025

== ENCOUNTER 2024-07-10 11:48 | Outpatient (CLI) | payer MEDICARE, OTHER, SELFPAY ==
--- NOTE | 2024-07-10 | CA_ITS ---
APPROVED REPORT Exam: Pharmacologic Technologist: Hali Willis Ht: 5 ft 6 in Wt: 260 lbs BSA: 2.24 m2 HR: 71 bpm BP: 120/70 mmHg Stress Test Details Test: Lexiscan HR Resting HR: 71 bpm Max Heart Rate (APMHR): 146 bpm Max HR Achieved: 84 bpm Target HR (85% APMHR): 124 bpm % of APMHR: 58 Recovery HR: 72 bpm BP Resting BP: 120.0/70.0 mmHg Max BP: 129.0/70.0 mmHg Recovery BP: 113.0/48.0 mmHg ECG Resting ECG: Sinus rhythm Stress ECG Conclusion Symptoms: Chest pain, tightmess, pressure, dyspnea Arrhythmias/Ectopy: PAC ST-T Changes: Less than [address] depression. Conclusion: EKG portion unremarkable due to Lexiscan infusion. Electronically signed by : Lois Fong MD 07/11/2024 12:31:46
--- NOTE | 2024-07-10 11:52 | NM_ITS ---
APPROVED REPORT Exam: Nuclear Stress Test Indication: chest pain..sob Patient Location: Outpatient Stress Tech: Hali Willis NE Tech:NIKKIE Prado RT(R)(N) Ht: 5 ft 6 in Wt: 200 lbs Bra Size: c HR: 73 bpm BP: 120/70 mmHg BSA: 2.00 m2 TID: 1.25 BMI: 32.2 History: chest pain..sob Procedure: Patient received 0.4 mg of intravenous Lexiscan, resting heart rate 73 bpm, resting blood pressure 120/70 mmHg, with Lexiscan maximum heart rate achieved was 88 bpm which is 85 % of the maximum predicted heart rate and blood pressure was 129/70 mmHg. With Lexiscan, patient denied any complaint of chest pain. The patient was not able to lay on her belly for prone images. Cardiac Stress and Resting SPECT Images: Cardiac Stress and Resting SPECT images were obtained using technetium 99m Myoview 32.3 mCi stress and 10.55 mCi at rest. The patient could not lie on her abdomen. Therefore, prone stress imaging could not be performed. This may affect diagnostic interpretation of the study findings. Resting and stress imaging in supine positions demonstrate no evidence of fixed or reversible perfusion defects. There is increase in transient ischemic dilatation ratio (TID 1.25), suggestive of possible multivessel disease or balanced ischemia. Gated imaging demonstrates normal global and regional LV systolic function. LVEF is calculated at > 75%. Conclusion: No evidence of fixed or reversible perfusion defects. There is increase in transient ischemic dilatation ratio (TID 1.25), suggestive of possible multivessel disease or balanced ischemia. Gated imaging demonstrates normal global and regional LV systolic function. LVEF is calculated at > 75%. Electronically signed by : Lois Fong MD 07/11/2024 12:22:59
--- NOTE | 2024-07-10 12:38 | CA_ITS ---
APPROVED REPORT EXAM: Comprehensive 2D, Doppler, and color-flow Echocardiogram Dividend Clerk: DONNIE Sullivan, RVS Ht: 5 ft 6 in Wt: 260lbs BSA: 2.24 BP: 139/83 mmHg Indications: CP, SOB, Home O2, COPD, CAD-stent, MAXIME, Obesity, GERD, HTN, HLD Echo Enhancing Agent Comments: Poor/ limited acoustic windows throughout exam due to lumg impedence/body habitus. 2D Dimensions IVSd 0.99 cm LVEF (Visual) 40.30 % PWd 0.93 cm LA Volume 65.30 mL LVDd 4.69 cm LA Volume Index 29.177666 mL/m2 (M/F) 16-34 LVDs 3.77 cm Left Atrium 4.58 cm M-Mode Dimensions LA Diam 4.70 cm (1.9-4.0) LVDd 5.00 cm (3.5-5.7) LVDs 2.89 cm (3.5-5.7) EF (Teich) 73.00% EPSs 0.36 cm FS 42.20% EDV (Teich) 118.20 mL TAPSE 2.13 (<1.7) ESV (Teich) 31.90 mL LV Diastology E Decel Time 193 (160-240 msec) E/A Ratio 1.14 MED A' 9.30 cm/s LAT A' 8.60 cm/s Aortic Valve KOLTON Index 1.21 cm2/m2 AoV Peak Antonio. 161.0 (50-130 cm/s) AO Peak GR. 10.40 mmHg AO Mean GR. 5.10 (<5 mmHg) AO VTI 29.7 (18-25 cm) KOLTON (VTI) 2.76 (2.5-4.5 cm2) Mitral Valve MV A Velocity 84.0 (40-130 cm/s) E/A Ratio 1.14 Pulmonary Valve PV Peak Velocity 103.0 (50-150 cm/s) WA End VMAX 147.0 cm/s Left Ventricle The left ventricle is normal size. The left ventricular systolic function is normal. The left ventricular ejection fraction is within the normal range. There is increased LV wall thickness. There is normal LV segmental wall motion. The left ventricular diastolic function is normal. LVEF is 60%. Right Ventricle The right ventricle is normal size. The right ventricular systolic function is normal. Atria The left atrium size is normal. The right atrium size is normal. There is no Doppler evidence of interatrial shunt. Aortic Valve The aortic valve is mildly thickened. There is no aortic valvular stenosis. No aortic regurgitation is present. Mitral Valve The mitral valve is normal in structure. No evidence of mitral valve stenosis. Trace mitral regurgitation. Tricuspid Valve Tricuspid valve is grossly normal in structure and function. Trace tricuspid regurgitation. There is insufficient TR jet to estimate RVSP. Pulmonic Valve The pulmonary valve is normal in structure. Trace pulmonic regurgitation. Great Vessels The aortic root is normal in size. The ascending aorta is not well-visualized. IVC is normal in size and collapses >50% with inspiration. Pericardium There is no pericardial effusion. Other Information Study Quality: Fair Conclusion Normal biventricular systolic function. No significant valvular stenosis or regurgitation. Electronically signed by : Lois Fong MD 07/20/2024 23:29:56
[2024-07-10] MEDS: ISOTOPE MYOVIEW (PER STUDY) 1 DOSE IV (13:29)
[2024-07-10] MEDS: SODIUM CHLORIDE 0.9% 10ML SYR (RAD ONLY) 10 ML IV ×2 (13:29)
[2024-07-10] MEDS: REGADENOSON 0.4MG/5ML SYRINGE 0.4 MG IV (13:29)
== END 2024-07-10 23:59 | disposition home or self-care (01) ==
LOC: RAD 11:48
PROVIDERS: PCP Nurse Practitioner Family; Visit Provider Nurse Practitioner Family
DX: R06.09 Other forms of dyspnea (principal); R07.89 Other chest pain; I25.10 Atherosclerotic heart disease of native coronary artery without angina pectoris; Z95.5 Presence of coronary angioplasty implant and graft
CPT/HCPCS: 78452; 93017; 93018; 93306; A9502; J2785

== ENCOUNTER 2024-08-06 10:38 | Outpatient (CLI) | payer MEDICARE, OTHER, SELFPAY ==
--- NOTE | 2024-08-06 11:06 | XR_ITS ---
FINAL REPORT CLINICAL HISTORY: Abnl Myoview, cp, dyspnea, COMPARISON: None FINDINGS: No acute pulmonary density is evident. There is no evidence of effusion or other pleural disease. The mediastinum has a normal appearance. A monitoring device obscures the right midlung. The cardiac silhouette is unremarkable. IMPRESSION: Unremarkable chest exam. Reviewed, Interpreted and Dictated by Jenny Stanford MD Transcribed by Vanessa Trujillo Authenticated and [facility]
== END 2024-08-06 23:59 | disposition home or self-care (01) ==
PROVIDERS: PCP Nurse Practitioner Family; Visit Provider Nurse Practitioner Family
DX: I51.89 Other ill-defined heart diseases (principal); R07.89 Other chest pain; R06.09 Other forms of dyspnea; R93.1 Abnormal findings on diagnostic imaging of heart and coronary circulation; J44.9 Chronic obstructive pulmonary disease, unspecified
CPT/HCPCS: 71046; 93270

== ENCOUNTER 2024-08-07 12:39 | Outpatient (CLI) | payer MEDICARE, OTHER, SELFPAY | END 2024-08-07 23:59 | disposition home or self-care (01) | LOC: RT 12:40 | PROVIDERS: PCP Nurse Practitioner Family; Visit Provider Nurse Practitioner Family | DX: R06.09 Other forms of dyspnea (principal) | CPT/HCPCS: 94060; 94726; 94729 ==

== ENCOUNTER 2024-08-15 11:51 | Outpatient (CLI) | payer MEDICARE, OTHER, SELFPAY ==
--- NOTE | 2024-08-15 11:52 | CT_ITS ---
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 A noncontrast coronary calcium scan was performed. A CT attenuation threshold of 130 Hounsfield units (HU) was used for the detection of calcium in contiguous voxels of 1 sq mm in area to be counted as individual lesions. Bolus tracking in the ascending aorta with a threshold of 180 HU was performed. Immediately afterwards, ECG synchronized cardiac CT was then performed from the cardiac base to apex using retrospective gating with ECG tube current modulation. A total of 85 mL of Isovue 370 mg/mL contrast medium was administered at 5 mL/sec followed by a saline flush using a biphasic injection protocol. A tube voltage of 120 KVp was used. The patient received the following medications prior to the cardiac CT. 50 mg of oral metoprolol 15 mg of oral ivabradine The average heart rate at the time of acquisition was 55 bpm and regular. Image Reconstruction Transaxial images were reconstructed at 0.67 mm slide thickness. Data was reviewed interactively on an advanced workstation capable of 2 and 3-dimensional displays in all conventional reconstruction formats, including multiplanar reformations, maximum intensity projections, curved multiplanar reformations, and volume rendered reconstructions. When applicable, selected routine images describing the relevant coronary anatomy and pathology were saved and sent to PACS. Complications None Technical Quality Overall image quality was good. Coronary artery opacification was adequate. Total DLP (Dose-Length Product) is 2734.2 mGy-cm. The reported value represents the total of one or more individual components during the CT acquisition of this date and at this time, and as such, the same value may appear in more than one CT report depending on the interpreting/reporting physicians. COMPARISON None FINDINGS CT Coronary Calcium Scoring LMA (Left Main Artery) = 0 LAD (Left Anterior Descending) = 129 LCX (Left Coronary Circumflex) = 20 RCA (Right Coronary Artery) = 0 Total Calcium Score = 149 using the AJ-130 method. The observed calcium score of 149 is at 69th percentile for subjects of the same age, sex, and race/ethnicity. The interpretation of the calcium heart score is based on the following continuum*: 0 = no calcified plaque detected (risk of coronary artery disease is very low ??? less than 5%) 1-10 = calcium detected in extremely minimal levels (risk of coronary diseases is still low ??? less than 10%) 11-100 = mild levels of plaque detected with certainty (mild or minimal narrowing of heart arteries is likely) 101-400 = definite,at least moderate levels of plaque detected (relatively high risk of a heart attack within 3-5 years) >401-999 = extensive levels of plaque detected (high risk of heart attack, high levels of vascular disease are present, high likelihood of at least one significant coronary narrowing) *The calcium heart score quantifies the burden of coronary calcification/plaque in the coronary arteries. The calcium heart score is not able to evaluate the presence or burden of non-calcified (i.e. soft) plaque. There is also calcification in the aortic valve, mitral annulus, and the ascending and descending thoracic aorta. Coronary CT Angiography The coronary arterial system is left dominant. Quantitative Stenosis Grading: Left Main (LM): The left main originates normally from the left sinus of Valsalva. The LM bifurcates into the left anterior descending artery and left circumflex artery. The LM is patent with no evidence of atherosclerosis. Left Anterior Descending (LAD) and Diagonal Branches: The LAD gives off 2 diagonal branch(es). There is mixed calcified/noncalcified plaque in the proximal and mid LAD segments, with up to 25-49% luminal stenosis. There is no evidence of LAD-myocardial bridge. Left Circumflex (LCX) and Obtuse Marginals (OM): The LCX gives off 2 Obtuse Marginal (OM) branch(es). There is mixed calcified/noncalcified plaque in the proximal LCx segment, with < 25% luminal stenosis. Right Coronary Artery (RCA): The RCA originates normally from the right sinus of Valsalva. The RCA is a small caliber vessel. The RCA and its branches are patent with no evidence of atherosclerosis. Non-Coronary Cardiac Findings: Analysis of the left ventricular (LV) structure and function was performed after 3-D reconstruction of the LV from axial images, with user-corrected automatic contouring for assessment of LV volumes and user-defined reconstruction from oblique planes for measurement of 3-D cardiac structure and function. -The left ventricle systolic function is normal. -There is no left atrial appendage filling defect. Two right pulmonary veins and two left pulmonary veins drain normally into the left atrium. -No pericardial thickening or calcification. -Central and branch pulmonary arteries in the [id number] are unremarkable. -Thoracic aorta within the visualized thoracic aortic-branches in the [id number] is unremarkable. Extracardiac Structures No significant extra-cardiac findings. Note, however, that this study is focused on the cardiac findings. IMPRESSION -Presence of coronary calcification with an Agatston score = 149 using the AJ-130 method. -The observed calcium score of 149 is at 69th percentile for subjects of the same age, sex, and race/ethnicity. -Mild, non-obstructive coronary atherosclerosis in the proximal/mid LAD segment, with no evidence of significant flow-limiting atherosclerosis of the coronary arteries. -CAD-RADS 2. Management recommendations per ACC/AHA guidelines*, as clinically appropriate. *Recommendations: CAD RADS 0: Reassurance. Consider non-atherosclerotic causes of chest pain. CAD RADS 1: Consider non-atherosclerotic causes of chest pain. Consider preventive therapy and risk factor modification. CAD RADS 2: Consider non-atherosclerotic causes of chest pain. Consider preventive therapy and risk factor modification, particularly for patients with nonobstructive plaque in multiple segments. CAD RADS 3: Consider further functional testing. Consider symptom-guided anti-ischemic and preventive pharmacotherapy as well as risk factor modification per published guideline statements. CAD RADS 4A: Consider further functional testing or invasive coronary angiography with revascularization per published guideline statements. Consider symptom-guided anti-ischemic and preventive pharmacotherapy as well as risk factor modification per published guideline statements. CAD RADS 4B: Invasive coronary angiography recommended with revascularization per published guideline statements. Consider symptom-guided anti-ischemic and preventive pharmacotherapy as well as risk factor modification per published guideline statements. CAD RADS 5: Consider invasive angiography and/or viability assessment with revascularization per published guideline statements. Consider symptom-guided anti-ischemic and preventive pharmacotherapy as well as risk factor modification per published guideline statements. CRITICAL RESULT None COMMUNICATION Per this written report The coronary and cardiac findings of this CCTA were reviewed, reported, and signed by Esteban Fong MD ([employer]) Conclusion Electronically signed by : Lois Fong MD 08/16/2024 12:08:47
[2024-08-15 12:00] VITALS: BMI 42.6
[2024-08-15 12:07] VITALS: BP 132/59; PULSE 76; RESP 20; TEMP 36.5; O2SAT 97
[2024-08-15] MEDS: IVABRADINE HCL 7.5MG TABLET PO (12:16)
[2024-08-15] MEDS: METOPROLOL TARTRATE 50MG TABLET PO (12:17)
[2024-08-15 12:24] LABS: Chloride 97 mmol/L (98-107)
[2024-08-15 12:25] LABS: Potassium 4.2 mmoL/L (3.5-5.1); Sodium 136 mmol/L (136-145)
[2024-08-15 12:28] LABS: Anion Gap 14.2 mEq/L (5-15); Blood Urea Nitrogen 19 mg/dl (7-17); Calcium 9.7 mg/dl (8.4-10.2); Carbon Dioxide 29 mmol/L (22.0-30.0); Creatinine Clearance Estimated 42 mL/min (50-200); Estimated Glomerular Filt Rate 49 ml/min (>60); GFR (African American) 59 ML/MIN (>60); Glucose 110 mg/dl (74-100)
[2024-08-15 13:16] VITALS: BP 93/52; PULSE 55; RESP 18
[2024-08-15 13:19] VITALS: BP 95/50; PULSE 52; RESP 18; O2SAT 99
[2024-08-15 13:22] VITALS: BP 93/49; PULSE 58; RESP 18; O2SAT 99
[2024-08-15] MEDS: SODIUM CHLORIDE 0.9% 10ML SYR (RAD ONLY) 10 ML IV (13:22)
[2024-08-15] MEDS: 0.9 % SODIUM CHLORIDE 50 ML VIAL IV (13:22)
[2024-08-15] MEDS: IOPAMIDOL-370 (76%);100ML BOTTLE 85 ML IV (13:23)
--- NOTE | 2024-08-15 14:04 | PC.NURSE ---
patient BP running 93/49 during CTA procedure. patient received 50mg of metoprolol and 15mg ivabradine PO per protocol. Sandy Lopez APRN notified and ordered to hold lisinopril dose tonight and monitor BP.
== END 2024-08-15 13:48 | disposition home or self-care (01) ==
PROVIDERS: PCP Nurse Practitioner Family; Visit Provider Nurse Practitioner Family
DX: R94.30 Abnormal result of cardiovascular function study, unspecified (principal); R07.89 Other chest pain; R06.02 Shortness of breath; Z72.0 Tobacco use; R06.09 Other forms of dyspnea; I10 Essential (primary) hypertension; E78.2 Mixed hyperlipidemia; J44.9 Chronic obstructive pulmonary disease, unspecified
CPT/HCPCS: 75574; 80048; Q9967

== ENCOUNTER 2024-09-08 10:00 | Emergency (ER) | payer MEDICARE, OTHER, SELFPAY ==
[2024-09-08] VITALS (10 sets, daily range): BP systolic 94–112; BP diastolic 51–59; PULSE 59–71; RESP 14–20; TEMP 36.6–36.7; O2SAT 96–100; BMI 42.6
--- NOTE | 2024-09-08 10:04 | ECG_ITS ---
APPROVED REPORT Exam: Resting ECG HR:75 bpm ECG Measurements Heart Rate 75 AXES NV 158 P 47 QRSd 101 QRS 3 QT 323 T 76 QTc 352 Conclusion SINUS RHYTHM WITH OCCASIONAL SUPRAVENTRICULAR PREMATURE COMPLEXES No STEMI Electronically signed by : SAMIR GARCIA, 09/08/2024 15:49:42
--- NOTE | 2024-09-08 10:21 | XR_ITS ---
PROCEDURE INFORMATION: Exam: XR Chest Exam date and time: 09/08/2024 10:20 AM Age: 74 years old Clinical indication: Pain; Chest pressure; Additional info: Chest pain TECHNIQUE: Imaging protocol: Radiologic exam of the chest. Views: 2 views. COMPARISON: CR XR CHEST 2V 08/06/2024 11:24 AM FINDINGS: Lungs: Unremarkable. No consolidation. Pleural spaces: Unremarkable. No pleural effusion. No pneumothorax. Heart/Mediastinum: Cardiomegaly Bones/joints: Unremarkable. IMPRESSION: No acute process
--- NOTE | 2024-09-08 10:25 | PC.NURSE ---
can in respiratory is aware of vbg
[2024-09-08 10:30] LABS: Basophils % 0.8 % (0.1-2.0); Eosinophils # 0.2 K/mm3 (0.0-0.4); Eosinophils % 4.5 % (0.1-12.0); Hematocrit 38.1 % (37.0-47.0); Hemoglobin 12.7 g/dL (12.2-16.2); Lymphocytes # 1.2 K/mm3 (0.7-4.5); Lymphocytes % 23.3 % (10-50); Mean Corpuscular HGB Conc 33.3 g/dL (31.8-35.4); Mean Corpuscular Hemoglobin 30.5 pg (27.0-31.2); Mean Corpuscular Volume 91.4 fl (81-99); Mean Platelet Volume 12.2 fl (7.4-10.4); Monocytes # 0.5 K/mm3 (0.1-1.0); Monocytes % 8.9 % (1.7-9.3); Neutrophils # 3.2 K/mm3 (1.8-7.8); Neutrophils % 62.1 % (37.0-80.0); Platelet Count 96 K/mm3 (142-424); Red Blood Count 4.17 M/mm3 (4.20-5.40); Red Cell Distribution Width 12.1 % (11.5-17.5); White Blood Count 5.2 K/mm3 (4.8-10.8)
[2024-09-08 10:31] LABS: Lactate Venous 2.5 mmol/L (0.4-2.0); VBG Base Excess -3.2 mmol/L (-2.4-2.3); VBG HCO3 21.1 mmol/L (23-30); VBG PCO2 32.5 mmol/L (35-51); VBG PH 7.43 mmol/L (7.31-7.41); VBG PO2 87.1 mmol/L (28-40); VBG Total CO2 22.1 mmol/L (23-27)
[2024-09-08 10:36] LABS: Alanine Aminotransferase 27 U/L (12-78); Albumin Level 4.6 g/dl (3.5-5.0); Albumin/Globulin Ratio 1.8 (1.1-1.8); Alkaline Phosphatase 92 U/L (38-126); Aspartate Amino Transferase 32 U/L (14-36); Bilirubin,Total 0.6 mg/dl (0.2-1.3); Blood Urea Nitrogen 16 mg/dl (7-17); Calcium 9.7 mg/dl (8.4-10.2); Carbon Dioxide 22 mmol/L (22.0-30.0); Chloride 105 mmol/L (98-107); Estimated Glomerular Filt Rate 61 ml/min (>60); GFR (African American) 74 ML/MIN (>60); Globulin 2.6 g/dL (1.3-3.2); Glucose 127 mg/dl (74-100); Lipase 62 U/L (23-300); Sodium 137 mmol/L (136-145); Total Protein,Serum 7.2 g/dl (6.3-8.2)
[2024-09-08 10:41] LABS: D-Dimer 1.37 ug/mL (0.0-0.5)
[2024-09-08] MEDS: BELLADONNA ALKALOIDS 60 ML ML PO (10:42)
[2024-09-08] MEDS: ASPIRIN 81MG CHEWABLE TABLET 324 MG PO (10:43)
[2024-09-08] MEDS: ACETAMINOPHEN 1,000MG/100ML VIAL 1000 MG IV (10:43)
--- NOTE | 2024-09-08 10:46 | CT_ITS ---
PROCEDURE INFORMATION: Exam: CTA Chest With Contrast Exam date and time: 09/08/2024 11:15 AM Age: 74 years old Clinical indication: Other: Chest/abdominal pain, elevated d-dimer TECHNIQUE: Imaging protocol: Computed tomographic angiography of the chest with contrast. Exam focused on the arteries. 3D rendering (Not supervised by radiologist): MIP and/or 3D reconstructed images were created by the technologist. Radiation optimization: All CT scans at this facility use at least one of these dose optimization techniques: automated exposure control; mA and/or kV adjustment per patient size (includes targeted exams where dose is matched to clinical indication); or iterative reconstruction. Contrast material: ISO 370; Contrast volume: 70 ml; Contrast route: INTRAVENOUS (IV); COMPARISON: CT CHEST W CON 02/21/2023 1:17 PM FINDINGS: Pulmonary arteries: No evidence of pulmonary embolus to the segmental level. Aorta: No aneurysm of the aorta. No dissection of the aorta. Lungs: Unremarkable. No consolidation. No masses. Pleural spaces: Unremarkable. No pneumothorax. No pleural effusion. Heart: Unremarkable. No cardiomegaly. No pericardial effusion. Coronary arteries: Coronary artery calcifications may indicate coronary artery disease. Lymph nodes: Unremarkable. No enlarged lymph nodes. Diaphragm: Moderate hiatal hernia Bones/joints: Unremarkable. No acute fracture. Soft tissues: Unremarkable. IMPRESSION: 1. No evidence of pulmonary embolus to the segmental level. 2. No aneurysm of the aorta. 3. No dissection of the aorta.
--- NOTE | 2024-09-08 10:46 | CT_ITS ---
PROCEDURE INFORMATION: Exam: CT Abdomen And Pelvis With Contrast Exam date and time: 09/08/2024 11:15 AM Age: 74 years old Clinical indication: Other: Chest/abdominal pain, elevated d-dimer TECHNIQUE: Imaging protocol: Computed tomography of the abdomen and pelvis with contrast. 3D rendering (Not supervised by radiologist): MIP and/or 3D reconstructed images were created by the technologist. Radiation optimization: All CT scans at this facility use at least one of these dose optimization techniques: automated exposure control; mA and/or kV adjustment per patient size (includes targeted exams where dose is matched to clinical indication); or iterative reconstruction. Contrast material: ISOVUE; Contrast volume: 70 ml; Contrast route: IV; COMPARISON: CT CHEST W CON 02/21/2023 1:17 PM FINDINGS: Liver: Normal. No mass. Gallbladder and biliary ducts: Normal gallbladder Pancreas: Normal. No ductal dilation. Spleen: The spleen demonstrates punctate calcifications, consistent with remote granulomatous organism exposure. Adrenal glands: Normal. No mass. Kidneys and ureters: Normal. No hydronephrosis. Stomach and bowel: Diverticulosis of the rectosigmoid. No diverticulitis . No obstruction. Appendix: No evidence of appendicitis. Intraperitoneal space: Unremarkable. No free air. No significant fluid collection. 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 Lymph nodes: Unremarkable. No enlarged lymph nodes. Urinary bladder: Unremarkable as visualized. Reproductive: Surgical resection of the uterus Bones/joints: Unremarkable. No acute fracture. Soft tissues: Unremarkable. IMPRESSION: No acute process
--- NOTE | 2024-09-08 10:47 | HMH.EDGENADL ---
Discharge Plan Disposition Patient Disposition: Home, Self-Care Condition: Good Prescriptions Prescriptions: No Action aspirin 81 mg tablet,delayed release (DR/EC) 81 mg PO DAILY Qty: 90 0RF fluticasone propionate [Flonase Allergy Relief] 50 mcg/actuation spray,suspension 1 spray intranasal BID PRN (Reason: allergy symptoms) 90 Days Qty: 16 3RF Rx Instructions: administer into each nostril furosemide 40 mg tablet See Rx Instructions .ROUTE .COMPLEX Qty: 30 2RF Dose Instruction: TAKE ONE TABLET BY MOUTH ONCE A DAY Rx Instructions: TAKE ONE TABLET BY MOUTH ONCE A DAY buspirone 10 mg tablet See Rx Instructions .ROUTE .COMPLEX Qty: 90 0RF Dose Instruction: TAKE ONE TABLET BY MOUTH 3 TIMES A DAY FOR ANXIETY Rx Instructions: TAKE ONE TABLET BY MOUTH 3 TIMES A DAY FOR ANXIETY spironolactone 25 mg tablet See Rx Instructions .ROUTE .COMPLEX Qty: 180 3RF Dose Instruction: TAKE 1 TABLET BY MOUTH 2 TIMES A DAY FOR FLUID Rx Instructions: TAKE 1 TABLET BY MOUTH 2 TIMES A DAY FOR FLUID budesonide-formoterol [Breyna] 160-4.5 mcg/actuation HFA aerosol inhaler See Rx Instructions .ROUTE .COMPLEX Qty: 10.3 2RF Dose Instruction: INHALE 2 PUFFS BY MOUTH 2 TIMES A DAY FOR DYSPNEA Rx Instructions: INHALE 2 PUFFS BY MOUTH 2 TIMES A DAY FOR DYSPNEA atorvastatin 40 mg tablet 40 mg .ROUTE .COMPLEX Qty: 30 3RF Rx Instructions: 40 mg; venlafaxine 37.5 mg tablet 37.5 mg .ROUTE .COMPLEX Qty: 30 3RF Rx Instructions: 37.5 mg; verapamil 80 mg tablet 80 mg .ROUTE .COMPLEX Qty: 30 3RF Rx Instructions: 80 mg; lisinopril 20 mg tablet See Rx Instructions .ROUTE .COMPLEX Qty: 90 2RF Dose Instruction: TAKE ONE TABLET BY MOUTH ONCE A DAY FOR HYPERTENSION Rx Instructions: TAKE ONE TABLET BY MOUTH ONCE A DAY FOR HYPERTENSION pantoprazole 40 mg tablet,delayed release (DR/EC) See Rx Instructions .ROUTE .COMPLEX Qty: 90 2RF Dose Instruction: TAKE ONE TABLET BY MOUTH ONCE A DAY Rx Instructions: TAKE ONE TABLET BY MOUTH ONCE A DAY trazodone 100 mg tablet See Rx Instructions .ROUTE .COMPLEX Qty: 90 2RF Dose Instruction: TAKE ONE TABLET BY MOUTH AT BEDTIME NEEDED FOR INSOMNIA Rx Instructions: TAKE ONE TABLET BY MOUTH AT BEDTIME NEEDED FOR INSOMNIA escitalopram oxalate 20 mg tablet See Rx Instructions .ROUTE .COMPLEX Qty: 90 2RF Dose Instruction: TAKE ONE TABLET BY MOUTH ONCE A DAY Rx Instructions: TAKE ONE TABLET BY MOUTH ONCE A DAY cholecalciferol (vitamin D3) 1,250 mcg (50,000 unit) capsule See Rx Instructions .ROUTE .COMPLEX Qty: 7 2RF Dose Instruction: TAKE ONE CAPSULE BY MOUTH ONCE WEEKLY Rx Instructions: TAKE ONE CAPSULE BY MOUTH ONCE WEEKLY hydroxyzine pamoate 25 mg capsule See Rx Instructions .ROUTE .COMPLEX Qty: 90 3RF Dose Instruction: TAKE ONE CAPSULE BY MOUTH AT BEDTIME Rx Instructions: TAKE ONE CAPSULE BY MOUTH AT BEDTIME cetirizine 10 mg tablet See Rx Instructions .ROUTE .COMPLEX Rx Instructions: TAKE ONE TABLET BY MOUTH ONCE A DAY ipratropium-albuterol 0.5 mg-3 mg(2.5 mg base)/3 mL solution for nebulization 3 ml INHALATION Q6HP PRN (Reason: Dyspnea) albuterol sulfate [Ventolin HFA] 90 mcg/actuation HFA aerosol inhaler 90 mcg INHALATION Q6HP PRN (Reason: Dyspnea) Referrals Follow up/Referrals: Chet Dupont APRN [Primary Care Provider] - See instructions Activity Restrictions/Add. Instructions Additional Instructions/Restrictions: You were evaluated in the emergency department today. At this time, your workup is very reassuring. 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 Chest pain can also be related to esophageal or gastric issues. Please follow-up with GI for assessment of this as well. Return to the emergency department for new or worsening symptoms. Clinical Impressions Clinical Impression: Chest pain Instructions Patient Instructions: DI for Atypical Chest Pain Print Language Print Language: [place] Verde[place] Discharge ED Provider: Rosmery Starr General Adult HPI General Chief complaint: Chest Pain Stated complaint: cp Time Seen by Provider: 09/08/24 10:10 History of Present Illness HPI narrative: This patient is a 74-year-old female with a history of tobacco use, pulmonary emphysema on home oxygen as needed at home, hypertension, hyperlipidemia, GERD, CAD, and anxiety presenting to the emergency department for evaluation with concern for chest pain. Patient states that she has been having intermittent chest pain for the last several months for which she has been following up outpatient with cardiology and with pulmonology. She notes she was diagnosed with emphysema and given oxygen which is new, and this has made her very anxious. She states that she had worsening of the chest pain around 830 this morning, prompting ED evaluation today. She notes that it is midsternal going down her left arm and she has tingling of her left arm as well. She also notes some abdominal pain and nausea. No other concerns or complaints noted at this time. She notes she has had extensive workup with cardiology, including a cath, and she did not require stents. Related Data Home Medications ?Medication ?Instructions ?Recorded ?Confirmed cetirizine 10 mg tablet See Rx Instructions .Route 07/30/22 08/28/24 .COMPLEX allergies albuterol sulfate 90 mcg/actuation 90 mcg inhalation Q6HP PRN Dyspnea 04/02/23 08/28/24 aerosol inhaler (Ventolin HFA) ipratropium 0.5 mg-albuterol 3 mg 3 ml inhalation Q6HP PRN Dyspnea 04/02/23 08/28/24 (2.5 mg base)/3 mL nebulization soln Previous Rx's ?Medication ?Instructions ?Recorded aspirin 81 mg tablet,delayed 81 mg PO DAILY heart [employer] #90 11/21/19 release tabs buspirone 10 mg tablet See Rx Instructions .Route 05/06/23 .COMPLEX #90 tabs spironolactone 25 mg tablet See Rx Instructions .Route 01/30/24 .COMPLEX #180 tabs budesonide-formoterol HFA 160 See Rx Instructions .Route 04/24/24 mcg-4.5 mcg/actuation aerosol .COMPLEX #10.3 grams inhaler (Breyna) atorvastatin 40 mg tablet 40 mg .Route .COMPLEX #30 tabs 07/04/24 venlafaxine 37.5 mg tablet 37.5 mg .Route .COMPLEX #30 tabs 07/04/24 verapamil 80 mg tablet 80 mg .Route .COMPLEX #30 tabs 07/04/24 furosemide 40 mg tablet See Rx Instructions .Route 07/06/24 .COMPLEX #30 tabs cholecalciferol (vitamin D3) 1,250 See Rx Instructions .Route 08/02/24 mcg (50,000 unit) capsule .COMPLEX #7 caps escitalopram oxalate 20 mg tablet See Rx Instructions .Route 08/02/24 .COMPLEX #90 tabs hydroxyzine pamoate 25 mg capsule See Rx Instructions .Route 08/02/24 .COMPLEX #90 caps lisinopril 20 mg tablet See Rx Instructions .Route 08/02/24 .COMPLEX #90 tabs pantoprazole 40 mg tablet,delayed See Rx Instructions .Route 08/02/24 release .COMPLEX #90 tabs trazodone 100 mg tablet See Rx Instructions .Route 08/02/24 .COMPLEX #90 tabs fluticasone propionate 50 1 spray intranasal BID PRN allergy 08/22/24 mcg/actuation nasal symptoms 90 days #16 grams spray,suspension (Flonase Allergy Relief) Allergies Allergy/AdvReac Type Severity Reaction Status Date / Time No Known Allergies Allergy Verified 09/08/24 11:03 [facility] Disclaimer: The information contained in this section may have been updated after the patient was seen, as this information can be updated by other users. Medical History CAD (coronary artery disease) Palpitations Abnormal nuclear cardiac imaging test Anxiety Pulmonary emphysema Asthma Hiatal hernia GERD (gastroesophageal reflux disease) Dyspnea on exertion On statin therapy Restless sleeper Daytime somnolence Chronic obstructive pulmonary disease Hyperlipidemia Hypertensive disorder Surgical History History of esophagogastroduodenoscopy (EGD) History of cardiac cath Hx of heart artery stent History of breast surgery History of abdominal surgery History of hysterectomy History of heart artery stent Family History Other COPD (chronic obstructive pulmonary disease) Diabetes Heart disease Social History Smoking Status: Former smoker second hand exposure: No alcohol intake: never substance use type: denies use current occupational status: disabled Travel in the last 8 weeks: None household members: spouse housing: house current occupational exposures/hazards: No caffeine: Yes Have you lived/traveled outside [place] in past 30 days?: No Contact w/someone who lives/traveled outside [place] past 30 days?: No Exposure to someone with infectious disease in past 14 days?: No Do you have a fever (greater than 100.4 F or 38 C)?: No Have you tested positive for COVID-19: No Exposed to someone with COVID-19 in past 14 days?: No Do you have a sore throat?: No Do you have a cough?: No Do you have any weakness?: No Do you have any diarrhea?: No Are you experiencing any unusual bleeding?: No Do you have any muscle aches/pain?: No Do you have any abdominal pain?: No Are you experiencing loss of taste or smell?: No Other Medical History Have you received the Flu Vaccine for this season: Yes Have you received the Pneumonia Vaccine: Yes ROS Obtained: Yes All systems reviewed & no additional complaints except as documented Physical Exam General General appearance: alert, in no apparent distress and anxious Head Head exam: atraumatic and normocephalic Eye Eye exam: Present normal appearance, PERRL and EOMI ENT ENT exam: Present normal exam, normal oropharynx, mucous membranes moist and normal external ear exam Neck Neck exam: Present normal inspection, full ROM and trachea midline; Absent tenderness Chest Chest inspection: Present normal inspection and symmetric chest wall rise; Absent tenderness Respiratory Respiratory exam: Present normal lung sounds bilaterally; Absent respiratory distress, wheezes, stridor or accessory muscle use Cardiovascular Cardiovascular exam: Present regular rate and normal rhythm Abdominal Exam Abdominal exam: Present soft; Absent distention, tenderness or guarding Extremities Exam Extremities exam: Present normal inspection, full ROM and normal capillary refill; Absent tenderness or edema Back Exam Back exam: Present normal inspection and full ROM; Absent tenderness Neurological Exam Neurological exam: Present alert, oriented X3, CN II-XII intact and normal gait; Absent motor sensory deficit Psychiatric Psychiatric exam: Present anxious Skin Skin exam: Present warm and dry Medical Decision Making Medical Records Medical records reviewed: Yes I reviewed the patient's medical records. Screening: Per USPSTF and CDC recommendations, given the prevalence of disease in our region, it is our hospital?s policy to screen for HIV and viral Hepatitis for all patients aged 18 and over and those with ongoing risk factors. Sumeet Inquiry Pt receiving controlled substance: No Vital Signs: 09/08/24 10:06 09/08/24 10:09 09/08/24 10:53 Temperature 97.9 F Temperature Source Oral Pulse Rate 68 59 L Pulse Rate [Left] 71 Respiratory Rate 14 20 19 Blood Pressure 112/56 L 112/56 L Blood Pressure [Right Arm] 112/56 L Blood Pressure Mean [Right Arm] 74 Blood Pressure Source [Right Arm] Automatic Cuff Blood Pressure Position [Right Arm] Sitting 02 Sat by Pulse Oximetry 99 99 98 Oxygen Delivery Method Room Air Room Air Room Air 09/08/24 11:00 09/08/24 11:51 09/08/24 12:00 Temperature Temperature Source Pulse Rate 62 61 60 Pulse Rate [Left] Respiratory Rate 20 Blood Pressure 103/51 L 102/52 L 97/55 L Blood Pressure [Right Arm] Blood Pressure Mean [Right Arm] Blood Pressure Source [Right Arm] Blood Pressure Position [Right Arm] 02 Sat by Pulse Oximetry 97 96 96 Oxygen Delivery Method Room Air Nasal Cannula 09/08/24 12:30 09/08/24 13:03 09/08/24 13:30 Temperature Temperature Source Pulse Rate 59 L 62 68 Pulse Rate [Left] Respiratory Rate Blood Pressure 100/56 L 94/59 L 109/57 L Blood Pressure [Right Arm] Blood Pressure Mean [Right Arm] Blood Pressure Source [Right Arm] Blood Pressure Position [Right Arm] 02 Sat by Pulse Oximetry 97 98 98 Oxygen Delivery Method Nasal Cannula 09/08/24 14:02 Temperature 98.1 F Temperature Source Pulse Rate 60 Pulse Rate [Left] Respiratory Rate 16 Blood Pressure 100/55 L Blood Pressure [Right Arm] Blood Pressure Mean [Right Arm] Blood Pressure Source [Right Arm] Blood Pressure Position [Right Arm] 02 Sat by Pulse Oximetry Oxygen Delivery Method Lab Data Lab results reviewed: Yes I reviewed the patient's lab results. Lab Results 09/08/24 10:06: WBC 5.2, RBC 4.17 L, Hgb 12.7, Hct 38.1, MCV 91.4, MCH 30.5, MCHC 33.3, RDW 12.1, Plt Count 96 L, MPV 12.2 H, Neut % (Auto) 62.1, Lymph % (Auto) 23.3, Mcdonald % (Auto) 8.9, Eos % (Auto) 4.5, Baso % (Auto) 0.8, Neut # (Auto) 3.2, Lymph # (Auto) 1.2, Mcdonald # (Auto) 0.5, Eos # (Auto) 0.2, Baso # (Auto) 0.0, D-Dimer 1.37 H, Sodium 137, Potassium 4.0, Chloride 105, Carbon Dioxide 22, Anion Gap 14.0, BUN 16, Creatinine 0.90, Estimated GFR 61, Est GFR ( Amer) 74, Glucose 127 H, Calcium 9.7, Total Bilirubin 0.6, AST 32, ALT 27, Alkaline Phosphatase 92, Troponin I < 0.01, Total Protein 7.2, Albumin 4.6, Globulin 2.6, Albumin/Globulin Ratio 1.8, Lipase 62, HCV Ab BERNARDA w/Rflx PCR Qn Negative, HIV Ag/Ab Combo Qual Negative 09/08/24 10:25: VBG pH 7.43 H, VBG pCO2 32.5 L, VBG pO2 87.1 H, VBG HCO3 21.1 L, VBG Total CO2 22.1 L, VBG O2 Saturation 97.0 H, VBG Base Excess -3.2 L, VBG Lactic Acid 2.5 H 09/08/24 13:00: Troponin I < 0.01 09/08/24 10:06 09/08/24 10:06 Orders (Tests/Meds): ED MEDICATIONS Discontinued Medications Generic Name Dose Route Start Last Admin Trade Name Freq PRN Reason Stop Dose Admin Acetaminophen 1,000 mg 09/08/24 10:21 09/08/24 10:43 Acetaminophen 1,000mg/100ml Vial IV 09/08/24 10:22 1,000 mg ONCE ONE Administration Aspirin 324 mg 09/08/24 10:21 09/08/24 10:43 Aspirin 81mg Chewable Tablet PO 09/08/24 10:22 324 mg ONCE ONE Administration Belladonna Alkaloids 60 ml 09/08/24 10:21 09/08/24 10:42 Belladonna Alkaloids 60 Ml Ml PO 09/08/24 10:22 60 ml ONCE ONE Administration Iopamidol 80 ml 09/08/24 11:24 09/08/24 11:26 Iopamidol-370 (76%);100ml Bottle IV 09/08/24 11:25 80 ml ONCE ONE Administration Sodium Chloride 10 ml 09/08/24 11:24 09/08/24 11:26 Sodium Chloride 0.9% 10ml Syr (Rad Only) IV 10/08/24 11:23 10 ml NEEDED PRN Administration Maintain IV Site Sodium Chloride 50 ml 09/08/24 11:24 09/08/24 11:26 0.9 % Sodium Chloride 50 Ml Vial IV 09/08/24 11:25 50 ml ONCE ONE Administration ORDERS Category Date Time Status CT abdomen pelvis w con Stat Cat Scan 09/08/24 10:[address] angio chest PE protocol Stat Cat Scan 09/08/24 10:46 Completed CXR 2 view (NOT portable) [XR chest 2V] Stat Exams 09/08/24 10:21 Completed Complete Blood Count Auto Diff Stat Lab 09/08/24 10:06 Completed Comprehensive Metabolic Panel Stat Lab 09/08/24 10:06 Completed D-Dimer Stat Lab 09/08/24 10:06 Completed HIV Combo Stat Lab 09/08/24 10:06 Completed Hepatitis C Ab Qual. W/ RFX Stat Lab 09/08/24 10:06 Completed Lipase Stat Lab 09/08/24 10:06 Completed Trop I [Troponin I] Stat Lab 09/08/24 10:06 Completed Troponin I Q3H Lab 09/08/24 13:00 Completed VBG [Venous Blood Gas] Stat RT 09/08/24 10:25 Completed ECG Data Tracing #1: I reviewed this ECG and interpreted as documented below: Normal sinus rhythm with a ventricular to 75 bpm. Some baseline motion artifact degrades study. PACs. No acute ST changes concerning for STEMI. ECG initial impression date: 09/08/24 ECG initial impression time: 10:08 HEART Score History (anamnesis): Slightly suspicious ECG: Normal Age: >65 years Risk factors: Atherosclerosis history Troponin: </= normal limit HEART Score: 4 Medical Decision Narrative: In summary, this patient is a 74-year-old female presenting to the Emergency Department for evaluation of chest pain. Differential diagnoses considered include but are not limited to ACS, GERD, costochondritis, anxiety, PE, aortic pathology, pancreatitis, gastritis, esophagitis. Ruling out the most morbid conditions drove assessment. It should be noted patient's history includes CAD, MAXIME, hypertension, hyperlipidemia, obesity, emphysema which may or may not be at goal therapy. This complicates all aspects of care by increasing patient's risk for morbidity. I reviewed patient's past medical records and noted previous cardiology evaluations for chest pain in the past. Patient had a CCTA that showed elevated calcium score. Patient had a cath done 08/21 with mild nonobstructive proximal/mid LAD stenosis. I also noted pulmonology evaluations for COPD on home oxygen. It looks like a 2-week event monitor is pending. On exam, the patient is lying in bed, anxious appearing. Vitals are reassuring on cardiac telemetry with an O2 saturation of 99% on her home oxygen, but she states she feels short of breath. Cardiopulmonary exam is reassuring, no significant lower extremity edema. Cannot use PERC criteria to exclude PE given age, but I feel like she is low risk based on Wells score. Workup included CBC, CMP, troponin, lipase, VBG, lactic acid, D-dimer, chest x-ray, EKG. She was given oral aspirin, GI cocktail, and IV acetaminophen for symptomatic improvement. I independently interpreted chest x-ray prior to the radiologist read and noted no large focal consolidation concerning for pneumonia. Please see their read for final interpretation. Labs were obtained that demonstrated reassuring CBC with no significant leukocytosis or anemia, reassuring chemistry with normal kidney function, normal liver enzymes, normal lipase, negative troponin initially. D-dimer was mildly elevated, so decision was made to obtain CT PE protocol as well as CT abdomen pelvis with IV contrast given abdominal pain.. On reassessment, patient had good improvement after administration of GI cocktail, acetaminophen, aspirin. She is feeling a lot better. Vitals remain reassuring on cardiac telemetry. CT scans on my independent interpretation do not demonstrate any large blood clot or any obvious intra-abdominal infection/inflammation. Please see radiology read for final interpretation. Second opponent was obtained and was negative. Given reassuring workup and exam as well as improvement in symptoms, I feel the patient is appropriate for discharge home with close follow-up with primary care, cardiology, and her other specialty care team. She was discharged in stable condition after all questions were answered. Critical Care Critical Care Time Critical Care Time: No
[2024-09-08 11:10] LABS: Troponin I < 0.01 ng/ml (0.00-0.034)
[2024-09-08] MEDS: IOPAMIDOL-370 (76%);100ML BOTTLE 80 ML IV (11:26)
[2024-09-08] MEDS: SODIUM CHLORIDE 0.9% 10ML SYR (RAD ONLY) 10 ML IV (11:26)
[2024-09-08] MEDS: 0.9 % SODIUM CHLORIDE 50 ML VIAL IV (11:26)
--- NOTE | 2024-09-08 11:47 | PC.NURSE ---
I rounded on the pt. She reports she is feeling better. no new needs voiced. no new complaints. call okeefe in reach.
[2024-09-08 12:26] LABS: HIV Combo NEGATIVE (Negative)
[2024-09-08 12:35] LABS: Hepatitis C Ab Qual. W/ RFX NEGATIVE (Negative)
--- NOTE | 2024-09-08 12:52 | PC.NURSE ---
pt is up to bathroom with cane and portable oxygen tank
[2024-09-08 13:48] LABS: Troponin I < 0.01 ng/ml (0.00-0.034)
[2024-09-08 14:31] LABS: Reflex Lactic Add Lactic Reflex
== END 2024-09-08 14:07 | disposition home or self-care (01) ==
PROVIDERS: Emergency Provider Emergency Medicine; PCP Nurse Practitioner Family
DX: R07.9 Chest pain, unspecified (principal)
CPT/HCPCS: 71046; 71275; 74177; 80053; 82803; 83690; 84484; 85025; 85378; 86803; 87389; 93005; 96374; 99285; J0131; Q9967

== ENCOUNTER 2024-09-26 14:25 | Outpatient (CLI) | payer MEDICARE, OTHER, SELFPAY ==
--- NOTE | 2024-09-26 14:27 | XR_ITS ---
FINAL REPORT CLINICAL HISTORY: SOB COMPARISON: 08/06/2024 FINDINGS: No acute pulmonary density is evident. There is no evidence of effusion or other pleural disease. The mediastinum has a normal appearance. Cardiomegaly is noted. IMPRESSION: No acute disease. Reviewed, Interpreted and Dictated by Jenny Stanford MD Transcribed by Christina Reilly Authenticated and [facility]
[2024-09-26 17:53] LABS: Coronavirus 19, PCR Not Detected (NotDetected); Human Rhinovirus Not Detected (NotDetected); Influenza A, PCR Not Detected (NotDetected); Influenza B, PCR Not Detected (NotDetected); Respiratory Syncytial Virus Not Detected (NotDetected)
== END 2024-09-26 23:59 | disposition home or self-care (01) ==
LOC: RAD 14:26
PROVIDERS: PCP Nurse Practitioner Family; Visit Provider Nurse Practitioner Family
DX: R06.02 Shortness of breath (principal); J20.9 Acute bronchitis, unspecified
CPT/HCPCS: 71046; 87631

== ENCOUNTER 2024-11-23 09:47 | Outpatient (CLI) | payer MEDICARE, OTHER, SELFPAY ==
--- OUTSIDE RECORDS SUMMARY | 2024-11-23 09:49 | XMS_ITS | Data Portability ---
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 Epigastric discomfort/history of hiatal hernia: Patient is requesting surgical repair. Will obtain outside endoscopy and imaging records. -change PPI to pantoprazole 40 mg p.o. b.i.d.. -I have scheduled an EGD for evaluation of epigastric pain and recurrence of dysphagia 2. Hematemesis: Change PPI per above. Avoid NSAIDs. EGD has been scheduled 3. Esophageal dysphagia: Previously improved with esophageal dilation. Repeat EGD scheduled. Obtain outside records. [email or web address] Not available 11/08/2022 17:36:49 01/12/2023 01/12/2023 Gertrude Gomez APRN Dear Mery, Want to let you know that I saw Anitra wright in the off state your request she is a 73-year-old woman with multiple medical issues including cardiac and pulmonary problems who has also been suffering from daily reflux for well over 10 years. She has issues with laying flat and recently Dr. El performed an EGD which identified a 5 cm hiatal hernia, ulceration and esophagitis with a stricture at the GE junction but no evidence of Kelley's on pathology. Given the patient's symptomatology you have kindly referred her to me for further evaluation and recommendations. NKDA MEDICATIONS: Documented by the patient and on the chart PAST MEDICAL HISTORY: Positive for asthma, high blood pressure; congestive heart failure; COPD on home O2 PAST SURGICAL HISTORY: Hysterectomy, wrist surgery, rigger up surgery FAMILY HISTORY: Positive for diabetes heart disease and high blood pressure SOCIAL HISTORY: Denies tobacco or alcohol use REVIEW OF SYSTEMS: General: no malaise, fever, no constitutional symptoms of malignancy Eyes: no blurred vision, no loss of vision no change in vision, no discharge Nose: No drainage, no bleeding, no obstruction Oropharynx: No sore throat, no change in voice, difficulty swallowing Pulmonary: shortness of breath, no dyspnea on exertion, no productive cough, no bleeding Cardiac: No chest pain, no palpitation, no racing heartbeat, dyspnea when lying flat Abdominal: No abdominal pain, no nausea, no vomiting, no diarrhea : No dysuria, no hematuria, no lack of urine, no pain with urination Musculoskeletal: No joint pain, no back pain, no muscle pain, no claudication Integumentary: No rashes, no open sores, no open wounds Hematologic: No history of blood clots, no PEs, no history of free bleeding Endocrine: No cold intolerance, no heat intolerance, no polydipsia Neurologic: No loss of consciousness, no gait imbalance, no loss of function or sensation Remaining 14 point ROS noncontributory PHYSICAL EXAM: VS: Respirations 16 pulse 85 blood pressure 130/72. BMI is 39.9 General: Well-developed, alert orient x3. In no obvious distress. HEENT: Normal cephalic atraumatic extraocular muscles intact. No scleral icterus nasal passages are patent without discharge oropharynx is clear. Neck is soft and supple without lateral cervical adenopathy there is no visualized intraoral lesion. CHEST: No accessory muscle use lungs are clear to auscultation. Heart is regular rate and rhythm without murmur ABDOMEN: Soft, nontender nondistended, positive bowel sounds, no hepatosplenomegaly no masses : Grossly normal anatomy, no inguinal adenopathy or herniation EXT: Positive pulses no cyanosis clubbing, positive anti NEURO: Cranial nerves 2-12 grossly intact no focal or motor sensory deficits ASSESSMENT: I had a long and detailed discussion with the patient about her situation. I am not entirely sure she is a operative candidate and I am going to refer her back to cardiology and pulmonology for clearance. In addition there was some question as whether not she has ascites although I can not feel a fluid wave. I am going to double check and see when her last CT scan was and if not done recently we will order one. I am going to go ahead and get her scheduled for an esophagram to evaluate her gastric motility and see the actual size of her hiatal hernia. I will get her back to the office with all of these clearances and x-rays and we will then make an effort to determine what can be done for this woman. I will keep you up-to-date on developments in her case appreciate you asking me to see this nice lady. Sincerely, Gilbert Joya This document has been prepared with the use of voice recognition software and may contain sound alike and software old missions or errors in punctuate velasco and or spelling, etc. [email or web address] Not available 01/12/2023 12:02:08 Plan of Treatment Reminders Order Date Submit Date Provider Last Modified By Organization Details Last Modified Time Details Appointments None recorded. Lab None recorded. Referral None recorded. Procedures None recorded. Surgeries None recorded. Imaging None recorded. Medication Orders pantoprazol e 40 mg tablet,sincere yed release 2022 023 [email or web address] [facility], [address] [place] [address], [id number], 3 17:30:05 Patient TargetsNo targets recorded. Patient InstructionsNo instructions recorded. Reason for Referral None Reported. Results Created Date Observation Date Name Description Value Unit Range Abnormal Flag Note LastModifiedBy Organization Detail LastModifiedTime 01/27/2001/26/2023 XR, lee adan [facility] [address] [place] [address] Phone: Fax: Name: ANITRA SOLIMAN Exam Date: 01/27/20 : 950 Age 72 Gender : F Access ion: [id number] Physic dayne: MATTEO GOMEZ Facili ty: [facility] Facili ty HSV: Outpat ient Exam: ESOPHA GRAM ESOPHA GRAM HISTOR Y: Dyspha kaitlynn. PROCED URE: The patien t ingest ed barium . Efferv escent joe ls were also admini stered . Spot and overhe ad films were obtain ed. FINDIN GS: There is relati ve narrow ing of the distal esopha stanley with wall thicke richard and lumina l irregu larity of the left aspect of the distal esopha stanley. A 13 mm barium tablet does atiya se this narrow ing. There is signif icant gastro esopha geal reflux with large amount s of contra st reflux ing above the aortic arch. There is a modera te sized hiatal hernia . IMPRES DANNA: 1. Relati ve narrow ing of the distal esopha stanley with wall thicke richard and lumina l irregu larity . CT scan of the chest and correl ation with endosc opic result s is recomm ended to exclud e neopla sherrill. 2. Marked gastro esopha geal reflux . 3. Modera te hiatal hernia . Films review ed , interp reted and dictat ed by Dr. Temo Chen Transc ribed by Adal Dangelo PA-C. Dictat ed By: Temo Bales Transc ribed By: Temo Chen Transc ribed On: 01/27/20 9:42 AM Electr onical ly signed by: Temo Bales 01/27/20 Thank you for referr ing ANITRA SOLIMAN to [facility] al. Legall y authen ticate d by ALEXANDRE FOWLER 01-26 09:42: 21 CC'ed Logic: Orderi ng Provid er: GOMEZBOO TRAN CC Provid er: JAMES JOE Attend ing Provid er: GOMEZ MATTEO [place] Referr ing Provid er: PETTY MATTEO TRAN Admitt ing Provid er: PETTY MATTEO TRAN [id number] [facility] - [facility] Therapy [address], [place], [address], 01/26/2023 16:50:23 Result Notes None recorded. Problems Name Problem SNOMED Code Status Onset Date Resolution Date Notes Provider Name and Address Organization Details Recorded Time Moderate chronic obstructive pulmonary disease 356907585 Active 2022 DANA Brar - [place] - [place] & [place] 3 13:52:27 Asthma 534463900 Active 2022 Solange Pantoja [place], [place] - [facility] - [place] & [place] 3 13:52:35 Hiatal hernia 59453256 Active 2022 Jorge Trujillo PA-C [address], [place], [address] , [place] - [facility] - [place] [facility] [place] 3 15:13:48 Esophageal dysphagia 29022659 Active 2022 Jorge Trujillo PA-C [address], [place], [address] , [place] - [facility] - [place] & [place] 3 15:14:13 Epigastric pain 38369594 Active 2022 Jorge Trujillo PA-C [address], [place], [address] , [place] - [facility] - [place] [facility] [place] 3 17:37:03 Heartburn 79164109 Active 2022 Jorge Trujillo PA-C [address], [place], [address] , [place] - [facility] - [place] & [place] 3 17:37:16 Problem Notes None recorded. Procedures Surgical History Date Name Laterality Status Provider Name and Address Organization Details Recorded Time EGD completed Bonitamelany [place] - [facility] & [place] 01/12/2023 11:41:06 Total Hysterectomy completed Bonita [place] - [facility] - [place] & [place] 01/12/2023 11:41:14 Stent Placement completed Bonita [place] - [facility] - [place] [facility] [place] 01/12/2023 11:41:27 excision of tumor of stomach completed Bonitamelany [place] - [facility] - [place] & [place] 01/12/2023 11:41:43 procedure on wrist completed Bonita [place] - [facility] - [place] & [place] 01/12/2023 11:41:53 Imaging Results None recorded. Procedure Notes None recorded. Medical Equipment None Reported. Allergies No known drug allergies Medications Name Sig Start Date Stop Date Status Note LastModified by Organization Details LastModified Time furosemide 40 mg tablet active Not Available Not Available Not Available atorvastati n 40 mg tablet active Not Available Not Available Not Available ipratropium 0.5 mg-albutero l 3 mg (2.5 mg base)/3 mL nebulizatio n soln active Not Available Not Available Not Available cetirizine 10 mg tablet active Not Available Not Available Not Available azithromyci n 250 mg tablet active Not Available Not Available Not Available lisinopril 20 mg tablet active Not Available Not Available Not Available prednisone 20 mg tablet active Not Available Not Available Not Available omeprazole 40 mg capsule,del ayed release Take 1 capsule twice a day by oral route for 30 days. active Not Available Not Available No t Available spironolact one 25 mg tablet active Not Available Not Available Not Available pantoprazol e 20 mg tablet,sincere yed release 11/08 completed Not Available Not Available Not Available gabapentin 800 mg tablet active Not Available Not Available Not Available trazodone 100 mg tablet active Not Available Not Available Not Available cephalexin 500 mg capsule active Not Available Not Available Not Available pantoprazol e 40 mg tablet,sincere yed release Take 1 tablet twice a day by oral route before meals for 30 days. 2022 active Not Available Not Available Not Avai lable venlafaxine 37.5 mg tablet active Not Available Not Available Not Available buspirone 10 mg tablet active Not Available Not Available Not Available omeprazole 20 mg capsule,del ayed release active Not Available Not Available Not Available verapamil 80 mg tablet active Not Available Not Available Not Available Ventolin HFA 90 mcg/actuati on aerosol inhaler active Not Available Not Available Not Available hydroxyzine pamoate 25 mg capsule active Not Available Not Available N ot Available escitalopra m 20 mg tablet active Not Available Not Available Not Available Symbicort 160 mcg-4.5 mcg/actuati on HFA aerosol inhaler active Not Available Not Available Not Available Anoro Ellipta 62.5 mcg-25 mcg/actuati on powder for inhalation active Not Available Not Available N ot Available BinaxNOW COVID-19 Ag Self Test kit TEST DIRECTED TODAY 11/08 completed Not Available Not Available Not Available Vitals Date Recorded Body weight Body mass index (BMI) Body height Oxygen saturation Oxygen saturation in Arterial blood by Pulse oximetry Heart rate Systolic blood pressure Diastolic blood pressure Provider Name and Address Organization Details Last Updated DateTime 3 563116. 57 g 40 kg/m2 170.18 cm 95 % 95 % 85 /min 146 mm[Hg] 83 mm[Hg] Solange Pantoja [facility] & [place] 3 13:54:09 Date Recorded Body height Body mass index (BMI) Body weight Body temperature Oxygen saturation Oxygen saturation in Arterial blood by Pulse oximetry Heart rate Systolic blood pressure Diastolic blood pressure Provider Name and Address Organization Details Last Updated DateTime 3 170.18 cm 39.9 kg/m2 476220. 05 g 97.1 [degF] 96 % 96 % 85 /min 130 mm[Hg] 82 mm[Hg] Bonita miranda [facility] & [place] 3 11:38:46 Social History Question Answer Notes LastModified by Gozent Details LastModified Time Tobacco Smoking Status Never Smoker Solange Pantoja [facility] & [place] 11/08/2022 13:54:42 What Is Your Level Of Caffeine Consumption? Occasional Information not available 11/08/2022 Sex: Unknown Functional Status Question Answer Note LastModified by Gozent Details LastModified Time Do you use any illicit or recreational drugs? No Information not available 11/08/2022 What is your level of alcohol consumption? None Information not available 11/08/2022 Mental Status None recorded. Family History Relationship Description Onset Age of this Age Resolved Age Notes LastModified by Organization Details LastModified Time Father Diabetes mellitus [email or web address] Not available 11:40:40 Mother Diabetes mellitus [email or web address] Not available 11:40:40 Mother Heart disease [email or web address] Not available 11:40:50 Brother Diabetes mellitus [email or web address] Not available 11:40:40 Sister Diabetes mellitus [email or web address] Not available 11:40:40 Medical History Condition Response COPD Y Stroke High Cholesterol Y Asthma Y Heart Disease Y Hypertension Y Gynecological HistoryNo gynecological history recorded. Obstetrics History GPAL:G 0 P 0 0 0 0 Immunizations Vaccine Type Date Status Note Provider Nam e and Address Organization Details Recorded Time Influenza, adjuvanted, trivalent, PF 0 completed Solange Pantoja [place], [place] [facility] & [place] 11/08/2022 13:38:09 Influenza, adjuvanted, trivalent, PF 7 completed Solange Pantoja [place] [facility] - [place] 11/08/2022 13:38:09 Influenza, high-dose, quadrivalent, PF 1 completed Solange Pantoja [place] [facility] [place] 11/08/2022 13:38:09 Influenza, high-dose, quadrivalent, PF 0 completed Solange Pantoja [place] [facility] [place] 11/08/2022 13:38:09 Influenza, adjuvanted, quadrivalent, PF 2 completed Solange Pantoja [place] [facility] [place] 11/08/2022 13:38:09 COVID-19, mRNA, LNP-S, PF, 100 mcg/0.5mL dose or 50 mcg/0.25mL dose 1 completed Solange Pantoja null, [place] - [facility] & [place] 11/08/2022 13:38:09 COVID-19, mRNA, LNP-S, PF, 100 mcg/0.5mL dose or 50 mcg/0.25mL dose 1 completed Solange Pantoja [place] [facility] [place] [facility] [place] 11/08/2022 13:38:09 COVID-19, mRNA, LNP-S, PF, 100 mcg/0.5mL dose or 50 mcg/0.25mL dose 1 completed Solange Pantoja [place], [place] [facility] & [place] 11/08/2022 13:38:09 pneumococcal polysaccharide PPV23 0 completed Solange Pantoja [place] [facility] [place] 11/08/2022 13:38:09 Pneumococcal conjugate PCV 13 6 completed Solange Pantoja [place] [facility] [place] 11/08/2022 13:38:10 Influenza, high-dose, trivalent, PF 8 completed Solange Pantoja [place] [facility] [place] 11/08/2022 13:38:10 Influenza, split virus, trivalent, preservative 1 completed Solange Pantoja [place] [facility] [place] 11/08/2022 13:38:10 Influenza, split virus, trivalent, preservative 0 completed Solange Pantoja [place] [facility] [place] 11/08/2022 13:38:10 Influenza, split virus, trivalent, preservative 9 completed Solange Pantoja [place] [facility] [place] 11/08/2022 13:38:10 Influenza, split virus, trivalent, preservative 8 completed Solange Pantoja null, [place] - [facility] - [place] & [place] 11/08/2022 13:38:10 Influenza, split virus, trivalent, PF 6 completed Solange Pantoja null, [place] - [facility] - [place] & [place] 11/08/2022 13:38:10 Past Encounters Encounter ID Performer Location Encounter Start Date Encounter Closed Date Diagnosis/Indication Diagnosis SNOMED-CT Code Diagnosis ICD10 Code Diagnosis Note [id number] Jorge Trujillo PA-C [facility] [address] [address] 11/08/2022 13:26:42 11/08/2022 15:14:04 Esophageal dysphagia 82374242 R13.19 Epigastric pain 93339715 R10.13 Heartburn 33353982 R12 Hiatal hernia 26156413 K 44.9 [id number] Gilbert Joya MD [facility] General Surgery [address] [place], [place] [address] [place] [address] 01/12/2023 11:25:11 01/12/2023 12:02:07 Health Concerns Section Related Observation LastModified by Organization Detai ls LastModified Time None Recorded Concern Status LastModified by Organization Details LastModified Time None Recorded Advance Directives Directive None Recorded Payers Insurance Date Sequence Insurance Name Policy Number Policy Denise Covered Member ID Denise Member ID Guarantor Name 01/31/2023 1 [place] Anitra Zhou [id number] Anitra Zhou 02/18/2023 2 [employer] [facility] (MEDICAID HMO) Anitra Zhou [id number] Anitra Zhou Notes Date Note Type Note Provider Name and Address Organization Details Recorded Time 11/08/2022 text/html Ms. Zhou is a 72-year-old female who was referred by Dr. Kiser for evaluation of a previously diagnosed hiatal hernia. No outside records are currently available. The patient reports a history of EGD and esophagram performed at [facility] that indicated she has a hiatal hernia. She reports her symptoms manifest as epigastric discomfort and dysphagia. She has also had a recent episode of hematemesis. She reports undergoing esophageal dilation in the past that has been helpful for dysphagia. She is taking Omeprazole 20 mg p.o. once daily. She reports intermittent heartburn despite this. She Jorge Trujillo PA-C [address] , [place], [address], [facility] - [place] - [place] 11/08/2022 17:38:53 OBGyn Episode No OBEpisode recorded.
--- NOTE | 2024-11-23 13:30 | PC.NURSE ---
6 Minute walk test completed without incident, Pt tolerated well.
== END 2024-11-23 23:59 | disposition home or self-care (01) ==
LOC: RT 09:48
PROVIDERS: PCP Nurse Practitioner Family; Visit Provider Internal Medicine Pulmonary Disease
DX: R06.09 Other forms of dyspnea (principal); R06.02 Shortness of breath
CPT/HCPCS: 94618

== ENCOUNTER 2024-12-13 09:18 | Day surgery (SDC) | payer MEDICARE, OTHER, SELFPAY ==
[2024-12-13] VITALS (7 sets, daily range): BP systolic 101–132; BP diastolic 60–68; PULSE 74–104; RESP 16–18; TEMP 36.1; O2SAT 95–98; BMI 41.3
[2024-12-13] MEDS: LACTATED RINGERS 1000ML 1,000 ML 50 ML IV (10:01)
--- NOTE | 2024-12-13 10:19 | EXP.ANES.CKL ---
[facility] Disclaimer: The information contained in this section may have been updated after the patient was seen, as this information can be updated by other users. Medical History CAD (coronary artery disease) Palpitations Abnormal nuclear cardiac imaging test Anxiety Pulmonary emphysema Asthma Hiatal hernia She has a moderate size hiatal hernia associated with epigastric discomfort, symptomatic GERD and dyspnea with essentially noncontributory PFTs and overnight oximetry without evidence of significant SaO2 saturation. Hiatal hernia may be the main etiology for dyspnea since on occasion taken because left atrial compression, increased pulmonary venous pressure with production of interstitial edema and reduction of pulmonary compliance. GERD (gastroesophageal reflux disease) Symptomatic Dyspnea on exertion On statin therapy Restless sleeper Daytime somnolence Chronic obstructive pulmonary disease Hyperlipidemia Hypertensive disorder Surgical History History of esophagogastroduodenoscopy (EGD) History of cardiac cath Hx of heart artery stent History of breast surgery History of abdominal surgery History of hysterectomy History of heart artery stent Family History Other COPD (chronic obstructive pulmonary disease) Diabetes Heart disease Social History Smoking Status: Former smoker second hand exposure: No alcohol intake: never substance use type: denies use current occupational status: disabled Travel in the last 8 weeks?: None household members: spouse housing: house current occupational exposures/hazards: No caffeine: No Have you lived/traveled outside [place] in past 30 days?: No Contact w/someone who lives/traveled outside US past 30 days?: No Exposure to someone with infectious disease in past 14 days?: No Do you have a fever (greater than 100.4 F or 38 C)?: No Have you tested positive for COVID-19?: No Exposed to someone with COVID-19 in past 14 days?: No Do you have a sore throat?: No Do you have a cough?: No Do you have any weakness?: No Do you have any diarrhea?: No Are you experiencing any unusual bleeding?: No Do you have any muscle aches/pain?: No Do you have any abdominal pain?: No Are you experiencing loss of taste or smell?: No [facility] Anesthesia Checklist Patient Identification Patient Identification: Verbal (Name & ) Structural Data Admitted From: Home Planned Operative Procedure/s: egd,colon Consent for Planned Operative Procedure(s) Verified: Yes NPO Status Verified Time NPO: 00:00 Additional verifications Anesthesia Reactions: No Hx Blood Transfusions: No Blood Transfusion Reaction: No Airway Assessment Mallampati Score:: Class II C-Spine Mobility Assessed: Yes TMJ Mobility Assessed: Yes Dentition: Poor Dentition Neurological Assessment Level of Consciousness: Awake, Alert and Appropriate Anesthesia Plan Anesthesia Risk discussed: Yes Anesthesia Plan: Verified ASA Class: III Anesthesia Type: MAC
--- NOTE | 2024-12-13 10:49 | P.HP_ITS ---
History of Present Illness *Admission Date: 12/13/24 *History of present illness: Mrs. Zhou is a 74-year-old female with reflux, nausea, bloating, belching and dysphagia for upper endoscopy and chronic constipation and family history of colon cancer and family history of Crohn's for colonoscopy who is here for diagnostic panendoscopy. The examination is deemed medically necessary for EGD and colonoscopy. The patient has been seen, interviewed and examined prior to the procedure by both myself and the anesthesia provider. [facility] Disclaimer: The information contained in this section may have been updated after the patient was seen, as this information can be updated by other users. Medical History CAD (coronary artery disease) Palpitations Abnormal nuclear cardiac imaging test Anxiety Pulmonary emphysema Asthma Hiatal hernia She has a moderate size hiatal hernia associated with epigastric discomfort, symptomatic GERD and dyspnea with essentially noncontributory PFTs and overnight oximetry without evidence of significant SaO2 saturation. Hiatal hernia may be the main etiology for dyspnea since on occasion taken because left atrial compression, increased pulmonary venous pressure with production of interstitial edema and reduction of pulmonary compliance. GERD (gastroesophageal reflux disease) Symptomatic Dyspnea on exertion On statin therapy Restless sleeper Daytime somnolence Chronic obstructive pulmonary disease Hyperlipidemia Hypertensive disorder Surgical History History of esophagogastroduodenoscopy (EGD) History of cardiac cath Hx of heart artery stent History of breast surgery History of abdominal surgery History of hysterectomy History of heart artery stent Family History Other COPD (chronic obstructive pulmonary disease) Diabetes Heart disease Social History Smoking Status: Former smoker second hand exposure: No alcohol intake: never substance use type: denies use current occupational status: disabled Travel in the last 8 weeks?: None household members: spouse housing: house current occupational exposures/hazards: No caffeine: No Have you lived/traveled outside [place] in past 30 days?: No Contact w/someone who lives/traveled outside [place] past 30 days?: No Exposure to someone with infectious disease in past 14 days?: No Do you have a fever (greater than 100.4 F or 38 C)?: No Have you tested positive for COVID-19?: No Exposed to someone with COVID-19 in past 14 days?: No Do you have a sore throat?: No Do you have a cough?: No Do you have any weakness?: No Do you have any diarrhea?: No Are you experiencing any unusual bleeding?: No Do you have any muscle aches/pain?: No Do you have any abdominal pain?: No Are you experiencing loss of taste or smell?: No Other Medical History Have you received the Flu Vaccine for this season: Yes Have you received the Pneumonia Vaccine: Yes Review of Systems Review of Systems Review of systems (narrative): Negative *Cardiovascular Comments: Negative *Gastrointestinal Comments: Negative *Genitourinary Comments: Negative *Musculoskeletal Comments: Negative *Neurologic Comments: Negative Meds Home Medications and Allergies Home Medications ?Medication ?Instructions ?Recorded ?Confirmed ?Type aspirin 81 mg tablet,delayed 81 mg PO DAILY heart heal th #90 11/21/19 12/13/24 Rx release tabs cetirizine 10 mg tablet See Rx Instructions .Route 0 07/30/22 12/13/24 History .COMPLEX allergies albuterol sulfate 90 mcg/actuation 90 mcg inhalation Q 6HP PRN Dyspnea 04/02/23 12/13/24 History aerosol inhaler (Ventolin HFA) ipratropium 0.5 mg-albuterol 3 mg 3 ml inhalation Q6HP PRN Dyspnea 04/02/23 12/13/24 History (2.5 mg base)/3 mL nebulization soln buspirone 10 mg tablet See Rx Instructions .Route 1 07/06/22 12/13/24 Rx .COMPLEX #90 tabs cholecalciferol (vitamin D3) 1,250 See Rx Instructions .Route 08/02/24 12/13/24 Rx mcg (50,000 unit) capsule .COMPLEX #7 caps escitalopram oxalate 20 mg tablet See Rx Instructions .Route 08/02/24 12/13/24 Rx .COMPLEX #90 tabs hydroxyzine pamoate 25 mg capsule See Rx Instructions .Route 08/02/24 12/13/24 Rx .COMPLEX #90 caps pantoprazole 40 mg tablet,delayed See Rx Instructions .Route 08/02/24 12/13/24 Rx release .COMPLEX #90 tabs trazodone 100 mg tablet See Rx Instructions .Route 0 08/02/24 12/13/24 Rx .COMPLEX #90 tabs metoprolol succinate 25 mg 25 mg PO DAILY #90 tabs 12/13/24 Rx tablet,extended release 24 hr rivaroxaban 20 mg tablet (Xarelto) 20 mg PO DAILY #90 tabs 09/13/24 12/13/24 Rx budesonide-formoterol HFA 160 See Rx Instructions .Rou te 09/19/24 12/13/24 Rx mcg-4.5 mcg/actuation aerosol .COMPLEX #10.3 grams inhaler (Breyna) furosemide 40 mg tablet See Rx Instructions .Route 0 09/26/24 12/13/24 Rx .COMPLEX #30 tabs lisinopril 20 mg tablet See Rx Instructions .Route 0 09/26/24 12/13/24 Rx .COMPLEX #90 tabs atorvastatin 40 mg tablet See Rx Instructions .Route 0 10/09/24 12/13/24 Rx .COMPLEX #90 tabs venlafaxine 37.5 mg tablet See Rx Instructions .Route 10/09/24 12/13/24 Rx .COMPLEX #90 tabs verapamil 80 mg tablet See Rx Instructions .Route 0 10/09/24 12/13/24 Rx .COMPLEX #90 tabs enoxaparin 120 mg/0.8 mL 120 mg (0.8 mL) SQ .COMPLEX #4 mL 11/27/24 12/13/24 Rx subcutaneous syringe fluticasone propionate 50 1 spray intranasal BID PRN a llergy 12/04/24 12/13/24 Rx mcg/actuation nasal symptoms 90 days #16 grams spray,suspension (Flonase Allergy Relief) spironolactone 25 mg tablet See Rx Instructions .Route 12/04/24 12/13/24 Rx .COMPLEX #180 tabs New Prescriptions to Start Prescriptions: Allergies Allergy/AdvReac Type Severity Reaction Status Date / Time No Known Allergies Allergy Verified 11/27/24 11:39 Exam Data for Last 24 hours Vital signs and Labs for Last 24 Hours: Temp Pulse Resp BP Pulse Ox O2 Del Method O2 Flow Rate 97 F L 104 H 16 101/62 L 96 Nasal Cannula 3 12/13/24 10:08 12/13/24 10:08 12/13/24 10:08 12/13/24 10:08 12/13/24 10:08 12/13/24 10:08 12/13/24 10:08 I & O for Last 24 hours: Intake & Output 12/10/24 12/11/24 12/12/24 12/13/24 23:59 23:59 23:59 23:59 Weight 256 lb *Routine HEENT Exam Head: Present normocephalic Eye: Present EOMI and PERRL ENT: Present mucous membranes moist *Routine Neck Exam Neck: Present supple *Routine Respiratory Exam Respiratory: Present CTA bilaterally *Routine Cardiovascular Exam Cardiovascular: Present RRR *Routine Abdominal Exam Abdominal: Present soft and normoactive bowel sounds; Absent tenderness *Routine Rectal Exam Rectal:: deferred *Routine Genitalia Exam Genitalia:: deferred *Routine Extremities Exam Extremities: Absent cyanosis, clubbing or edema *Routine Skin Exam Skin: Present warm; Absent rash *Routine Neurological Exam Neurological: Present alert and oriented X3 Assessment and Plan *Assessment and plan (1) Nausea & vomiting: Status: Acute Category: Medical Code(s): R11.2 - Nausea with vomiting, unspecified (2) Regurgitation of food: Status: Acute Category: Medical Code(s): R11.10 - Vomiting, unspecified (3) Dysphagia: Status: Acute Category: Medical Code(s): R13.10 - Dysphagia, unspecified (4) Bloating: Status: Acute Category: Medical Code(s): R14.0 - Abdominal distension (gaseous) (5) Epigastric pain: Status: Acute Category: Medical Code(s): R10.13 - Epigastric pain (6) Chest pain: Status: Acute Category: Medical Code(s): R07.9 - Chest pain, unspecified (7) Chronic constipation: Status: Acute Category: Medical Code(s): K59.09 - Other constipation (8) Family history of colon cancer: Status: Acute Category: Medical Code(s): Z80.0 - Family history of malignant neoplasm of digestive organs (9) Family history of Crohn's disease: Status: Acute Category: Medical Code(s): Z83.79 - Family history of other diseases of the digestive system Plan A/P: 1. Nausea/vomiting, regurgitation of food, bloating, epigastric pain/dyspepsia and dysphagia for upper endoscopy and chronic constipation with abdominal pain and bloating with family history of colon cancer and Crohn's disease for colonoscopy is the preprocedural diagnosis. The patient will be anesthetized/sedated using MAC sedation. The patient has been seen and examined. Cardiac and lung assessment prior to the examination is stable. Proceed with planned EGD and colonoscopy.
--- NOTE | 2024-12-13 10:51 | HMH.PROCNOTE ---
[facility] Procedure Note Date: 12/13/24 Time: 11:05 Procedure Note:: Upper Endoscopy Procedure Report: Esophagogastroduodenoscopy with cold biopsies and TTS balloon dilation Endoscopost: Edu Ward II, MD Referring Physician: MARQUISE Guerrero Date of Procedure: March 15, 2025 Equipment: Olympus GIF 190 standard upper endoscope Sedation: MAC sedation Indications: Mrs. Zhou is a 74-year-old female who is here for diagnostic EGD and colonoscopy. The patient has struggled with dyspepsia, abdominal pain, bloating and constipation. She reports nausea and vomiting postprandially with regurgitation of food. She has GERD and some dysphagia. She reports early satiety and belching. She has had a lot of epigastric abdominal pain and pressure. She reports no melena or hematochezia. She has had no unintentional weight loss. She does state that she had a moderate to large hiatal hernia and this was identified at the time of her EGD with Scot Gallagher in 2022. Procedure: Prior to the procedure, a history and physical exam was performed, and patient's medications and allergies were reviewed. The risks, benefits and alternatives of the sedation and procedure were discussed with the patient. All questions were answered and informed consent was obtained. The patient was brought to the procedure room. Patient identification and proposed procedure were verified by the physician and the nurse. The patient was placed in a left lateral decubitus position and the scope was passed under direct vision. Throughout the procedure, the patient's blood pressure, pulse, and oxygen saturations were monitored continuously. The upper GI endoscopy was accomplished without difficulty. The patient tolerated the procedure well. Findings: The scope was passed directly into the upper esophagus and advanced to the fourth portion of duodenum and proximal jejunum. A cold biopsy was taken from the proximal jejunum for disaccharidase assay. The proximal jejunum, post bulbar duodenum, ampulla and duodenal bulb were normal with normal mucosa and conniventes. The scope was withdrawn through a normal duodenal bulb and pylorus into the stomach. There was some linear reactive gastropathy of the antrum. The body and fundus of the stomach were grossly normal. Upon retroflexion there was a 2 to 3 cm hiatal hernia with a single Holden's erosion. Cold biopsies were taken from the antrum to rule out H. pylori. The scope was then withdrawn into the esophagus. There were at least 2 tongues of salmon-colored mucosa in the distal esophagus that were biopsied to rule out short segment Kelley's esophagus. There was no evidence of reflux esophagitis, candidal esophagitis, corrugation or furrowing. There was a proximal esophageal inlet patch. The entire esophagus was dilated to 60 [place]/20 mm with a TTS hydrostatic balloon. There was some resistance at the cricopharyngeus. The remainder of the esophageal mucosa was normal. Impression: 1. Cricopharyngeal spasm status post dilation to 20 mm 2. Distal esophageal tongues of salmon-colored mucosa?biopsies taken to rule out short segment Kelley's esophagus 3. 2 to 3 cm medium sized hiatal hernia with linear Holden's erosion 4. Mild antral reactive gastropathy Plan: I will follow-up the biopsies. We will discuss treatment options. 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 Most of her symptoms of reflux and dyspepsia are related to and driven by lower intestinal gas pressure gradients/high gas pressure buildup resulting in backflow of bile and peptic fluid from the duodenum into the stomach (duodenal reflux). This gas production (carbon dioxide, hydrogen, methane, etc.) from the lower intestinal tract is the byproduct of colonic bacterial fermentation. This colonic fermentation occurs when there is more carbohydrate (dietary starches, sugars and high residue plant fiber) substrate that does not get digested (in the middle or small intestine) or occurs when there is colonic fecal buildup and colonic bacterial overgrowth. This indeed leads to bloating and the gas pressure buildup with gas pressure gradients that do drive backflow and dyspepsia.
--- NOTE | 2024-12-13 11:06 | HMH.PROCNOTE ---
[facility] Procedure Note Date: 12/13/24 Time: 11:19 Procedure Note:: Colonoscopy Procedure Report: Colonoscopy with cold snare polypectomy Endoscopist: Edu Ward II, MD Referring physician: MARQUISE Guerrero Date of Procedure: December 13, 2024 Equipment: Olympus 190 variable stiffness pediatric colonoscope Sedation: MAC sedation Indication: Mrs. Zhou is a 74-year-old female who is here for diagnostic colonoscopy secondary to generalized abdominal discomfort, bloating and constipation. She also states that her mother had colon cancer in her 50s. She has 2 sisters with Crohn's disease. She may skip 3 to 4 days without a bowel movement and reports incomplete defecation with straining and excessive wiping. She reports no bright red rectal bleeding or weight loss. The patient's last colonoscopy was more than 10 years ago. Procedure: Prior to the procedure, a history and physical exam was performed, and patient's medications and allergies were reviewed. The risks, benefits and alternatives of the sedation and procedure were discussed with the patient. All questions were answered and informed consent was obtained. The patient was brought to the procedure room. Patient identification and proposed procedure were verified by the physician and the nurse. The patient was placed in a left lateral decubitus position and the scope was passed under direct vision. Throughout the procedure, the patient's blood pressure, pulse, and oxygen saturations were monitored continuously. The colonoscopy was accomplished without difficulty. The patient tolerated the procedure well. Findings: On digital rectal examination there was normal rectal tone. There were no external hemorrhoids. The colonoscope was introduced through the anal canal to the rectum and advanced to the cecum. The ileocecal valve and appendiceal orifice were identified. The scope was advanced a short distance into the ileum which appeared grossly normal. The scope was then withdrawn into the colon. There were 2 diminutive polyps in the ascending colon (2 and 3 mm) which were both removed via cold snare polypectomy. The cecum, ascending and transverse colon and mucosa were grossly normal. There were extensively scattered diverticuli throughout the descending and sigmoid colon (LEFT colon). The rectum itself was normal. Upon retroflexion within the rectum there were grade 1-2 internal hemorrhoids. The preparation was excellent throughout with [place] Preparation Score of 9. The cecal time was 12 minutes. Impression: 1. Diminutive colonic polyps x 2 (2 and 3 mm) 2. Extensive left-sided diverticulosis 3. Grade 1-2 internal hemorrhoids Plan: I will follow-up the polyp histology and do not feel that the patient will require any further preventive/surveillance colonoscopy because of age and comorbidities. The patient does have functional dyspepsia and primarily IBS constipation. I would recommend initiation of Linzess. I will discuss the findings with the patient and family.
[2024-12-19 15:20] LABS: Disclaimer Notes (.); Interpretation Notes (.); Lactase 35.74 (>/= 14.0); Palatinase 24.21 (>/= 8.5); Reference Notes (.); Sucrase 89.46 (>/= 25.0)
== END 2024-12-13 12:29 | disposition home or self-care (01) ==
PROVIDERS: PCP Nurse Practitioner Family; Visit Provider Internal Medicine Gastroenterology
PROC: 0DJ08ZZ Inspection of Upper Intestinal Tract, Via Natural or Artificial Opening Endoscopic (ICD-10-PCS; CPT 45378; principal; 2024-12-13 11:00)
DX: D12.2 Benign neoplasm of ascending colon (principal); K57.30 Diverticulosis of large intestine without perforation or abscess without bleeding; K64.1 Second degree hemorrhoids; K44.9 Diaphragmatic hernia without obstruction or gangrene; K31.89 Other diseases of stomach and duodenum; K59.09 Other constipation; I25.10 Atherosclerotic heart disease of native coronary artery without angina pectoris; R00.2 Palpitations; F41.9 Anxiety disorder, unspecified; J43.9 Emphysema, unspecified; J45.909 Unspecified asthma, uncomplicated; K21.9 Gastro-esophageal reflux disease without esophagitis; R45.1 Restlessness and agitation; E78.5 Hyperlipidemia, unspecified; I10 Essential (primary) hypertension; Z95.5 Presence of coronary angioplasty implant and graft; Z80.0 Family history of malignant neoplasm of digestive organs; Z83.79 Family history of other diseases of the digestive system; Z90.710 Acquired absence of both cervix and uterus; Z87.891 Personal history of nicotine dependence; R10.84 Generalized abdominal pain; Z79.899 Other long term (current) drug therapy; Z79.52 Long term (current) use of systemic steroids; Z79.82 Long term (current) use of aspirin
CPT/HCPCS: 43239; 43249; 45385; 82657; C1726; J2003; J2704; J7120